=== PATIENT | male | born 1935 | race Caucasian/White ===

== ENCOUNTER 2018-10-26 18:04 | Inpatient (IN) ==
[2018-10-26] MEDS ORDERED: TYLENOL PO PRN ×2 (18:46→18:56)
[2018-10-26] MEDS ORDERED: DESYREL PO PRN (18:56)
[2018-10-26] MEDS ORDERED: ULTRACET 37.5MG/325MG PO PRN (18:56)
--- NOTE | 2018-10-26 20:10 | HISTORY AND PHYSICAL ---
PRIMARY CARE PHYSICIAN: Dr. Jakub Peres. CHIEF COMPLAINT: Massive lower extremity edema with oozing, right greater than left. HISTORY OF PRESENT ILLNESS: An 83-year-old white male with a complicated past medical history presents for evaluation of above-mentioned symptoms. Pertinent history of present illness began several months ago. At that time, patient developed increasing lower extremity edema. The patient has been treated on multiple occasions with diuretics as well as with antibiotics secondary to venous stasis ulceration. Patient has been instructed to elevate his legs when sitting. We have also discussed lymphedema treatment, although the patient is not willing. Over the course of the last week, patient has redeveloped a massive lower extremity edema, right greater than left. The patient has developed increasing oozing to the right lower extremity. He states overall he feels well. He denies chest discomfort, palpitations, shortness of breath, nausea, vomiting, dysuria, hematuria, pyuria, and changes in bowel movements. The patient presented to my office today after his assisted living facility encouraged evaluation secondary to progressive symptoms. Because of severity of his disease and concern for lower extremity compromised, patient will be admitted to the hospital for full evaluation and management. PAST MEDICAL HISTORY: 1. Dementia treated with Aricept and Seroquel therapy. 2. Longstanding stasis dermatitis. 3. Longstanding lower extremity edema secondary to venous stasis and diastolic dysfunction. 4. Benign prostatic hypertrophy. 5. Reflux disease. 6. Hypertension. 7. Hypertriglyceridemia. 8. Gout. 9. Hyperlipidemia. 10. Hypokalemia. 11. Impaired fasting glucose. 12. Low HDL. 13. Anticoagulation secondary to atrial fibrillation. 14. Low back pain. 15. Mitral regurgitation. 16. History of a laryngeal mass status post resection in 1970. 17. Nephrolithiasis. 18. Osteoarthritis. 19. Paroxysmal atrial fibrillation. 20. History of 2 melanomas status post resection. Last was in 2009 and included positive axillary lymph nodes. 21. Insomnia. 22. Longstanding diastolic dysfunction. CURRENT MEDICATIONS: 1. Acetaminophen 650 mg every 6 hours as needed. 2. Aricept 10 mg at bedtime. 3. Citalopram 20 mg daily. 4. Coumadin 2 mg nightly except 3 mg on Sundays and Wednesdays. 5. Fenofibrate 145 mg at bedtime. 6. Finasteride 5 mg daily. 7. Hydrochlorothiazide 25 mg daily. 8. Omeprazole 20 mg twice daily. 9. Potassium chloride 10 mEq 2 tablets in the morning. 10. Pravastatin 20 mg at bedtime. 11. Seroquel 25 mg at bedtime. 12. Tamsulosin 0.4 mg daily. 13. Tenormin 25 mg 1/2 tablet twice daily. 14. Trazodone 50 mg at bedtime. 15. Verapamil ER 120 mg twice daily. 16. Zofran as needed. ALLERGIES: The patient states he is allergic to codeine which causes nausea and vomiting. SOCIAL HISTORY: Patient previously smoked 1-1/2 packs per day for 20 years. He stopped in 1971. He denies alcohol or illicit drug use. 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 He previously enjoyed golf. He does not exercise routinely. FAMILY HISTORY: Patient's father passed at age 84 secondary to complications of lung cancer. Patient's mother passed at age 74 secondary to complications of a stroke. REVIEW OF SYSTEMS: A 12 point review of systems was performed. Pertinent positives and negatives noted in history present illness. PHYSICAL EXAMINATION: VITAL SIGNS: Temperature 97.8 degrees, heart rate 87, respirations 16, blood pressure 119/74. GENERAL: Well nourished, well developed, no acute distress. HEENT: Normocephalic, atraumatic. Pupils equal, round, react to light. Extraocular muscles intact. Sclerae anicteric. [place] conjunctivae. Oral and nasopharynx clear without exudate. NECK: Supple. No lymphadenopathy. No thyromegaly. No bruits auscultated. CARDIOVASCULAR: Regular rate and rhythm. No significant murmurs, rubs, or gallops. PULMONARY: Clear to auscultation bilaterally. ABDOMEN: Soft, nontender, nondistended. Positive bowel sounds. EXTREMITIES: Moves all extremities well. No significant clubbing or cyanosis. 3+ lower extremity edema on the right with ulceration and oozing, 2+ lower extremity edema on the left. NEUROLOGIC: Cranial nerves 2-12 grossly intact. Motor and sensory grossly intact. PSYCHOLOGIC: Reveals pleasant dementia. LABORATORY DATA: Pending at the time of admission. ASSESSMENT AND PLAN: An 83-year-old white male with a complicated past medical history as noted presents for evaluation of massive lower extremity edema with associated oozing, erythema, and localized fever. Patient will be admitted to the hospital for full evaluation and management of each of these conditions. 1. Admit to General Medicine. 2. Massive lower extremity edema-this likely is a combination of diastolic heart failure and venous insufficiency. We will check labs to confirm adequate renal function. If this returns adequate, we will initiate Lasix therapy. We will treat patient's lower extremity ulcers with associated cellulitis as described below. Long-term, patient would benefit from lower extremity compression hose. Thus far, he has been noncompliant. 3. Venous stasis ulcerations-patient does have sloughing of the skin of the right lower extremity. This likely is secondary to venous stasis. We will treat patient's edema as noted. We will consult wound care. We will treat cellulitis as described below. 4. Cellulitis-this is likely secondary to compromised skin to the right lower extremity. We will treat patient with doxycycline therapy. We will treat underlying massive lower extremity edema as described above. 5. Benign prostatic hypertrophy-we will continue patient on Flomax and finasteride therapy. 6. Reflux disease-symptoms are controlled with omeprazole therapy. We will continue this. 7. Hypertension-we will continue patient's home medications for now. We will remain aware that verapamil may be contributing to his lower extremity edema. At this point, he is being treated for underlying paroxysmal atrial fibrillation as well. We will consider adjusting those medications while hospitalized and while on telemetry. 8. Hypertriglyceridemia-we will continue fenofibrate therapy. 9. Hyperlipidemia-we will continue patient on pravastatin therapy. 10. Paroxysmal atrial fibrillation-we will remain aware. We will follow patient on telemetry. 11. Fluid, electrolytes, nutrition. We will monitor electrolytes. Saline lock IV. Cardiac prudent diet. 12. Prophylaxis. Patient will be continued on Coumadin therapy. cc: Jakub Peres MD
[2018-10-26 20:25] LABS: BASO# 0.02 X1000 (0.0-0.2); BASO% 0.4 % (0.0-0.8); EOS# 0.21 X1000 (0.0-0.7); HEMATOCRIT 37.2 % (42.0-52.0); HEMOGLOBIN 12.1 g/dL (14.0-18.0); LYMPH# 0.86 X1000 (1.2-3.4); LYMPH% 16.6 % (20.5-51.1); MCH 28.9 PG (27-31); MCHC 32.5 g/dL (33-37); MONO# 0.74 X1000 (0.11-0.59); MONO% 14.3 % (1.7-9.3); MPV 10.3 FL (7.4-10.4); NEUT# 3.36 X1000 (1.4-6.5); NEUT% 64.7 % (42.2-75.2); PLT 224 X1000 (130-400); RBC 4.18 XMIL (4.7-6.1); RDW 16.5 % (11.5-14.5); WBC 5.19 X1000 (4.8-10.8)
[2018-10-26 20:30] LABS: INR 1.69; PROTIME 21.2 Seconds (11.0-16.0)
[2018-10-26 20:44] LABS: CALCIUM 8.4 mg/dL (8.8-10.2); CREATININE 1.3 mg/dL (0.7-1.2); POTASSIUM 3.5 mmol/L (3.5-5.1); TOTAL BILIRUBIN 0.38 mg/dL (0.20-1.00); TOTAL PROTEIN 6.1 g/dL (6.3-8.3)
[2018-10-26] MEDS ORDERED: LASIX IV ONE (21:12)
[2018-10-26] MEDS: TRICOR PO SCH (22:46)
[2018-10-26] MEDS: TENORMIN PO SCH (22:46)
[2018-10-26] MEDS: PRILOSEC PO SCH (22:46)
[2018-10-26] MEDS: DOXYCYCLINE PO SCH (22:46)
[2018-10-26] MEDS: SEROQUEL PO SCH (22:47)
[2018-10-26] MEDS: PRAVACHOL PO SCH (22:47)
[2018-10-26] MEDS: ARICEPT PO SCH (22:47)
[2018-10-26] MEDS: ISOPTIN SR PO SCH (22:57)
[2018-10-26] MEDS: COUMADIN PO SCH (22:57)
[2018-10-27 05:08] LABS: URINE SOURCE CLEAN CATCH
[2018-10-27 05:12] LABS: BASO# 0.02 X1000 (0.0-0.2); BASO% 0.3 % (0.0-0.8); EOS# 0.18 X1000 (0.0-0.7); EOS% 2.7 % (0.0-10.0); HEMATOCRIT 38.3 % (42.0-52.0); HEMOGLOBIN 12.6 g/dL (14.0-18.0); LYMPH# 1.05 X1000 (1.2-3.4); LYMPH% 15.8 % (20.5-51.1); MCH 29.1 PG (27-31); MCHC 32.9 g/dL (33-37); MCV 88.5 FL (81-99); MONO# 0.82 X1000 (0.11-0.59); MONO% 12.3 % (1.7-9.3); MPV 9.7 FL (7.4-10.4); NEUT# 4.58 X1000 (1.4-6.5); NEUT% 68.9 % (42.2-75.2); PLT 218 X1000 (130-400); RBC 4.33 XMIL (4.7-6.1); RDW 16.5 % (11.5-14.5); WBC 6.65 X1000 (4.8-10.8)
[2018-10-27 05:13] LABS: BILIRUBIN URINE NEGATIVE (NEGATIVE); BLOOD URINE NEGATIVE (NEGATIVE); COLOR STRAW; GLUCOSE URINE NEGATIVE (NEGATIVE); KETONE URINE NEGATIVE (NEGATIVE); LEUKOCYTES URINE NEGATIVE (NEGATIVE); NITRITE URINE NEGATIVE (NEGATIVE); PH URINE 7.5; PROTEIN URINE NEGATIVE (NEGATIVE); TURBIDITY URINE CLEAR (CLEAR); UROBILINOGEN URINE NORMAL (NORMAL)
[2018-10-27 05:14] LABS: UR EPITHELIAL CELLS <10 /HPF (<10); URINE BACTERIA NEGATIVE /HPF; URINE RBC <10 /HPF (<10); URINE WBC <10 /HPF (<10)
[2018-10-27 05:37] LABS: AGAP 9; ALBUMIN 3.2 g/dL (3.5-5.0); ALKALINE PHOSPHATASE 52 U/L (32-122); BUN 20 mg/dL (8-22); CALCIUM 8.7 mg/dL (8.8-10.2); CHLORIDE 102 mmol/L (98-107); COSMO 282; CREATININE 1.1 mg/dL (0.7-1.2); ESTIMATED GFR > 60; GLUCOSE 90 mg/dL (70-104); GOT 16 U/L (10-34); GPT 9 U/L (10-44); MAGNESIUM 1.8 mg/dL (1.5-2.7); POTASSIUM 3.2 mmol/L (3.5-5.1); SODIUM 140 mmol/L (136-145); TCO2 29 mmol/L (25-35); TOTAL PROTEIN 6.3 g/dL (6.3-8.3)
[2018-10-27] MEDS ORDERED: MAGNESIUM SULFATE 1 GM/D5W 1 GM/100 ML IVPB IV ONE (05:49)
[2018-10-27] MEDS ORDERED: KLOR-CON PO ONE ×2 (08:04→17:25)
[2018-10-27] MEDS ORDERED: LASIX IV ONE ×2 (08:05→17:25)
--- NOTE | 2018-10-27 08:58 | Diag Imaging Result Doc PS360 ---
EXAM: CHEST-PORTABLE HISTORY: volume overload TECHNIQUE: Chest single view COMPARISON: 07/01/2016 FINDINGS: The lungs are well expanded. No cardiomegaly. There is pulmonary edema. No pleural effusions identified. No consolidation. IMPRESSION: Increased interstitial markings consistent with pulmonary edema. Electronically signed by Osito Gomez 10/27/2018 8:56 AM
[2018-10-27] MEDS: KLOR-CON PO SCH (10:14)
[2018-10-27] MEDS: CELEXA PO SCH (10:14)
[2018-10-27] MEDS: PRILOSEC PO SCH (10:14)
[2018-10-27] MEDS: DOXYCYCLINE PO SCH ×2 (10:14→20:32)
[2018-10-27] MEDS: TENORMIN PO SCH ×2 (10:15→20:32)
[2018-10-27] MEDS: FLOMAX PO SCH (10:15)
[2018-10-27] MEDS: ISOPTIN SR PO SCH ×2 (10:15→20:32)
[2018-10-27] MEDS: PROSCAR PO SCH (10:16)
--- NOTE | 2018-10-27 11:38 | PROGRESS NOTE ---
DATE: 10/27/2018 SUBJECTIVE: The patient was admitted yesterday with massive lower extremity edema and venous ulceration of the right lower extremity. Laboratory data suggested an elevated ProBNP with normal renal function. Chest x-ray suggested pulmonary edema. Lasix therapy was initiated. The patient tolerated this quite well. This morning, the patient states, overall, he continues to feel reasonably well. He notes a decrease in his lower extremity edema. He denies significant pain. The patient was again given a dose of Lasix. He has begun adequate urine output. There has been no evidence of fevers, chills, nausea, vomiting, chest pains, or palpitations. OBJECTIVE: Vital Signs: T-max 98.2, heart rate 89 to 109, respirations 16 to 27, blood pressure 127-133/61-70. General: No acute distress. Cardiovascular: Irregularly irregular. No significant murmurs, rubs, or gallops. Pulmonary: Clear to auscultation bilaterally. Abdomen: Soft, nontender, nondistended. Positive bowel sounds. Extremities: Moves all extremities well. No significant clubbing or cyanosis. Patient continues to have 2 to 3+ lower extremity edema on the right and 1 to 2+ lower extremity edema on the left with erythema. Ulceration is noted, but appears clean on the right lower extremity. Dermatologic: Evaluation is as described above. Laboratory Data: White blood cell count is 6.65, hemoglobin 12.6, hematocrit 38.3, platelet count is 218,000. Sodium 140, potassium 3.2, chloride 102, bicarb 29, BUN 20, creatinine 1.1, glucose 90, calcium 8.7, magnesium 1.8. Total bilirubin 0.60, total protein 6.3, albumin 3.2, alkaline phosphatase 52, AST 16, ALT 9. ASSESSMENT AND PLAN: 1. Massive lower extremity edema-this likely is secondary to a combination of diastolic dysfunction and venous insufficiency. The patient has achieved some improvement with Lasix intervention. He has been dosed again this morning. We will check lower extremity venous Dopplers and an echocardiogram today. We will follow these up and address as necessary. 2. Venous stasis ulcerations-with a decrease in his lower extremity edema, the pressure ulcers likely will show improvement. At the present time, I do not see any significant purulent discharge. We will treat patient's cellulitis as below. 3. Cellulitis-this likely is a consequence of compromised skin to the right lower extremity. We will continue doxycycline therapy. 4. Benign prostatic hypertrophy-we will continue Flomax and finasteride therapy. 5. Reflux disease-the patient's symptoms are controlled with omeprazole therapy. 6. Hypertension-blood pressure is controlled on his current regimen. We will remain aware that verapamil may be contributing to his lower extremity edema. At this point, the benefits of blood pressure and atrial fibrillation control outweigh the risks. 7. Atrial fibrillation-patient is rate controlled. We will continue his current regimen. He is anticoagulated with Coumadin. 8. Hypertriglyceridemia-we will continue fenofibrate therapy. 9. Hyperlipidemia- we will continue pravastatin therapy. 10. Disposition-at this point, the patient continues to require senior care care in a hospital setting. We will plan discharge home once appropriate. cc: Jakub Peres MD
--- NOTE | 2018-10-27 17:21 | ECHO REPORT ---
ORDER DATE: 10/27/2018 INTERPRETING PHYSICIAN: Jorge Prince MD. INDICATION: An 83-year-old male with atrial fibrillation, CHF. M-MODE MEASUREMENTS: Left ventricle end diastole: 4.7 cm. Left ventricle end systole: 3.0 cm. Posterior wall: 1.3 cm. Interventricular septum: 1.3 cm. Left atrium: 4.3 cm. Aortic root: 3.9 cm. SUMMARY OF 2-DIMENSIONAL IMAGIN. The study is technically difficult. 2. The left ventricular function appears to be normal, estimated at 66%. 3. The left atrium is significantly enlarged. 4. The right-sided chambers appear to be mildly enlarged. 5. The inferior vena cava is moderately enlarged. Pulmonary pressure is estimated at 51-56 mmHg. 6. There is a mild degree of tricuspid regurgitation. 7. The pulmonic valve appears to be unremarkable. 8. The aortic valve appears to be grossly normal. Color flow mapping unremarkable. 9. The mitral valve shows a mild degree of regurgitation. 10.The patient is in atrial fibrillation. Diastolic function could not be evaluated properly. 11.There is no pericardial effusion, masses, nor thrombus. Clinical correlation recommended. cc: MD Jakub Montgomery MD
[2018-10-27] MEDS: TRICOR PO SCH (20:33)
[2018-10-27] MEDS: ARICEPT PO SCH (20:33)
[2018-10-27] MEDS: PRAVACHOL PO SCH (20:33)
[2018-10-27] MEDS: SEROQUEL PO SCH (20:33)
[2018-10-27] MEDS ORDERED: COUMADIN PO SCH (21:00)
[2018-10-28] MEDS: PRILOSEC PO SCH ×3 (01:13→21:52)
[2018-10-28 07:07] LABS: INR 1.8; PROTIME 22.3 Seconds (11.0-16.0)
[2018-10-28 07:24] LABS: AGAP 11; ALBUMIN 2.9 g/dL (3.5-5.0); ALKALINE PHOSPHATASE 45 U/L (32-122); BUN 23 mg/dL (8-22); CALCIUM 8.3 mg/dL (8.8-10.2); CHLORIDE 102 mmol/L (98-107); COSMO 281; ESTIMATED GFR > 60; GLUCOSE 101 mg/dL (70-104); GOT 24 U/L (10-34); GPT 10 U/L (10-44); POTASSIUM 3.2 mmol/L (3.5-5.1); SODIUM 139 mmol/L (136-145); TCO2 26 mmol/L (25-35); TOTAL BILIRUBIN 0.75 mg/dL (0.20-1.00); TOTAL PROTEIN 5.9 g/dL (6.3-8.3)
[2018-10-28] MEDS ORDERED: KLOR-CON PO ONE ×2 (08:37→15:19)
[2018-10-28] MEDS ORDERED: LASIX IV ONE ×2 (08:38→15:18)
[2018-10-28] MEDS: TENORMIN PO SCH ×2 (11:25→21:52)
[2018-10-28] MEDS: PROSCAR PO SCH (11:25)
[2018-10-28] MEDS: FLOMAX PO SCH (11:25)
[2018-10-28] MEDS: DOXYCYCLINE PO SCH ×2 (11:26→21:52)
[2018-10-28] MEDS: CELEXA PO SCH (11:26)
[2018-10-28] MEDS: KLOR-CON PO SCH (11:26)
[2018-10-28] MEDS: ISOPTIN SR PO SCH ×2 (11:26→21:52)
--- NOTE | 2018-10-28 20:32 | PROGRESS NOTE ---
DATE: 10/28/2018 SUBJECTIVE: Overall, the patient's condition continues to slowly improve. This morning, the patient was assessed. He was resting in bed. He noted decreased lower extremity edema. Otherwise, he denied complaints. The patient was diuresed this morning and again late afternoon. This evening, patient is again lying in bed. The patient states he has had a good day. His oral intake is adequate. His energy level is reasonable. He denies fevers, chills, nausea, vomiting, shortness of breath, or chest discomfort. OBJECTIVE: Vital Signs: T-max is 98.6 degrees, heart rate 81 to 111, respirations 16 to 30, blood pressure 112 to 135 over 47 to 60.. General: Well nourished, well developed, in no acute distress. Cardiovascular: Irregularly irregular. No significant murmurs, rubs, or gallops. Pulmonary: Clear to auscultation bilaterally. Abdomen: Soft, nontender, nondistended. Positive bowel sounds. Extremities: Moves all extremities well. No significant clubbing or cyanosis. There is 1+ lower extremity edema bilaterally, greatly improved from previous. Dermatologic: Evaluation reveals a venous stasis ulcer with drying and the beginning of an eschar. No evidence of erythema. LABORATORY DATA: Sodium 139, potassium 3.2, chloride 102, bicarbonate 26, BUN 23, creatinine 1.0, glucose 101, calcium 8.3, total bilirubin 0.75, total protein 5.9, albumin 2.9, alkaline phosphatase 45, AST 24, ALT 10. ASSESSMENT AND PLAN: 1. Massive lower extremity edema. This likely is a combination of diastolic dysfunction and venous insufficiency. I am very encouraged with his improvement. We will continue diuresis. We will recheck laboratory data in the morning to confirm adequate renal function. We will determine if further diuresis is necessary at that time. 2. Venous stasis with associated ulceration. The patient's lower extremity edema has improved considerably. We will continue treatment with antibiotic for underlying cellulitis. We will encourage the patient to clean this area with soap and water routinely. 3. Cellulitis. This likely is a consequence of compromised skin associated with venous stasis ulcerations. He is being treated with doxycycline successfully. 4. Benign prostatic hypertrophy. We will continue Flomax and finasteride therapy. 5. Reflux disease. The patient's symptoms are controlled with omeprazole therapy. 6. Hypertension. The patient's blood pressure is reasonably controlled on his current regimen. We will continue this for now. 7. Atrial fibrillation. The patient is rate controlled and anticoagulated. Once again, we will continue home medications. 8. Hypertriglyceridemia/hyperlipidemia. We will continue both pravastatin and fenofibrate therapy. He tolerates this well. 9. Disposition. At this point, the patient continues to require usp care in a hospital setting. We will plan discharge home once appropriate. cc: Jakub Peres MD
[2018-10-28] MEDS: ARICEPT PO SCH (21:51)
[2018-10-28] MEDS: PRAVACHOL PO SCH (21:52)
[2018-10-28] MEDS: TRICOR PO SCH (21:52)
[2018-10-28] MEDS: SEROQUEL PO SCH (21:52)
[2018-10-28] MEDS: COUMADIN PO SCH (22:05)
[2018-10-29 07:26] LABS: AGAP 9; BUN 24 mg/dL (8-22); CALCIUM 8.3 mg/dL (8.8-10.2); CHLORIDE 102 mmol/L (98-107); COSMO 281; CREATININE 0.9 mg/dL (0.7-1.2); ESTIMATED GFR > 60; GLUCOSE 88 mg/dL (70-104); POTASSIUM 3.4 mmol/L (3.5-5.1); SODIUM 139 mmol/L (136-145); TCO2 28 mmol/L (25-35)
[2018-10-29] MEDS ORDERED: KLOR-CON PO ONE (08:27)
[2018-10-29] MEDS ORDERED: LASIX IV ONE (08:27)
[2018-10-29] MEDS: KLOR-CON PO SCH (10:43)
[2018-10-29] MEDS: DOXYCYCLINE PO SCH (10:43)
[2018-10-29] MEDS: ISOPTIN SR PO SCH (10:43)
[2018-10-29] MEDS: TENORMIN PO SCH (10:44)
[2018-10-29] MEDS: CELEXA PO SCH (10:44)
[2018-10-29] MEDS: FLOMAX PO SCH (10:44)
[2018-10-29] MEDS: PROSCAR PO SCH (10:44)
[2018-10-29] MEDS: PRILOSEC PO SCH (10:44)
--- NOTE | 2018-10-29 13:39 | Extremity Venous Study ---
PROCEDURE NAME: Venous U/S Bilateral Legs - 10/27/2018 PROCEDURE: Bilateral lower extremity venous duplex study. DATE OF STUDY: 10/27/2018. REFERRING PHYSICIAN: Dr. Jakub Peres. READING PHYSICIAN: Dr. Foreign Mota. OUTBOUND TELEMARKETER: Doe. INDICATION: Chronic bilateral leg swelling, right worse than left. There is a comparison study on 11/27/2014. FINDINGS: The deep and superficial veins of both lower extremities were imaged throughout their course. They are compressible, patent without thrombus. Reflux is noted at multiple levels, including the right common femoral and greater saphenous veins, and the left common femoral, superficial femoral, popliteal, and greater saphenous veins. Subcutaneous edema is noted in the right calf. INTERPRETATION: No DVT or SVT of either lower extremity. There is bilateral deep and superficial vein reflux as described above, and some soft tissue subcutaneous edema in the right calf. This is unchanged from the prior study on 11/27/2014. cc: MD Jakub Jasmine MD
[2018-10-29 20:06] VITALS: BP 127/63
--- NOTE | 2018-10-29 21:14 | DISCHARGE SUMMARY ---
ADMISSION DATE: 10/26/2018 DISCHARGE DATE: 10/29/2018 ADMISSION DIAGNOSES: 1. Massive lower extremity edema, improved with diuresis. 2. Venous stasis with associated ulceration, improving. 3. Cellulitis, improving. 4. Benign prostatic hypertrophy, present on arrival. 5. Reflux disease, present on arrival. 6. Hypertension, present on arrival. 7. Atrial fibrillation, present on arrival. 8. Hypertriglyceridemia, present on arrival. 9. Hyperlipidemia, present on arrival. CONSULTATIONS: None. PROCEDURES: 1. Chest x-ray was performed on 10/27/2018 which revealed increased interstitial markings consistent with pulmonary edema. 2. An echocardiogram was performed on 10/27/2018 which revealed left ventricular function appears to be normal estimated 66%. Left atrium is significantly enlarged. Right-sided chambers appear to be mildly enlarged. Inferior vena cava is moderately enlarged. Pulmonary pressure is estimated 51 to 56 mmHg. Mild degree of tricuspid regurgitation. Pulmonic valve appears unremarkable. Aortic valve appears to be grossly normal. Mitral valve shows mild degree of regurgitation. There is no pericardial effusion, mass, nor thrombus identified. 3. Extremity venous Dopplers revealed no DVT or SVT of either lower extremity. There is bilateral deep and superficial vein reflux with some soft tissue subcutaneous edema on the right calf. This is unchanged from prior study of 11/27/2014 . HISTORY AND PHYSICAL EXAMINATION: See admit note. PHYSICAL EXAMINATION PRIOR TO DISCHARGE: Temperature 98.4 degrees, heart rate 86, respirations 20, blood pressure 121/63. General: Elderly, no acute distress. Cardiovascular: Irregularly irregular. No significant murmurs, rubs, or gallops. Pulmonary: Clear to auscultation bilaterally. Abdomen: Soft, nontender, nondistended. Positive bowel sounds. Extremities: Moves all extremities well. Trace to 1+ lower extremity edema bilaterally, significantly improved from admission. No clubbing or cyanosis. Dermatologic: Evaluation reveals improving right lower extremity venous stasis ulcer. LABORATORY DATA: Prior to discharge sodium 139, potassium 3.4, chloride 102, bicarb 28, BUN 24, creatinine 0.9, glucose 88, calcium 8.3. HOSPITAL COURSE: Patient was admitted as per history and physical examination. Hospital course per condition is as follows. 1. Massive lower extremity edema-upon admission, patient was noted to have massive lower extremity edema. Echocardiogram and venous Dopplers returned as described above. This likely is a consequence of right-sided heart disease as well as venous insufficiency. With aggressive diuresis, patient achieved significant improvement. Patient will be discharged with instructions to elevate lower extremities when sitting. Once his lower extremity venous ulcer has improved, we will initiate compression hose. We will discharge patient on hydrochlorothiazide daily except Sundays and Wednesdays Lasix 80 mg. We will follow patient's clinical course closely. 2. Venous stasis with associated ulceration-as above, patient's lower extremity edema was treated as above. The patient has achieved significant improvement in his edema. We will continue diuretics as described above. We will encourage support hose once his lower extremity ulceration has improved. 3. Cellulitis-this likely was a consequence of compromised skin associated with venous stasis ulcerations. The patient was treated with doxycycline while hospitalized with improvement. We will complete 5 additional days as an outpatient. 4. Benign prostatic hypertrophy-the patient was maintained on home medications while hospitalized. Symptoms remain controlled. 5. Reflux disease-patient was continued on omeprazole therapy successfully. 6. Hypertension-patient's blood pressure remained adequately controlled on his current regimen. He will be discharged home with the same regimen as upon admission. 7. Atrial fibrillation-patient remained rate controlled and anticoagulated. He was asymptomatic while hospitalized. 8. Hypertriglyceridemia/hyperlipidemia-patient was continued on pravastatin and fenofibrate while hospitalized. He will continue this as an outpatient. DISCHARGE CONDITION: Stable. DISPOSITION: Discharge to home. MEDICATIONS: 1. Coumadin 3 mg on Thursday and Thursday night and 2 mg on Thursday, Thursday, , Thursday, and Thursday night. 2. Doxycycline 100 mg twice daily for 5 days. 3. Lasix 80 mg daily on Thursday and Thursday morning. 4. Hydrochlorothiazide 25 mg daily on Thursday, Thursday, , Thursday, and Thursday. 5. Pravastatin 20 mg at bedtime. 6. Tamsulosin 0.4 mg daily. 7. Proscar 5 mg daily. 8. Citalopram 20 mg daily. 9. Trazodone 50 mg at bedtime as needed. 10. Seroquel 25 mg at bedtime. 11. Tricor 145 mg at bedtime. 12. Omeprazole 20 mg twice daily. 13. Donepezil 10 mg at bedtime. 14. Atenolol 12.5 mg twice daily. 15. Verapamil 120 mg twice daily. 16. Ultracet every 6 hours as needed. 17. Tylenol 650 mg every 4 hours as needed. 18. Potassium chloride 20 mEq daily on Thursday, Thursday, , Thursday, and Thursday and 40 mEq on Thursday and Thursday. FOLLOWUP: The patient is to follow up with me in approximately 1 to 2 weeks. cc: Jakub Peres MD
== END 2018-10-29 20:07 | disposition home health service (06) | DRG 299 ==
LOC: DIRADM 18:04 → 4N 18:38
PROVIDERS: ADMIT Internal Medicine; ATTEND Internal Medicine
CPT/HCPCS: 71010; 71045; 80048; 80053; 81001; 83735; 83880; 84443; 85025; 85610; 93005; 93306; 93970; 94761; 97116; 97162; 97530; A9270; J1940; J3475; S0138

== ENCOUNTER 2019-06-25 00:32 | Inpatient (IN) ==
[2019-06-25] MEDS ORDERED: NS 1,000 ML IV ONE (00:50)
[2019-06-25 01:48] LABS: BASO# 0.02 X1000 (0.0-0.2); BASO% 0.2 % (0.0-0.8); EOS# 0.07 X1000 (0.0-0.7); EOS% 0.8 % (0.0-10.0); HEMATOCRIT 36.8 % (42.0-52.0); HEMOGLOBIN 11.8 g/dL (14.0-18.0); LYMPH# 0.89 X1000 (1.2-3.4); LYMPH% 10.3 % (20.5-51.1); MCH 30.6 PG (27-31); MCHC 32.1 g/dL (33-37); MCV 95.3 FL (81-99); MONO# 1.63 X1000 (0.11-0.59); MONO% 18.8 % (1.7-9.3); MPV 10.4 FL (7.4-10.4); NEUT# 6.05 X1000 (1.4-6.5); NEUT% 69.9 % (42.2-75.2); PLT 207 X1000 (130-400); RBC 3.86 XMIL (4.7-6.1); RDW 15.7 % (11.5-14.5); WBC 8.66 X1000 (4.8-10.8)
[2019-06-25 02:04] LABS: URINE SOURCE CLEAN CATCH
[2019-06-25 02:07] LABS: INFLUENZA A NEGATIVE (NEGATIVE); INFLUENZA B NEGATIVE (NEGATIVE)
[2019-06-25 02:08] LABS: BILIRUBIN URINE NEGATIVE (NEGATIVE); BLOOD URINE LARGE (NEGATIVE); COLOR ORANGE; GLUCOSE URINE NEGATIVE (NEGATIVE); KETONE URINE TRACE mg/dL (NEGATIVE); LEUKOCYTES URINE MODERATE (NEGATIVE); NITRITE URINE NEGATIVE (NEGATIVE); PH URINE 5.5; PROTEIN URINE 100 mg/dL (NEGATIVE); SP GRAVITY URINE 1.029; TURBIDITY URINE TURBID (CLEAR); UR EPITHELIAL CELLS <10 /HPF (<10); URINE BACTERIA NEGATIVE /HPF; URINE RBC TNTC /HPF (<10); URINE WBC TNTC /HPF (<10); UROBILINOGEN URINE 2 mg/dL (NORMAL)
[2019-06-25 02:12] LABS: AGAP 13; ALB/GLOB RATIO 0.7; ALBUMIN 2.7 g/dL (3.5-5.0); ALKALINE PHOSPHATASE 66 U/L (32-122); BUN 21 mg/dL (8-22); CHLORIDE 102 mmol/L (98-107); COSMO 285; CREATININE 1.1 mg/dL (0.7-1.2); ESTIMATED GFR > 60; GLUCOSE 105 mg/dL (70-104); GOT 16 U/L (10-34); GPT 6 U/L (10-44); LIPASE 12 U/L (13-60); POTASSIUM 3.6 mmol/L (3.5-5.1); SODIUM 141 mmol/L (136-145); TCO2 26 mmol/L (25-35); TOTAL PROTEIN 6.4 g/dL (6.3-8.3)
[2019-06-25 03:10] LABS: URINE CASTS NONE SEEN; URINE CRYSTALS NONE SEEN; URINE SMALL ROUND CELLS NONE SEEN; URINE YEAST PRESENT
[2019-06-25] MEDS ORDERED: ZOSYN 3.375 GM in NS 50 ML IV ONE (03:13)
[2019-06-25] MEDS ORDERED: VANCOMYCIN 1 GM/NS 1 GM/250 ML IVPB IV ONE (03:13)
--- NOTE | 2019-06-25 03:46 | PROVIDER DOCUMENTATION ---
This chart was entered by Danelle Ahn Scribe, acting as scribe for Barb Keyes MD. HPI-General Adult - General Chief Complaint: Shortness of Breath Stated Complaint: AMS Time Seen by Provider: 06/25/19 00:45 Source: patient, EMS Allergies/Adverse Reactions: Patient Allergies Allergy/AdvReac Type Severity Reaction Status Date / Time Sulfa (Sulfonamide Allergy Unknown Verified 07/04/15 06:37 Antibiotics) codeine [Codeine] AdvReac Intermediate NAUSEA/VOMI Verified 06/27/15 10:01 TING Home Medications: Home Medication List Medication Instructions Recorded Confirmed Last Taken Type Finasteride [Proscar] 5 mg PO DAILY 01/10/13 06/25/19 07/02/15 History Pravastatin Sodium [Pravachol] 20 mg PO HS 01/10/13 06/25/19 07/02/15 History Tamsulosin [Flomax] 0.4 mg PO DAILY 01/10/13 06/25/19 07/02/15 History Fenofibrate [Tricor] 145 mg PO HS #0 tablet 07/15/13 06/25/19 07/02/15 Rx Omeprazole 20 mg PO BID 11/27/13 06/25/19 07/02/15 History Donepezil [Aricept] 10 mg PO QHS #30 tablet 12/01/14 06/25/19 07/02/15 Rx Verapamil HCl [Verapamil ER] 120 mg PO DIRECTED 05/31/15 06/25/19 07/02/15 History Potassium Chloride [Klor-Con M10] 20 meq PO DIRECTED #0 10/29/18 06/25/19 07/02/15 Rx Atenolol [Tenormin] 12.5 mg PO BID 06/25/19 06/25/19 Unknown History Cholecalciferol (Vitamin D3) 1,000 unit PO DAILY 06/25/19 06/25/19 Unknown History [Vitamin D3] Duloxetine HCl [Drizalma Sprinkle] 40 mg PO DAILY 06/25/19 06/25/19 Unknown History Furosemide [Lasix] 80 mg PO DAILY 06/25/19 06/25/19 Unknown History Memantine HCl [Namenda] 5 mg PO HS 06/25/19 06/25/19 Unknown History Ondansetron HCl [Zofran] 4 mg PO DAILY PRN PRN 06/25/19 06/25/19 Unknown History Quetiapine [Seroquel] 25 mg PO DIRECTED 06/25/19 06/25/19 Unknown History Warfarin [Coumadin] 2 mg PO RANJAN@2100 06/25/19 06/25/19 Unknown History Warfarin [Coumadin] 3 mg PO DIRECTED 06/25/19 06/25/19 Unknown History - History of Present Illness -Gen Adult Nature of Presenting Problems: pt is a 84 yr old male presenting via EMS from LTC facility for productive cough. per EMS room air sats 92%, 96% on 2l NC. no fever per LTC. pt denies any complaints. Location of Pain/Injury: reports: none Pain Radiation: reports: no radiation Quality of Pain: reports: none Severity: reports: moderate Onset/Duration: reports: 24 hours ago Timing: reports: still present, getting worse Context/Activities at Onset: reports: rest Modifying Factors: improves with: other (oxygen improved Sp02 sat) Associated Symptoms: reports: cough. denies: chest pain, EENT symptoms, fever/chills, sinus congestion/drainage, shortness of breath Similar Symptoms Previously?: No Recently seen or treated by another doctor?: No Review of Systems - Adult - REVIEW OF SYSTEMS - ADULT Constitutional: denies: chills, fever Eyes: reports: no symptoms reported Ears, Nose, Mouth & Throat: denies: ear pain, sinus problem, throat pain Cardiovascular: denies: chest pain, palpitations, syncope Respiratory: reports: cough, excessive sputum production. denies: shortness of breath, wheezing Gastrointestinal: reports: no symptoms reported Genitourinary: reports: no symptoms reported Musculoskeletal: reports: no symptoms reported Integumentary: reports: no symptoms reported Neurological: reports: no symptoms reported Psychiatric: reports: no symptoms reported Endocrine: reports: no symptoms reported Hematologic/Lymphatic: reports: no symptoms reported Allergic/Immunologic: reports: no symptoms reported All Other Systems: Reviewed and Negative Past History - Adult - PAST MEDICAL HISTORY-ADULT Review of Records: reports: Old Records Reviewed, Nursing Assessment Review, Medications Reviewed, Social history reviewed & non-contributory. Major Childhood Illnesses: reports: denies history Cardiovascular: reports: denies history Respiratory: reports: denies history Gastrointestinal: reports: denies history Obstetrical/Gynecological: reports: denies history Genitourinary: reports: denies history Musculoskeletal: reports: denies history Neurological: reports: denies history Endocrine/Immune: reports: denies history Other Conditions: reports: denies history - IMMUNIZATION STATUS Childhood Immunizations: See Nurse Assessment Flu Vaccine: See Nurse Assessment - FAMILY HISTORY Family History: reviewed, not pertinent - SOCIAL HISTORY Smoking: quit greater than 1 year Living Situation: care facility Physical Exam-General - PHYSICAL EXAM-ADULT Initial Vital Signs Reviewed: Yes - CONSTITUTIONAL General Appearance: alert, no apparent distress, obese - EYES Eyes: PERRL/EOMI - HEAD, EARS, NOSE, MOUTH & THROAT HENMT: normocephalic/atraumatic, moist mucous membranes - NECK Neck: non-tender, full range of motion, supple, normal inspection - RESPIRATORY Respiratory: chest non-tender, no pleuratic chest pain, rhonchi - CARDIOVASCULAR Cardiovascular: normal peripheral pulses, regular rate, rhythm - GASTROINTESTINAL (ABDOMEN) Abdominal Exam: normal bowel sounds, non tender, soft - LYMPHATIC Lymphatic: no adenopathy - MUSCULOSKELETAL Back Exam: normal inspection, no CVA tenderness, no vertebral tenderness Extremity: normal range of motion, non-tender, normal gait, normal inspection - SKIN Integumentary: normal color, normal turgor, warm/dry - NEUROLOGIC Neurologic: grossly normal, no motor/sensory deficits - PSYCHIATRIC Psych/Mental Status: normal mood/affect, normal thought content, normal thought process, oriented x 3 Progress - PLAN OF CARE/RESULTS Progress/Plan/Lab Results: Vital Signs - 8 hr 06/25/19 00:44 Temperature 98.7 F Pulse Rate 85 Respiratory Rate 20 Blood Pressure 132/63 O2 Sat by Pulse Oximetry 97 cough with hypoxia will further evaluate for causes including but not limited to pna, bronchitis, chf, acs, influenza Result Diagrams: 06/25/19 00:58 06/25/19 00:58 - REASSESSMENT Reassessment #1 Status: improving (feeling well, hypoxia improved with supplemental oxygen but when removed pt again desaturates to 70's. No discrete infiltrate but presentaiton concerning for early PNA also with uti but no signs of sepsis. Treated with vanco and zosyn and will admit. Discussed case with Dr. Yee, Hospitalist, who will see and admit pt.) - XRAY 1 XRAY Study: Chest Impression: Normal Departure - Departure Date of Disposition Decision: 06/25/19 Time of Disposition Decision: 03:45 DIAGNOSIS: Hypoxia UTI (urinary tract infection) Qualifiers: Urinary tract infection type: site unspecified Hematuria presence: with hematuria Qualified Code(s): N39.0 - Urinary tract infection, site not specified; R31.9 - Hematuria, unspecified Pneumonia Qualifiers: Pneumonia type: due to unspecified organism Laterality: unspecified laterality Lung location: unspecified part of lung Qualified Code(s): J18.9 - Pneumonia, unspecified organism Disposition: ADMITTED INPATIENT 09 Certified Medical Emergency: Emergent Condition: Fair - Critical Care Note This patient required my direct & personal management of CC.: No Attestation - Physician/ LION Attestation Patient care was provided by Advanced Practice Provider:: No The physician spent face to face time with patient:: Yes Advanced Practice Provider documentation review:: Supervising physician onsite and consulted in the evaluation and care of this patient. The physician did have a face to face encounter with the patient. This chart was documented by the indicated scribe, (Danelle Ahn Scribe) and accurately reflects the services I performed and decisions made by me, Barb Keyes MD, as attested by the provider's signature.
[2019-06-25 04:51] LABS: CALCIUM 8.8 mg/dL (8.8-10.2)
[2019-06-25] MEDS ORDERED: ZOFRAN PO PRN (05:18)
[2019-06-25] MEDS ORDERED: VANCOMYCIN IV PER PHARMACY MISC SCH (05:41)
[2019-06-25] MEDS ORDERED: ZOFRAN IV PRN (05:41)
[2019-06-25 06:00] LABS: INR 2.43; PROTIME 27.1 Seconds (11.0-16.0)
--- NOTE | 2019-06-25 06:25 | EKG Report ---
Test Performed on : 06/25/2019 06:02:29 AM Test Reason : shortness of breath Blood Pressure : / mmHG Vent. Rate : 103 BPM Atrial Rate : 119 BPM P-R Int : 000 ms QRS Dur : 112 ms QT Int : 336 ms P-R-T Axes : 000 -31 095 degrees QTc Int : 440 ms Atrial fibrillation. with rapid ventricular response. Left axis deviation Pulmonary disease pattern Nonspecific T wave abnormality Abnormal ECG When compared with ECG of 01-JUL-2016 17:37, Vent. rate has increased BY 37 BPM Confirmed by [place] ROJAS, Sameer ([id number]) on 06/27/2019 8:25:06 AM
[2019-06-25] MEDS: SEROQUEL PO SCH ×3 (07:05→16:29)
--- NOTE | 2019-06-25 07:24 | Diag Imaging Result Doc PS360 ---
EXAM: CHEST-1 VIEW HISTORY: cough TECHNIQUE: Single view COMPARISON: 10/27/2018 FINDINGS: The lungs are well expanded. The heart is enlarged and there is pulmonary edema. Trace pleural fluid. There is underlying basilar atelectasis. Development of left hilar prominence. IMPRESSION: 1.Cardiomegaly with pulmonary edema 2.Left hilar prominence which could be adenopathy or mass. A portion of this may be due to rotation as well. CT suggested. Electronically signed by Osito Gomez 06/25/2019 7:22 AM
--- NOTE | 2019-06-25 07:31 | HISTORY AND PHYSICAL ---
PRIMARY CARE PHYSICIAN: Dr. Jakub Peres. CHIEF COMPLAINT: Shortness of breath. HISTORY OF PRESENT ILLNESS: This is an 84-year-old male with a history of dementia. He comes into the emergency room from the residential related to productive cough. His oxygen saturation was in the low 90s. The patient for the most part denies complaint. His chest x-ray shows mildly increased pulmonary vascular congestion. No discrete infiltrates could be made out. He could have an early pneumonia. Patient does have coarse lung sounds and a productive cough and he is mildly tachycardic. He will be admitted for further evaluation and treatment. PAST MEDICAL HISTORY: Dementia, longstanding stasis dermatitis, diastolic dysfunction with lower extremity edema, BPH, GERD, hypertension, hyperlipidemia, gout, atrial fibrillation with anticoagulation with Coumadin, chronic back pain, history of laryngeal mass status post resection, nephrolithiasis, osteoarthritis, 2 melanomas status post resection with positive axillary lymph nodes. SURGICAL HISTORY: Melanoma resections, laryngeal mass resection. SOCIAL HISTORY: Previous smoker, stopped in 1971. No alcohol or illicit drugs. 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 Lives at, I [facility]. FAMILY HISTORY: Father at age 84 secondary to lung cancer. Mother at age 74 secondary to stroke. ALLERGIES: Codeine and sulfa antibiotics. HOME MEDICATIONS: 1. Atenolol 12.5 mg p.o. b.i.d. 2. Vitamin D3 1000 units p.o. daily. 3. Aricept 10 mg p.o. daily. 4. Duloxetine 40 mg p.o. daily. 5. Fenofibrate 145 mg p.o. at bedtime. 6. Finasteride 5 mg p.o. daily. 7. Lasix 80 mg daily. 8. Namenda 5 mg p.o. at bedtime. 9. Omeprazole 20 mg p.o. b.i.d. 10.Zofran 4 mg p.o. daily. 11.Potassium chloride 20 mEq p.o. daily. 12.Pravastatin 20 mg p.o. at bedtime. 13.Seroquel 25 mg p.o. at bedtime. 14.Flomax 0.4 mg p.o. daily. 15.Verapamil 120 mg p.o. daily. 16.Coumadin 2 mg Thursday, , Thursday, 3 mg Thursday, Thursday, Thursday and Thursday. REVIEW OF SYSTEMS: A 14 point review of systems reviewed with patient. He has complained of cough that is sometimes productive. Denies other complaints. Other pertinent positives listed above in the HPI. PHYSICAL EXAMINATION: VITAL SIGNS: Temperature 98.7 degrees, pulse 85, respirations 20, blood pressure 132/63, oxygen saturation 97% on 2 liters nasal cannula. GENERAL: Pleasantly confused 84-year-old male lying in the ER stretcher in no acute distress. HEENT: Head is atraumatic, normocephalic. Pupils equal, round and reactive to light. Extraocular eye movement is intact. Sclerae anicteric. Conjunctivae pink. Oral mucosa is moist. NECK: Supple. No JVD. No thyromegaly. Trachea is midline. No cervical lymphadenopathy. CARDIAC: S1 and S2 appreciated. No murmurs, gallops, rubs. LUNGS: Coarse crepitations noted throughout bilateral lung paris. No wheezing. Symmetrical rise and fall of respirations. ABDOMEN: Protuberant. Soft, nondistended, nontender. Bowel sounds present in all 4 quadrants. Normoactive. No pulsatile mass. No organomegaly. EXTREMITIES: No cyanosis, clubbing. 3+ lower extremity edema with chronic color change secondary to stasis dermatitis. NEUROLOGICAL: Oriented to person, place and time; however, he does have confusion. Cranial nerves 2-12 grossly intact. DIAGNOSTIC DATA: Chest x-ray, mildly increased pulmonary vascular congestion, no discrete infiltrate. LABORATORY DATA: WBC 8.66, hemoglobin 11.8, hematocrit 36.8, platelet count 207,000. Sodium 141, potassium 3.6, chloride 102, carbon dioxide 26, BUN 21, creatinine 1.1, glucose 105. Urine positive for hematuria. Leuko esterase positive with too numerous to count WBCs. Influenza screen is negative. ASSESSMENT AND PLAN: 1. Bronchitis with possible early pneumonia. 2. Chronic diastolic heart failure. 3. Dementia. 4. Paroxysmal atrial fibrillation with chronic Coumadin anticoagulation. 5. BPH. 6. GERD. 7. Hyperlipidemia. 8. Hypertension. PLAN: Patient came from longterm facility. We will treat for healthcare acquired pneumonia. This has been caught in the early stage at present. We will treat with vancomycin and Zosyn. Continue patient's Lasix, antihypertensives and his medications for hyperlipidemia. Patient appears to have some pyuria. This will be covered with Zosyn. He is nonsymptomatic. Continue Coumadin once INR is checked. We will trend INR daily. Continue patient's Aricept and Seroquel secondary to his dementia. Further recommendations per patient's clinical course. Dictated by YAMILE Perez for Bereket Yee MD I have performed a face to face diagnostic evaluation. Labs/ Xrays- reviewed. Exam- Chest- rhonchi, CV- regular. A/P- Acute bronchitis vs early pneumonia- Admit, check blood cultures, IV ABX. Dr. Yee cc: YAMILE Perez MD Scott A. Matthews, MD MTDD
[2019-06-25] MEDS: PROSCAR PO SCH (08:21)
[2019-06-25] MEDS: KLOR-CON PO SCH (08:21)
[2019-06-25] MEDS: FLOMAX PO SCH (08:22)
[2019-06-25] MEDS: LASIX PO SCH (08:22)
[2019-06-25] MEDS: PRILOSEC PO SCH ×2 (08:22→21:39)
[2019-06-25] MEDS: ISOPTIN SR PO SCH (08:22)
[2019-06-25] MEDS: TENORMIN PO SCH ×2 (08:22→21:38)
[2019-06-25] MEDS: VITAMIN D PO SCH (08:22)
[2019-06-25] MEDS: CYMBALTA PO SCH (08:27)
[2019-06-25] MEDS: ZOSYN 3.375 GM in NS 50 ML IV SCH ×3 (10:49→22:45)
[2019-06-25] MEDS: DUONEB (A & A) INH SCH ×3 (11:11→21:25)
--- NOTE | 2019-06-25 14:46 | Diag Imaging Result Doc PS360 ---
EXAM: WRIST COMPLETE LEFT HISTORY: increased pain TECHNIQUE: Left wrist three views COMPARISON: None. FINDINGS: The bones are osteopenic. Long-standing arthritis to the wrist. Deformity to the distal radius and ulna. Mild compaction to the radial fracture. IMPRESSION: Fractures to the distal radius and ulna. Electronically signed by Osito Gomez 06/25/2019 2:43 PM
--- NOTE | 2019-06-25 14:51 | Diag Imaging Result Doc PS360 ---
EXAM: HAND COMPLETE LEFT HISTORY: increased pain TECHNIQUE: Left hand three views COMPARISON: None. FINDINGS: The bones are osteopenic. Long-standing arthritis with joint space narrowing. There are fractures to the distal radius and ulna with mild compaction. IMPRESSION: Fractures to the distal radius and ulna. Electronically signed by Osito Gomez 06/25/2019 2:49 PM
--- NOTE | 2019-06-25 14:57 | Diag Imaging Result Doc PS360 ---
EXAM: CT THORAX W/O CONTRAST HISTORY: hilar mass/ poss. pneumonia TECHNIQUE: CT chest without contrast COMPARISON: 12/13/2015 FINDINGS: There is a small to moderate-sized right pleural effusion measuring 4.5 cm posteriorly and inferiorly with a tiny left pleural effusion. Heart is mildly enlarged. No aortic aneurysm. There is vascular distention. There is mildly prominent mediastinal and hilar lymph nodes bilaterally. There is bibasilar atelectasis and there may be underlying infiltrates as well. No distinct mass. IMPRESSION: 1.Cardiomegaly with pulmonary edema and pleural effusions 2.Basilar atelectasis and possibly underlying infiltrates 3.Mildly prominent mediastinal and hilar lymph nodes This exam was performed using automated exposure control, adjustment of mA or kV according to patient siths.:)ze, and/or use of iterative reconstruction technique. Electronically signed by Osito Gomez 06/25/2019 2:55 PM
[2019-06-25] MEDS ORDERED: LASIX IV ONE (16:00)
--- NOTE | 2019-06-25 16:18 | Diag Imaging Result Doc PS360 ---
EXAM: ELBOW COMPLETE LEFT HISTORY: increased pain TECHNIQUE: Three views COMPARISON: None. FINDINGS: The patient refused to be in the elbow 90 degrees from the lateral view. No fracture. No dislocation. Olecranon bone spur. IMPRESSION: No acute bony injury. Electronically signed by Osito Gomez 06/25/2019 4:16 PM
[2019-06-25] MEDS: VANCOMYCIN 2 GM in NS 500 ML IV SCH (16:30)
--- NOTE | 2019-06-25 17:20 | PROGRESS NOTE ---
DATE: 06/25/2019 HISTORY OF PRESENT ILLNESS: He is a patient of Dr. Jakub Peres. He was admitted early this morning to Dr. Peres. He was short of breath. An 84-year-old, male, with history of dementia, who comes in the emergency room from a alf related to productive cough. His oxygen saturations were 90%. The patient for the most part denied any pain. Chest x-ray showed increased pulmonary vascular congestion. No discrete infiltrates could be made out and felt he might have early pneumonia. PAST MEDICAL HISTORY: Dementia, longstanding stasis dermatosis, diastolic dysfunction, lower extremity edema, benign prostatic hypertrophy, gastroesophageal reflux disease, hypertension, hyperlipidemia, gout, atrial fibrillation with anticoagulation on Coumadin, chronic lower back pain, laryngeal mass status post resection, nephrolithiasis, osteoarthritis, 2 melanoma status post resection, positive axillary nodes. SURGICAL HISTORY: Melanoma resection with laryngeal mass resection. ASSESSMENT/PLAN: He was admitted with: 1. Bronchitis. 2. Possible early pneumonia. 3. Chronic diastolic heart failure. 4. Underlying dementia. 5. Paroxysmal atrial fibrillation, on chronic Coumadin. 6. Benign prostatic hypertrophy. 7. Gastroesophageal reflux disease. 8. Hyperlipidemia. 9. Hypertension. Apparently, he fell today and hurt his left arm. X-rays were done. He had a chest CT done early this morning. He had some cardiomegaly, pulmonary edema, pleural effusions, basilar atelectasis, possibly underlying infiltrates, mildly prominent mediastinal hilar lymph nodes. The x-ray of his wrist showed fractures to the distal radius and ulna in the elbow, no dislocation. There is an olecranon bone spur, but no fracture. His x-ray of his hand, fracture of the distal radius and ulna. The patient is still having confusion delirium. I did go up on his Seroquel. He is on Aricept 10 mg at bedtime, Tenormin 12.5 mg b.i.d., vitamin D3, 1000 units daily, Cymbalta 40 mg a day, Tricor 145 mg at bedtime, Proscar 5 mg a day, Lasix 80 mg a day, Namenda 5 mg p.o. at bedtime, Prilosec 20 mg b.i.d., potassium chloride extended release 20 mEq Mondays, Tuesdays, , and Fridays; Pravachol 20 mg a day, Seroquel, he was getting 25 t.i.d. I increased it to 50 t.i.d.; Flomax 0.4 mg a day, verapamil SR 120 mg every other day. He is on Coumadin 2 mg Tuesdays, , and Saturdays, and 3 mg Sundays, Mondays, Wednesdays, and Fridays; Zosyn 3.375 g IV q.6, Lasix was given 1 time today 80 mg. I started him on vancomycin as one of his preliminary blood cultures came back gram-positive cocci. Urine culture is still pending. I asked Orthopedic to see about his distal radius and ulna fracture. LABORATORY AND DIAGNOSTIC DATA: Review of his lab from this morning: White count 8660, hematocrit 36, platelet count 207,000. Chemistries unremarkable, sodium 141, potassium 3.6, chloride 102, bicarbonate 26, BUN 21, creatinine 1.1. ProBNP 1718. Review of the chest x-ray, he has some cardiomegaly, some pulmonary edema, left hilar prominence could be adenopathy or mass. Portion of this may be due to rotation. A CT scan was suggested this. cc: MD Jakub Rios MD
--- NOTE | 2019-06-25 18:46 | Diag Imaging Result Doc PS360 ---
EXAM: SHOULDER-LEFT HISTORY: increased pain TECHNIQUE: Shoulder three views including an axillary Y-view COMPARISON: None. FINDINGS: No fracture. No dislocation. Prominent joint space narrowing superiorly. Prominent bone spurs to the common clavicular joint. IMPRESSION: Long-standing arthritis accompanied by rotator cuff tear Electronically signed by Osito Gomez 06/25/2019 6:43 PM
--- NOTE | 2019-06-25 19:30 | PROGRESS NOTE ---
DATE: 06/25/2019 SUBJECTIVE: The patient's chart was reviewed. 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 Full evaluation was pursued. Laboratory data was pertinent for a normal white blood cell count, therapeutic INR at 2.43, elevated ProBNP of 1718, and abnormal urinalysis with wzg-kwst-el-count white blood cells and too- khjg-jf-opxqn red blood cells. No significant bacteria was identified. Chest x-ray revealed cardiomegaly with pulmonary edema and a left hilar prominence which could be adenopathy or mass. The patient was admitted to the hospital with an upper respiratory tract infection with probable underlying pneumonia. He was started on Zosyn and vancomycin per senior care facility acquired pneumonia. This morning, patient is somewhat confused, slightly above his baseline. He has pulled his IVs. He continues to have massive lower extremity edema. Overall, patient states he feels reasonably well. Cough is persistent. OBJECTIVE: Temperature max 98.7 degrees, heart rate 85 to 112, respirations 15 to 24, blood pressure 119 to 132/57 to 63.General: Chronically ill appearing, no acute distress. Cardiovascular: Regular rate and rhythm. No significant murmurs, rubs, or gallops. Pulmonary: Rhonchi and wheezing bilaterally. Adequate air movement. Abdomen: Soft, nontender, nondistended. Positive bowel sounds. Extremities: Moves all extremities well. Lower extremity edema 2 to 3+ bilaterally. Dermatologic: A nodule to his right submandibular region. LABORATORY DATA: White blood cell count 8.66, hemoglobin 11.8, hematocrit 36.8, platelet count is 207,000. PT 27.1, INR is 2.43. Sodium 141, potassium 3.6, chloride 102, bicarbonate 26, BUN 21, creatinine 1.1, glucose 105, calcium 8.8. Total bilirubin 0.80, total protein 6.4, albumin 2.7, alkaline phosphatase 66, AST 16, ALT 6. ProBNP 1718. Lipase 12. Urinalysis revealed xqf-qwov-sd- count white blood cells and oxg-krrj-di-count red blood cells. No bacteria present. ASSESSMENT AND PLAN: 1. Upper respiratory tract infection with probable pneumonia. I agree with initiation of Zosyn and vancomycin therapy. Blood cultures have been ordered. We will check a sputum culture. We will encourage incentive spirometry and aspiration precautions. We will continue bronchodilators. 2. Questionable hilar mass versus adenopathy. We will refer patient for CT scan evaluation. Patient does have a history of melanoma. He also has a nodular density to the right submandibular region. Certainly, this could represent metastatic disease. In addition, we will be able to further delineate the degree of pneumonia. We will follow this. 3. Chronic diastolic heart failure with volume overload. Patient's chest x-ray did suggest increasing volume. We will treat patient with IV Lasix today. As described above, he has massive lower extremity edema. We will diurese as able. 4. Dementia. Patient has longstanding disease. As above, his confusion is slightly above baseline. This likely is a consequence of his acute illness as well as not having slept overnight. We will continue supportive care. Should his condition persist, we will have a low threshold for neurologic evaluation. 5. Paroxysmal atrial fibrillation. Patient's EKG upon admission demonstrated atrial fibrillation. We will continue anticoagulation. Heart rate is slightly up. We will continue his current regimen for now. We may need to adjust medications depending on his progress. 6. Reflux disease. We will continue patient on omeprazole therapy. 7. Hyperlipidemia. We will continue patient on pravastatin therapy. 8. Fluid, electrolytes, nutrition. We will monitor electrolytes. Saline lock IV. Cardiac prudent diet. 9. Prophylaxis. Patient will be continued on Coumadin therapy. cc: Jakub Peres MD
[2019-06-25] MEDS: ARICEPT PO SCH (21:38)
[2019-06-25] MEDS: TRICOR PO SCH (21:38)
[2019-06-25] MEDS: PRAVACHOL PO SCH (21:39)
[2019-06-25] MEDS: COUMADIN PO SCH (21:39)
[2019-06-25] MEDS: NAMENDA PO SCH (21:39)
[2019-06-25] MEDS: HALDOL IV PRN (23:28)
[2019-06-25] MEDS: TYLENOL PO PRN (23:33)
[2019-06-26] MEDS: ZOSYN 3.375 GM in NS 50 ML IV SCH ×3 (01:30→15:54)
[2019-06-26] MEDS: DUONEB (A & A) INH SCH ×4 (03:25→21:34)
[2019-06-26] MEDS: HALDOL IV PRN (03:56)
[2019-06-26 07:16] LABS: BASO# 0.01 X1000 (0.0-0.2); BASO% 0.1 % (0.0-0.8); EOS# 0.01 X1000 (0.0-0.7); EOS% 0.1 % (0.0-10.0); HEMATOCRIT 33.2 % (42.0-52.0); HEMOGLOBIN 10.5 g/dL (14.0-18.0); LYMPH# 0.56 X1000 (1.2-3.4); LYMPH% 8.1 % (20.5-51.1); MCH 29.9 PG (27-31); MCHC 31.6 g/dL (33-37); MCV 94.6 FL (81-99); MONO# 1.38 X1000 (0.11-0.59); NEUT# 4.94 X1000 (1.4-6.5); NEUT% 71.7 % (42.2-75.2); PLT 204 X1000 (130-400); RBC 3.51 XMIL (4.7-6.1); RDW 15.4 % (11.5-14.5)
--- NOTE | 2019-06-26 07:16 | ORTHOPAEDICS CONSULTATION ---
DATE: 06/25/2019 CHIEF COMPLAINT: Left wrist pain. CLINICAL HISTORY: The patient is a pleasant, 84-year-old male who was admitted to the hospital early this a.m. with bronchitis or possible early pneumonia as well as chronic diastolic heart failure. The patient has undergone workup and his chest CT did reveal bibasilar atelectasis as well as infiltrates and cardiomegaly with pulmonary edema and pleural effusion. Patient had some confusion earlier this morning. He tried to get to the restroom without staff and fell on the floor. The patient has found on the floor by the staff and was noted to have some left upper arm pain and some swelling. X-rays were obtained which revealed a left distal radial ulnar fracture. Orthopedic consultation was requested. HOME MEDICATIONS: Atenolol 12.5 mg p.o. b.i.d., vitamin D3 1000 units p.o. daily, Aricept 10 mg p.o. daily, duloxetine 40 mg p.o. daily, fenofibrate 145 mg p.o. at bedtime, finasteride 5 mg p.o. daily, Lasix 80 mg p.o. daily, Namenda 5 mg p.o. at bedtime, omeprazole 20 mg p.o. b.i.d., Zofran 4 mg p.o. daily, potassium chloride 20 mEq p.o. daily, pravastatin 20 mg p.o. at bedtime, Seroquel 25 mg p.o. at bedtime, Flomax 0.4 mg p.o. daily, verapamil 120 mg p.o. daily, Coumadin 2 mg Thursday, , and Thursday and 3 mg Thursday, Thursday, Thursday, Thursday. PAST MEDICAL HISTORY: Significant for dementia, longstanding stasis dermatitis, diastolic dysfunction with lower extremity edema, BPH-incurred, hypertension, hyperlipidemia, gout, atrial fibrillation with a anticoagulation with Coumadin, chronic back pain, history of laryngeal mass- status post resection, nephrolithiasis, osteoarthritis, history of melanoma-status post resection. SURGICAL HISTORY: Melanoma resection, resection of laryngeal mass. PHYSICAL EXAMINATION: The patient does have some underlying confusion; however, he appears to be cooperative with the exam. His left upper extremity does have some mild to moderate swelling. Diffuse tenderness to palpation of the distal radius. His compartments are soft. He is able to flex and extend all of his fingers. He has good capillary refill distally. He is grossly neurovascularly intact. He is nontender along the elbow or shoulder. He has good capillary refill distally. Remaining extremities have no significant tenderness to palpation and no acute abnormalities. DIAGNOSTIC DATA: X-rays of the left wrist reveal a left distal radial and ulnar fracture with acceptable alignment. X-ray of the left elbow was negative for fracture or dislocation. IMPRESSION: Left distal radial and ulnar fracture. PLAN: At this point, we will place patient in a sugar-tong splint and attempt nonoperative treatment. The patient has acceptable alignment at this point. Would recommend repeat x-ray in 7 to 10 days. Would recommend converting to a cast once the swelling has improved. cc: MD Jakub Phillip MD
[2019-06-26 07:27] LABS: INR 2.33; PROTIME 26.2 Seconds (11.0-16.0)
[2019-06-26 07:51] LABS: AGAP 12; BUN 16 mg/dL (8-22); CALCIUM 8.4 mg/dL (8.8-10.2); CHLORIDE 103 mmol/L (98-107); COSMO 278; ESTIMATED GFR > 60; GLUCOSE 92 mg/dL (70-104); MAGNESIUM 1.6 mg/dL (1.5-2.7); POTASSIUM 3.2 mmol/L (3.5-5.1); SODIUM 139 mmol/L (136-145); TCO2 24 mmol/L (25-35)
[2019-06-26] MEDS: PRILOSEC PO SCH (08:55)
[2019-06-26] MEDS: KLOR-CON PO SCH (08:55)
[2019-06-26] MEDS: CYMBALTA PO SCH (08:55)
[2019-06-26] MEDS: LASIX PO SCH (08:55)
[2019-06-26] MEDS: SEROQUEL PO SCH ×2 (08:55→13:43)
[2019-06-26] MEDS: TENORMIN PO SCH (08:56)
[2019-06-26] MEDS: PROSCAR PO SCH (08:56)
[2019-06-26] MEDS: VITAMIN D PO SCH (08:56)
[2019-06-26] MEDS: FLOMAX PO SCH (08:56)
[2019-06-26] MEDS ORDERED: CALMOSEPTINE OINTMENT TOP PRN (10:22)
--- NOTE | 2019-06-26 11:09 | ORTHOPAEDICS PROGRESS NOTE ---
DATE: 06/26/2019 SUBJECTIVE: The patient on is 1 day since his fall sustaining a left distal radial and ulna fracture. He has had experienced some confusion and has been tried to unwrap some of the Marco wrap on the distal aspect. The patient's continues with confusion. He also was complaining of some left shoulder pain and x-ray was obtained yesterday and was negative for fracture. PHYSICAL EXAMINATION: He is confused this morning. His sugar-tong splint is overall intact. Some of the Marco wrap is unwrapped distally. He has good capillary refill distally. X-RAYS: X-rays of the left shoulder revealed in. No evidence of occult fracture or dislocation. Patient did have some decreased subacromial space and superior migration of the humeral head suspicious for a chronic rotator cuff tear and some underlying arthritis of the small inferior osteophyte off the humeral head and AC joint. IMPRESSION: 1. Left distal radial and ulna fracture. 2. Left shoulder pain with underlying chronic rotator cuff tear and AC joint and glenohumeral arthritis. PLAN: At this point, the patient will be maintained in sugar-tong splint and given the patient's dementia and confusion secondary to his dementia will consider placing him in a cast tomorrow if his swelling has improved in order to prevent patient removing the splint. cc: MD Jakub Phillip MD MTDD
--- NOTE | 2019-06-26 13:20 | PROGRESS NOTE ---
DATE: 06/26/2019 SUBJECTIVE: Unfortunately, the patient has had a very eventful 24 hours. The patient was seen yesterday morning. At that point, patient had been admitted only for several hours with what appeared to be a pneumonia. The patient was placed on Zosyn and vancomycin therapy. He was noted to have alteration of mental status, although this was felt to be likely secondary to his infection/lack of sleep. CT scan of the chest was performed. CT scan returned with cardiomegaly and pulmonary edema and pleural effusion. Basilar atelectasis and possibly underlying infiltrates. Mildly prominent mediastinal and hilar lymph nodes were noted. Unfortunately, thereafter, the patient became confused and tisha from bed independently. He did not ask for nursing assistance. The patient was found after sustaining a fall. With this fall, the patient injured his left upper extremity. Wrist x-ray was performed revealing fractures of the distal radius and ulna. Dr. Cohen was consulted. Nonoperative management with a sugar-tong splint was recommended. Throughout the evening, the patient continued to have significant mental status changes. Multiple medications were utilized to maintain control. This morning, the patient's mental status has improved considerably. He remains slightly confused, but remembered my name. He was oriented to the fact that he was in the hospital and voiced understanding. He was resting in bed. He currently denies fevers, chills, nausea, or vomiting. He continues to have a cough and congestion. OBJECTIVE: Vital signs: T-max 99.3 degrees, heart rate 74 to 116, respirations 14 to 21, blood pressure 80 to 142 over 50 to 71. General: Elderly, no acute distress. Cardiovascular: Irregularly irregular. No significant murmurs, rubs, or gallops. Pulmonary: Rhonchi bilaterally. Adequate air movement. Abdomen: Soft, nontender, nondistended. Positive bowel sounds. Extremities: The lower extremities with 2 to 3+ edema bilaterally. No clubbing or cyanosis. Left upper extremity is in a splint. Dermatologic: Multiple ecchymoses, as he has pulled multiple IVs. LABORATORY DATA: White blood cell count 6.90, hemoglobin 10.5, hematocrit 35.2, platelet count 204,000. PT 26.2. INR 2.33. Sodium 139, potassium 3.2, chloride 103, bicarb 24, BUN 16, creatinine 1.0, glucose 92, calcium 8.4, magnesium 1.6. ASSESSMENT AND PLAN: 1. Assisted living facility acquired pneumonia. Blood cultures were positive for gram-positive cocci. Sputum culture has not been performed today. For now, we will continue Zosyn and vancomycin therapy. We will encourage incentive spirometry and aspiration precautions. Bronchodilators will be continued. 2. Bacteremia/sepsis, in the setting of significant mental status changes, the diagnosis of sepsis is most appropriate. The patient is being treated with broad-spectrum antibiotics. He has demonstrated no significant cardiovascular compromised with exception of atrial fibrillation with a rapid ventricular response. We will continue broad-spectrum antibiotics as noted. 3. Alteration of mental status. The patient's mental status has not returned to his baseline dementia. This morning, however, it is approaching. We will continue his home medical regimen. He has Haldol if necessary. 4. Chronic diastolic heart failure with volume overload. While a sepsis patient would benefit from aggressive hydration, the patient's volume status remains significantly elevated. In the setting of pulmonary compromise and pleural effusions, and with acceptable hemodynamics, we will continue diuresis. 5. Paroxysmal atrial fibrillation. The patient does appear to be in atrial fibrillation. We will follow patient on telemetry. 6. Reflux disease. We will continue omeprazole therapy. 7. Hyperlipidemia. We will continue patient on pravastatin therapy. 8. Acute left distal radius and ulna fracture and possible rotator cuff tear. The patient is being treated by Dr. Cohen. Sugar-tong splint has been placed. In regards to the shoulder, the question is raised whether this is a new or old diagnosis. We will treat this conservatively. 9. Disposition. At this point, the patient continues to require assisted care in a hospital setting. We will plan discharge home once appropriate. cc: Jakub Peres MD
[2019-06-26] MEDS ORDERED: KLOR-CON PO ONE (16:00)
[2019-06-26] MEDS ORDERED: LASIX IV ONE (16:00)
[2019-06-26] MEDS: VANCOMYCIN 2 GM in NS 500 ML IV SCH (17:02)
[2019-06-26] MEDS: ARICEPT PO SCH (22:32)
[2019-06-26] MEDS: COUMADIN PO SCH (22:32)
[2019-06-26] MEDS: NAMENDA PO SCH (22:32)
[2019-06-27] MEDS: ZOSYN 3.375 GM in NS 50 ML IV SCH ×6 (00:03→21:03)
[2019-06-27] MEDS: PRAVACHOL PO SCH ×2 (02:05→21:04)
[2019-06-27] MEDS: TRICOR PO SCH ×2 (02:06→21:04)
[2019-06-27] MEDS: SEROQUEL PO SCH ×4 (02:06→16:21)
[2019-06-27] MEDS: PRILOSEC PO SCH ×3 (02:06→21:04)
[2019-06-27] MEDS: TENORMIN PO SCH ×3 (02:06→21:04)
[2019-06-27] MEDS: DUONEB (A & A) INH SCH ×4 (03:30→21:30)
--- NOTE | 2019-06-27 07:33 | EKG Report ---
Test Performed on : 06/25/2019 06:14:50 AM Test Reason : NO EKG ORDER FOR MUSE Blood Pressure : / mmHG Vent. Rate : 104 BPM Atrial Rate : 101 BPM P-R Int : 000 ms QRS Dur : 116 ms QT Int : 342 ms P-R-T Axes : 000 -33 091 degrees QTc Int : 449 ms Atrial fibrillation. with rapid ventricular response. Left axis deviation Pulmonary disease pattern Abnormal QRS-T angle, consider primary T wave abnormality Abnormal ECG When compared with ECG of 25-JUN-2019 06:02, (Unconfirmed) No significant change was found Confirmed by [place] ROJAS, Sameer ([id number]) on 06/27/2019 8:25:22 AM
[2019-06-27 07:35] LABS: BASO# 0.02 X1000 (0.0-0.2); BASO% 0.3 % (0.0-0.8); EOS# 0.05 X1000 (0.0-0.7); EOS% 0.6 % (0.0-10.0); HEMATOCRIT 34.6 % (42.0-52.0); HEMOGLOBIN 11.1 g/dL (14.0-18.0); IMM GRAN# 0.03 X1000 (0.0-0.04); IMM GRAN% 0.4 % (0.0-0.5); LYMPH# 0.72 X1000 (1.2-3.4); LYMPH% 9.3 % (20.5-51.1); MCH 30.6 PG (27-31); MCHC 32.1 g/dL (33-37); MCV 95.3 FL (81-99); MONO# 1.28 X1000 (0.11-0.59); MONO% 16.5 % (1.7-9.3); MPV 9.9 FL (7.4-10.4); NEUT# 5.65 X1000 (1.4-6.5); NEUT% 72.9 % (42.2-75.2); PLT 214 X1000 (130-400); RBC 3.63 XMIL (4.7-6.1); RDW 15.4 % (11.5-14.5); WBC 7.75 X1000 (4.8-10.8)
[2019-06-27 07:57] LABS: AGAP 2; BUN 16 mg/dL (8-22); CALCIUM 8.5 mg/dL (8.8-10.2); CHLORIDE 101 mmol/L (98-107); COSMO 280; ESTIMATED GFR > 60; GLUCOSE 94 mg/dL (70-104); POTASSIUM 3.6 mmol/L (3.5-5.1); SODIUM 140 mmol/L (136-145); TCO2 37 mmol/L (25-35)
[2019-06-27 08:14] LABS: INR 2.87; PROTIME 30.9 Seconds (11.0-16.0)
[2019-06-27] MEDS: VITAMIN D PO SCH (10:21)
[2019-06-27] MEDS: ISOPTIN SR PO SCH ×2 (10:21→22:06)
[2019-06-27] MEDS: KLOR-CON PO SCH (10:21)
[2019-06-27] MEDS: CYMBALTA PO SCH (10:22)
[2019-06-27] MEDS: LASIX PO SCH (10:22)
[2019-06-27] MEDS: FLOMAX PO SCH (10:22)
[2019-06-27] MEDS: PROSCAR PO SCH (10:23)
--- NOTE | 2019-06-27 16:47 | ORTHOPAEDICS PROGRESS NOTE ---
DATE: 06/27/2019 SUBJECTIVE: The patient is day 2 since his fall sustaining a left distal radius and ulnar fracture. He has been experiencing some confusion and had previously removed his sugar-tong splint. We were going to place a cast on the patient today due to his confusion, but he still has significant swelling. He is somewhat confused today, but does answer questions appropriately. PHYSICAL EXAM: The sugar-tong splint to his left upper extremity is wrapped in an Marco wrap and Kerlix. It is still intact at this time. His left hand is significantly swollen, as well as his left distal wrist. He has not had any skin breakdown under his splint. Cap refill is less than 2 seconds and sensation is intact distally. X-RAYS: There is no new imaging to report today. IMPRESSION: Left distal radius and ulnar fracture. PLAN: At this point, I discussed with Dr. Cohen, and we are going to leave a splint in place due to patient's amount of swelling. Concern was if we placed a cast today, due to patient's swelling this would be too constricting on him. I took down the preexisting sugar-tong splint and padded his arm well, and replaced a sugar-tong splint with an Marco wrap and a Coban to try to hold it more in place. I also had them place a sling on him to see if this would keep him from trying to remove the splint. We plan on in a day or 2 once the swelling has gone down, placing a cast at that time. His granddaughter was at bedside at this time, and all questions were answered. Dictated by YAMILE Palmer for Cuong Cohen MD cc: MD Jakub Phillip MD
[2019-06-27] MEDS: VANCOMYCIN 2 GM in NS 500 ML IV SCH (17:44)
[2019-06-27] MEDS: ARICEPT PO SCH (21:03)
[2019-06-27] MEDS: COUMADIN PO SCH (21:05)
--- NOTE | 2019-06-27 21:44 | PROGRESS NOTE ---
DATE: 06/27/2019 SUBJECTIVE: Upon my arrival this morning, patient was noted to have considerable confusion. With direction, he did become more alert to his situation. He was, however, unable to tell me my name. The patient was treated supportively throughout the day. This evening upon my arrival, patient was alert and oriented to person, place and situation. He was able to remember my name. Over the course of the day, patient ate reasonably well. There has been no evidence of fevers, chills, nausea, vomiting, shortness of breath or chest discomfort. OBJECTIVE: Temperature 99.4 degrees, heart rate 61 to 141, respirations 16 to 18, blood pressure 117 to 143 over 56 to 87.General: Elderly no acute distress. Cardiovascular: Regular rate and rhythm. No significant murmurs, rubs, or gallops. Pulmonary: Occasional rhonchi bilaterally, adequate air movement. Abdomen: Soft, nontender, nondistended. Positive bowel sounds. Extremities: Moves all extremities well. No significant clubbing or cyanosis. One to 2+ lower extremity edema bilaterally. Dermatologic: Evaluation reveals venous stasis changes to bilateral lower extremities. LABORATORY DATA: White blood cell count 7.75, hemoglobin 11.1, hematocrit 34.6, platelet count 214,000. PT 30.9, INR is 2.87, sodium 140, potassium 3.6, chloride 101, bicarb 37, BUN 16, creatinine 1.0, glucose 94, calcium 8.5. Blood culture revealed Strep sanguis. ASSESSMENT AND PLAN: 1. Assisted living facility-acquired pneumonia-blood culture returned positive for Strep sanguis. At this point, likely source is pulmonary. We will continue patient on Zosyn therapy. We will discontinue vancomycin. We will encourage incentive spirometry and aspiration precautions. We will consult Dr. Hickey for further evaluation and management. 2. Bacteremia/sepsis-as above, patient's blood culture returned positive for Strep sanguis. We will treat patient with Zosyn therapy for now as I cannot fully rule out aspiration as well. As above, we will consult Dr. Hickey for further evaluation and management. 3. Alteration of mental status-patient's mental status continues to wax and wane. Patient has required increasing antipsychotics to maintain adequate control. We will attempt to decrease back to his home medical regimen. We will plan to check a CT scan of the head to rule out additional pathology. 4. Chronic diastolic heart failure with volume overload-the patient's volume appears to be approaching euvolemia. We will continue his current medical regimen. 5. Paroxysmal atrial fibrillation-we will follow patient on telemetry. 6. Reflux disease-we will continue patient on omeprazole therapy. 7. Hyperlipidemia-we will continue pravastatin therapy. 8. Acute left distal radius and ulna fracture and possible rotator cuff tear-this was a consequence of a fall. I appreciate Dr. Cohen's consultation. 9. Disposition-at this point, patient continues to require jail care in a hospital setting. We will plan discharge home or to rehabilitation once appropriate. cc: Jakub Peres MD
[2019-06-28] MEDS: HALDOL IV PRN (02:45)
[2019-06-28] MEDS ORDERED: ISOPTIN PO ONE (02:51)
[2019-06-28] MEDS: DUONEB (A & A) INH SCH ×4 (03:30→23:06)
[2019-06-28] MEDS: ZOSYN 3.375 GM in NS 50 ML IV SCH (04:16)
[2019-06-28 07:44] LABS: INR 3.53; PROTIME 36.4 Seconds (11.0-16.0)
--- NOTE | 2019-06-28 08:12 | Diag Imaging Result Doc PS360 ---
EXAM: CT HEAD W/O CONTRAST HISTORY: encephalopathy TECHNIQUE: CT head without contrast COMPARISON: 07/01/2016 FINDINGS: Motion degrades image quality. No parenchymal hemorrhage. No epidural or subdural hematoma. No subarachnoid hemorrhage. There are chronic microvascular ischemic changes. No mass identified on this noncontrasted exam. No hydrocephalus. Near complete opacification of the right maxillary sinus. There is prominent mucus in the ethmoid, sphenoid, and left maxillary sinuses. IMPRESSION: 1.No hemorrhage 2.Chronic microvascular ischemic changes 3.Sinusitis This exam was performed using automated exposure control, adjustment of mA or kV according to patient size, and/or use of iterative reconstruction technique. Electronically signed by Osito Gomez 06/28/2019 8:10 AM
[2019-06-28] MEDS ORDERED: CELEXA PO SCH (09:00)
[2019-06-28] MEDS: TENORMIN PO SCH ×2 (09:07→21:19)
[2019-06-28] MEDS: KLOR-CON PO SCH (09:09)
[2019-06-28] MEDS: FLOMAX PO SCH (09:09)
[2019-06-28] MEDS: PROSCAR PO SCH (09:09)
[2019-06-28] MEDS: PRILOSEC PO SCH ×2 (09:09→21:20)
[2019-06-28] MEDS: ISOPTIN SR PO SCH ×2 (09:10→21:20)
[2019-06-28] MEDS: LASIX PO SCH (09:10)
[2019-06-28] MEDS: CYMBALTA PO SCH (09:10)
--- NOTE | 2019-06-28 09:51 | Diag Imaging Result Doc PS360 ---
EXAM: CHEST-2 VIEWS 06/28/2019 HISTORY: hypoxia TECHNIQUE: PA and lateral chest COMMENT: There is worsening alveolar opacification of the left lower lobe and to a lesser extent the right lower lobe compared to 06/25/2019. There continues to be cardiomegaly. IMPRESSION: Worsening pulmonary edema and/or pneumonia. Electronically signed by Ramana Wetzel 06/28/2019 9:49 AM
[2019-06-28] MEDS: ROCEPHIN 2 GM in NS 50 ML IV SCH ×2 (10:29→21:19)
--- NOTE | 2019-06-28 14:03 | INFECTIOUS DISEASE CONSULT REP ---
DATE: 06/28/2019 CONCLUSION: The patient has a Streptococcus sanguinous bacteremia. The origin of this may be from bibasilar pneumonia. Also, I think it is possible the patient has endocarditis. RECOMMENDATIONS: I have discontinued Zosyn and put the patient on Rocephin 2 g IV every 12 hours. I have ordered a procalcitonin level to see if that can help to see if the patient has pneumonia or not, and finally, I have ordered an echocardiogram to look for the possibility of endocarditis. DISCUSSION: The patient is unable provide a history. The information I have is from a review of the computer information. The patient apparently lives in a [facility] and he started coughing and he became dyspneic and he was sent to the hospital where he subsequently has been admitted. The patient fell also in the [facility] and he had a left radial fracture from the fall. PAST MEDICAL HISTORY: Positive for dementia, stasis dermatitis, diastolic dysfunction with lower extremity edema, benign prostatic hypertrophy, gastroesophageal reflux disease, hypertension, hyperlipidemia, gout, atrial fibrillation, chronic back pain, history of a laryngeal mass which was resected, nephrolithiasis, osteoarthritis, 2 melanomas which have been resected. PAST SURGICAL HISTORY: Positive for resection of a large laryngeal mass and removal of 2 melanomas. SOCIAL HISTORY: The patient stopped smoking in 1971. He does not drink alcoholic beverages or abuse drugs. 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 He lives in a [facility]. ALLERGIES: His chart lists allergies to sulfa and codeine. HOME MEDICATIONS: Include the following: Atenolol, Aricept, duloxetine,Tricor, Proscar, Lasix, Namenda, omeprazole, Zofran, Seroquel, Flomax, verapamil and Coumadin. LABORATORY STUDIES: the patient's CBC shows a white count of 7750, hemoglobin 11.1, and platelet count 214,000. Patient's protime is 30.9 with an INR of 2.87. Creatinine is 1.0. GFR is greater than 60. Liver function studies are normal. Urinalysis showed white cells but no bacteria. Swab for influenza was negative. IMAGING: The patient's CT scan of the chest shows cardiomegaly, pulmonary edema, bibasilar atelectasis and there may be underlying infiltrates also, and prominent mediastinal and hilar lymph nodes. PHYSICAL EXAMINATION: Vital Signs: Temperature is 99.2 degrees, pulse 117, respirations 18, blood pressure 140/76. The patient weighs 257 pounds. General: This is an obese, elderly male. He is in no acute distress. Head/eyes/ears/nose/throat: No drainage noted from the nose or ears. I did not see any white patches on his tongue. Neck: No meningismus. Lungs: Clear to auscultation. Cardiovascular: Heart rate is irregular. Abdomen: Soft and nontender. Extremities: Both legs are edematous and they both have scaling of the skin. Neurologic: The patient is lethargic. He did not answer my questions. He did not move his extremities when I asked him to do it. Bones, joints, muscles: The patient has left arm in a large splint. Integument: No rash. Thank you for the consultation. cc: MD Jakub Loyd MD
--- NOTE | 2019-06-28 17:45 | ECHO REPORT ---
ORDER DATE: 06/28/2019 INDICATION: Shortness of breath, atrial fibrillation. M-MODE MEASUREMENTS: Left ventricle end diastole: 4.4. Left ventricle end systole: 3.1. Posterior wall: 1.3. Interventricular septum: 1.3. Left atrium: 3.8. Aortic diameter: 3.7. SUMMARY OF 2-DIMENSIONAL IMAGIN. The study is difficult. 2. Global left ventricular systolic function appears to be normal with an ejection fraction of 65% to 70%. 3. The left atrium appears to be moderately enlarged. 4. The mitral valve shows a mild degree of prolapse with a mild to moderate degree of regurgitation. 5. The patient is in atrial fibrillation. Diastolic function cannot be evaluated. 6. The aortic valve opens normally. Color flow mapping indicates a mild degree of regurgitation. 7. The tricuspid valve also opens normally. Color flow mapping indicates a mild degree of regurgitation. Pulmonary pressure appears to be within normal limits, estimated at 26 mmHg. 8. The pulmonic valve appears to be grossly normal. Color flow mapping unremarkable. 9. The right ventricle is not dilated. 10.The right atrium is mildly enlarged. 11.There is no pericardial effusion, no mass, and no thrombus. 12.The inferior vena cava appears to be at the upper limits of normal. Clinical correlation recommended. cc: MD Declan Montgomery MD Scott A. Matthews, MD
[2019-06-28] MEDS: ARICEPT PO SCH (21:18)
[2019-06-28] MEDS: COUMADIN PO SCH (21:18)
[2019-06-28] MEDS: TRICOR PO SCH (21:18)
[2019-06-28] MEDS: PRAVACHOL PO SCH (21:19)
[2019-06-28] MEDS: SEROQUEL PO SCH (22:20)
--- NOTE | 2019-06-29 01:24 | PROGRESS NOTE ---
DATE: 06/28/2019 SUBJECTIVE: Upon my arrival this morning, the patient was resting in bed. He was easily arousable. The patient states he felt reasonably well. With reviewing notes, the patient did experience agitation overnight, requiring a dose of IV Haldol. Throughout the day today the patient remained somnolent. He was unable to participate with physical therapy. This evening the patient remains somnolent but arousable. Upon questioning, the patient states he feels well and denies shortness of breath, chest pains, fevers or chills. OBJECTIVE: T-max 99.2 degrees, heart rate 92 to 136, respirations 16 to 20. Blood pressure 118 to 142 over 55 to 104.General: Chronically ill appearing, no acute distress. Cardiovascular: Irregularly irregular. Slightly tachycardic. No significant murmurs, rubs or gallops. Pulmonary: Occasional rhonchi bilaterally. Adequate air movement. Abdomen is soft, nontender, nondistended. Positive bowel sounds. Extremities: Moves all extremities well. No significant clubbing or cyanosis of the lower extremities. Edema 1+ bilaterally. Right upper extremity with a large ecchymosis and swelling. Left upper extremity with a forearm and wrist splint. Dermatologic evaluation reveals multiple ecchymoses. LABORATORY DATA: INR 3.53. ASSESSMENT AND PLAN: 1. Assisted living-acquired pneumonia with associated bacteremia/sepsis: I appreciate Dr. Hickey' consultation. Blood cultures returned positive for Streptococcus sanguis. Echocardiogram does not reveal any evidence of vegetative disease. Antibiotics were transitioned to Rocephin therapy. We will continue to encourage pulmonary toilet and aspiration precautions. The patient likely will require intravenous antibiotics at discharge. 2. Alteration of mental status: The patient's mental status has improved, although not back to baseline. I suspect this is a consequence of his acute illness. We will continue supportive care. 3. Chronic diastolic heart failure with volume overload: Chest x-ray today suggests more fluid to be present. Examination of the lower extremities suggests improvement. We will follow this. 4. Paroxysmal atrial fibrillation: Overnight the patient experienced an episode of rapid ventricular response. Medications were adjusted. For now, we will follow the patient on telemetry. We will continue his home regimen. 5. Reflux disease: We will continue the patient on omeprazole therapy. 6. Hyperlipidemia: We will continue the patient on pravastatin. 7. Acute left distal radius and ulna fracture and possible rotator cuff tear: This was a consequence of a fall. I appreciate Dr. Cohen's consultation. A splint is present. 8. Disposition: At this point the patient continues to require [facility] care in the hospital setting. We will plan discharge home once appropriate. cc: Jakub Peres MD
[2019-06-29] MEDS: DUONEB (A & A) INH SCH ×4 (03:31→21:44)
[2019-06-29 07:31] LABS: BASO# 0.02 X1000 (0.0-0.2); BASO% 0.3 % (0.0-0.8); EOS# 0.33 X1000 (0.0-0.7); EOS% 4.3 % (0.0-10.0); HEMATOCRIT 34.7 % (42.0-52.0); HEMOGLOBIN 11.2 g/dL (14.0-18.0); IMM GRAN# 0.02 X1000 (0.0-0.04); IMM GRAN% 0.3 % (0.0-0.5); LYMPH# 0.74 X1000 (1.2-3.4); LYMPH% 9.6 % (20.5-51.1); MCH 30.7 PG (27-31); MCHC 32.3 g/dL (33-37); MCV 95.1 FL (81-99); MONO# 0.85 X1000 (0.11-0.59); MPV 9.8 FL (7.4-10.4); NEUT# 5.74 X1000 (1.4-6.5); NEUT% 74.5 % (42.2-75.2); PLT 251 X1000 (130-400); RBC 3.65 XMIL (4.7-6.1); RDW 15.4 % (11.5-14.5)
[2019-06-29 07:47] LABS: INR 4.59
[2019-06-29 07:52] LABS: AGAP 10; ALB/GLOB RATIO 0.6; ALBUMIN 2.2 g/dL (3.5-5.0); ALKALINE PHOSPHATASE 43 U/L (32-122); BUN 16 mg/dL (8-22); CALCIUM 8.2 mg/dL (8.8-10.2); CHLORIDE 100 mmol/L (98-107); COSMO 282; CREATININE 0.7 mg/dL (0.7-1.2); ESTIMATED GFR > 60; GLUCOSE 97 mg/dL (70-104); GOT 26 U/L (10-34); GPT 14 U/L (10-44); POTASSIUM 3.3 mmol/L (3.5-5.1); SODIUM 141 mmol/L (136-145); TCO2 31 mmol/L (25-35); TOTAL BILIRUBIN 0.63 mg/dL (0.20-1.00); TOTAL PROTEIN 5.6 g/dL (6.3-8.3)
[2019-06-29] MEDS: ISOPTIN SR PO SCH ×2 (10:12→22:55)
[2019-06-29] MEDS: FLOMAX PO SCH (10:12)
[2019-06-29] MEDS: PROSCAR PO SCH (10:12)
[2019-06-29] MEDS: ROCEPHIN 2 GM in NS 50 ML IV SCH ×2 (10:12→22:56)
[2019-06-29] MEDS: LASIX PO SCH (10:13)
[2019-06-29] MEDS: CYMBALTA PO SCH (10:13)
[2019-06-29] MEDS: PRILOSEC PO SCH ×2 (10:13→22:55)
[2019-06-29] MEDS: TENORMIN PO SCH ×2 (10:13→22:56)
[2019-06-29] MEDS: KLOR-CON PO SCH (10:13)
--- NOTE | 2019-06-29 13:55 | INFECTIOUS DISEASE PROGRESS NO ---
DATE: 06/29/2019 PRESENT ILLNESS: Mr. Mac is being treated for a Streptococcus sanguinis bacteremia. There is also the possibility of pneumonia. MEDICATIONS: He is receiving Rocephin 2 g IV every 12 hours. PHYSICAL EXAMINATION: Vital signs: Temperature is 98.4, pulse rate 126, respiratory rate 16, blood pressure 122/60, O2 saturation is 100% on 3 L nasal cannula. General: This is an elderly, obese, somewhat confused gentleman. He is lying in the bed currently in no acute distress. HEENT: Atraumatic, normocephalic. Oral mucous membranes are pink and moist. Conjunctivae are pink. Neck: Supple. Trachea is midline. Cardiovascular: Irregularly irregular, with atrial fibrillation on the monitor. Respiratory: Lung sounds are clear in the upper lobes with some mild expiratory wheezes in the mid and bases. No work of breathing is noted. Abdomen: Soft, obese, and nontender. Bowel sounds are active. Neurologic: He is awake, alert, and confused. He will answer some questions appropriately and follow commands. There is an Marco wrap splint to the left upper extremity as well as a sling. LABORATORY AND X-RAY: Today, his white count is 7.7, hemoglobin 11.2, platelet count 251,000. Creatinine is 0.7, estimated GFR is greater than 60, total bilirubin is 0.63, AST 26, ALT 14, alkaline phosphatase 43. A sputum culture shows no bacteria on the Gram stain and is preliminary. Urine culture showed mixed unique. Blood culture showed a Streptococcus sanguinis. Echocardiogram done yesterday shows no pericardial effusion, mass, or thrombus. ASSESSMENT AND PLAN: Mr. Mac is being treated for a Streptococcus bacteremia using Rocephin, which we will continue at this time. We will recheck blood cultures in the morning in order to attempt to get a sterile set. There is a procalcitonin, which is pending, to help verify the presence of pneumonia. The echocardiogram shows no sign of endocarditis. These plans have been discussed with and recommended by Dr. Hickey. COMORBIDITIES: Include that he is elderly with dementia, congestive heart failure, gastroesophageal reflux disease, atrial fibrillation, and gout. Dictated by YAMILE Art for Declan Hickey MD cc: MD Jakub Loyd MD MTDD
--- NOTE | 2019-06-29 15:58 | PROGRESS NOTE ---
DATE: 06/29/2019 SUBJECTIVE: Upon arrival this morning, patient was more alert. He was resting in bed. Throughout the day today, he has demonstrated some improvement. He worked with physical therapy on the side of the bed. This evening, he is still in bed, but even more alert. He is alert to person, place, and situation. He then, however, told a tangential story which likely was untrue. Patient denies current fevers, chills, nausea, vomiting, shortness of breath, or chest discomfort. He complains of left upper extremity pain. OBJECTIVE: Vital signs: T-max 98.8 degrees, heart rate 96 to 126, respirations 16 to 17, blood pressure 106 to 122 over 43 to 79. General: Elderly, no acute distress. Cardiovascular: Irregularly irregular. No significant murmurs, rubs, or gallops. Pulmonary: Minimal crackles at bilateral bases. Adequate air movement. Abdomen: Soft, nontender, nondistended. Positive bowel sounds. Extremities: Moves all extremities well with the exception of his left upper extremity. No significant clubbing or cyanosis. Trace lower extremity edema bilaterally. Dermatologic: Evaluation reveals hyperkeratosis to bilateral lower extremities and multiple ecchymoses. LABORATORY DATA: White blood cell count 7.70, hemoglobin 11.2, hematocrit 34.7, platelet count 251,000. PT 45.0, INR is 4.59. Sodium 141, potassium 3.3, chloride 100, bicarb 31, BUN 16, creatinine 0.7, glucose 97, calcium 8.2, total bilirubin 0.63, total protein 5.6, albumin 2.2, alkaline phosphatase 43, AST 26, ALT 14. ASSESSMENT AND PLAN: 1. Assisted living-acquired pneumonia with associated bacteremia/sepsis - Blood cultures returned positive for Streptococcus sanguis. Procalcitonin level returned elevated. Echocardiogram suggested no evidence of vegetations. The patient currently is being treated with Rocephin therapy per Dr. Hickey. I appreciate his consultation. We will continue pulmonary toilet and aspiration precautions. 2. Alteration of mental status - Patient has baseline dementia. His mental status is approaching his baseline. We will continue supportive care. 3. Chronic diastolic heart failure with volume overload - On examination, he has decreasing lower extremity edema. We will recheck a chest x-ray in the a.m. We will hold off on more aggressive diuresis at present time. 4. Paroxysmal atrial fibrillation - The patient's rate at times has been significantly elevated. Medications have been adjusted. We will continue to follow patient on telemetry and adjust as necessary. 5. Reflux disease - We will continue patient on omeprazole therapy. 6. Hyperlipidemia - We will continue patient on pravastatin therapy. 7. Acute left distal radius and ulna fracture and possible rotator cuff tear - This was a consequence of a fall during his confused state. I appreciate Dr. Cohen's consultation. Splint is present. 8. Supratherapeutic INR - We will hold further doses of Coumadin. We will continue to follow serial PT/INR. 9. Disposition. At this point, patient continues to require [facility]ci care in a hospital setting. We will plan discharge to halfway once appropriate. cc: Jakub Peres MD
[2019-06-29] MEDS: PRAVACHOL PO SCH (22:54)
[2019-06-29] MEDS: SEROQUEL PO SCH (22:55)
[2019-06-29] MEDS: ARICEPT PO SCH (22:56)
[2019-06-29] MEDS: TRICOR PO SCH (22:56)
[2019-06-30] MEDS: DUONEB (A & A) INH SCH ×2 (03:49→22:30)
--- NOTE | 2019-06-30 06:49 | Diag Imaging Result Doc PS360 ---
EXAM: CHEST-PORTABLE HISTORY: dyspnea TECHNIQUE: Single view COMPARISON: 06/28/2019 FINDINGS: The lungs are well expanded. No cardiomegaly. There are bilateral infiltrates in the mid and lower lungs. These are less prominent than on the prior study. Small pleural effusions. IMPRESSION: Interval improvement Electronically signed by Osito Gomez 06/30/2019 6:47 AM
[2019-06-30 08:02] LABS: INR 5.32; PROTIME 50.7 Seconds (11.0-16.0)
[2019-06-30 08:12] LABS: AGAP 10; BUN 17 mg/dL (8-22); CALCIUM 8.4 mg/dL (8.8-10.2); CHLORIDE 100 mmol/L (98-107); COSMO 283; CREATININE 0.9 mg/dL (0.7-1.2); ESTIMATED GFR > 60; GLUCOSE 96 mg/dL (70-104); SODIUM 141 mmol/L (136-145); TCO2 31 mmol/L (25-35)
[2019-06-30] MEDS: FLOMAX PO SCH (09:32)
[2019-06-30] MEDS: CYMBALTA PO SCH (09:32)
[2019-06-30] MEDS: ISOPTIN SR PO SCH ×2 (09:32→21:06)
[2019-06-30] MEDS: KLOR-CON PO SCH (09:33)
[2019-06-30] MEDS: PROSCAR PO SCH (09:33)
[2019-06-30] MEDS: LASIX PO SCH (09:33)
[2019-06-30] MEDS: PRILOSEC PO SCH ×2 (09:33→21:04)
[2019-06-30] MEDS: ROCEPHIN 2 GM in NS 50 ML IV SCH ×2 (09:34→21:05)
[2019-06-30] MEDS: TENORMIN PO SCH ×2 (09:34→21:04)
[2019-06-30] MEDS ORDERED: KLOR-CON PO ONE (14:57)
--- NOTE | 2019-06-30 18:39 | Extremity Venous Study ---
PROCEDURE NAME: Venous U/S Right Arm - 06/29/2019 REQUESTING PHYSICIAN: Dr. Jakub Peres. BOARD STACKER: Azar. INDICATIONS: Edema and IV in right arm. EQUIPMENT: [employer] Vivid E9 ultrasound system a 9 L-D transducer. FINDINGS: Images of the right upper extremity venous systems were obtained with comparison shot to the left subclavian vein. Doppler was used to evaluate veins for spontaneity, phasicity, respiratory excursion, and digital augmentation. RESULTS: Normal venous compression. Normal venous flow. No obvious superficial or deep venous thrombosis noted. INTERPRETATION: Essentially normal right upper extremity venous study. cc: MD Jakub Sanchez MD
[2019-06-30] MEDS: TRICOR PO SCH (21:04)
[2019-06-30] MEDS: ARICEPT PO SCH (21:04)
[2019-06-30] MEDS: SEROQUEL PO SCH (21:04)
[2019-06-30] MEDS: PRAVACHOL PO SCH (21:04)
--- NOTE | 2019-06-30 22:22 | PROGRESS NOTE ---
DATE: 06/30/2019 SUBJECTIVE: Upon my arrival this morning, the patient was sitting upright in bed. He was alert to person. He was able to tell me my name. He denied significant problems overnight with exception of some pain to his left upper extremity. Throughout the day, the patient has demonstrated the further improvement. Patient sat in the chair for several hours. This evening, upon my arrival, the patient was back in bed. He was complaining that his roommate was of being quite loud. He denied fevers, chills, nausea, vomiting, shortness of breath, or chest discomfort. OBJECTIVE: Vital signs: T-max 98.5 degrees, heart rate, 78 to 103, respirations 16 to 23, blood pressure 99 to 153 over 46 to 98. General: Elderly. No acute distress. Cardiovascular: Irregularly irregular. No significant murmurs, rubs, or gallops. Pulmonary: Crackles at bilateral bases. Abdomen: Soft, nontender, nondistended. Positive bowel sounds. Extremities: Moves all extremities well. No significant clubbing, cyanosis, or edema. Dermatologic: Evaluation reveals no evidence of rash. LABORATORY DATA: PTT is 50.7, INR is 5.32. Sodium 141, potassium 3.0, chloride 100, bicarb 31, BUN 17, creatinine 0.9, glucose 96, calcium 8.4. Chest x-ray revealed interval improvement. ASSESSMENT AND PLAN: 1. Assisted living acquired pneumonia with associated bacteremia/sepsis - Blood cultures are positive for Streptococcus sanguis. Prolactin level returned elevated. We will continue patient on Rocephin per Dr. Hickey. Overall, clinically, the patient is improving. We will continue total pulmonary toilet and aspiration precautions. 2. Alteration of mental status - The patient has baseline dementia, but his delirium has been significant with his acute illness. The patient's mentation is approaching baseline. We will continue supportive care. 3. Chronic diastolic heart failure with volume overload - The patient's lower extremity edema has decreased considerably while hospitalized. Chest x-ray has demonstrated improvement as well. We will continue to follow. 4. Paroxysmal atrial fibrillation - The patient remained in atrial fibrillation, at times with a rapid ventricular rate. We will continue his current medical regimen. We will continue to monitor patient on telemetry. 5. Reflux disease - The patient is treated with omeprazole therapy. Symptoms are controlled. 6. Hyperlipidemia - We will continue patient on pravastatin therapy. 7. Acute left distal radius and ulna fracture and possible rotator cuff tear - This was a consequence of a fall while hospitalized. I appreciate Dr. Cohen's consultation. We will continue splinting per his recommendation. 8. Supratherapeutic INR - We will continue to hold Coumadin therapy. 9. Disposition - At this point, patient continues to require half-way care in a hospital setting. We will plan discharge home once appropriate. cc: Jakub Peres MD
[2019-07-01] MEDS: DUONEB (A & A) INH SCH ×4 (03:20→23:40)
[2019-07-01] MEDS: ROCEPHIN 2 GM in NS 50 ML IV SCH ×2 (09:18→20:13)
[2019-07-01] MEDS: LASIX PO SCH (09:19)
[2019-07-01] MEDS: CYMBALTA PO SCH (09:19)
[2019-07-01] MEDS: FLOMAX PO SCH (09:19)
[2019-07-01] MEDS: ISOPTIN SR PO SCH ×2 (09:19→20:14)
[2019-07-01] MEDS: PROSCAR PO SCH (09:19)
[2019-07-01] MEDS: PRILOSEC PO SCH ×2 (09:19→20:14)
[2019-07-01] MEDS: TENORMIN PO SCH ×2 (09:19→20:14)
[2019-07-01] MEDS: KLOR-CON PO SCH (09:20)
--- NOTE | 2019-07-01 19:01 | INFECTIOUS DISEASE PROGRESS NO ---
DATE: 07/01/2019 PRESENT ILLNESS: Mr. Mac has a Strep sanguinis bacteremia and is also being treated for pneumonia. MEDICATIONS: He is receiving Rocephin 2 g IV every 12 hours. PHYSICAL EXAMINATION: Vital Signs: Temperature is 98.1, pulse rate 81, respiratory rate 22, blood pressure 124/55, O2 saturation 100% on room air. General: This is a chronically-ill- appearing, elderly gentleman. He is lying in bed, currently in no acute distress. HEENT: Atraumatic, normocephalic. Oral mucous membranes are pink and moist. Conjunctivae are pink. Neck: Supple. Trachea is midline. Respiratory: Lung sounds have bilateral expiratory wheezes. No rales or rhonchi noted. There is no work of breathing. Cardiovascular: Irregularly irregular with atrial fibrillation on the monitor. Abdomen: Soft, obese, nontender. Bowel sounds are active. Neurologic: He is drowsy and lethargic but arousable, and monosyllabic verbalizations. Integumentary: Skin is warm and dry. There is an Marco wrap splint in place to the left upper extremity with a sling. LABORATORY AND X-RAY: None available today; however, yesterday his creatinine was 0.9 with an estimated GFR of greater than 60. His blood cultures previously grew Strep sanguinis. There is a set of blood cultures that are pending that were drawn yesterday. No imaging reports today; however yesterday his chest x-ray showed interval improvement with bilateral infiltrates in the mid and lower lungs that are less prominent. ASSESSMENT AND PLAN: Mr. Mac is being treated for pneumonia and a strep bacteremia. He is receiving Rocephin, which we will continue at this time. We are waiting a sterile set of blood cultures which will indicate the first day of treatment. He will need 2 weeks of treatment for the bacteremia. These plans have been discussed with and recommended by Dr. Hickey. COMORBIDITIES: For Mr. Mac, include that he is an elderly, assisted living patient with congestive heart failure, gastroesophageal reflux disease, atrial fibrillation, and recent left radial and ulna fracture with a possible rotator cuff tear. Dictated by YAMILE Art for Declan Hickey MD cc: MD Jakub Loyd MD MTDD
[2019-07-01] MEDS: PRAVACHOL PO SCH (20:13)
[2019-07-01] MEDS: ARICEPT PO SCH (20:13)
[2019-07-01] MEDS: SEROQUEL PO SCH (20:14)
[2019-07-01] MEDS: TRICOR PO SCH (20:14)
--- NOTE | 2019-07-01 20:29 | PROGRESS NOTE ---
DATE: 07/01/2019 SUBJECTIVE: Upon my arrival this morning, patient is sitting upright in bed. Overall, patient states he continues to improve. His pain in his left upper extremity is controlled. He continues to have confusion, although approaching his baseline. He denies fevers, chills, nausea, vomiting, shortness of breath, or chest discomfort. This afternoon, patient is sitting upright in a chair. He notes continued improvement today. OBJECTIVE: T-max 98.1, heart rate 75 to 112, respirations 18 to 22, blood pressure 99 to 125 over 46 to 58.General: Elderly. No acute distress. Cardiovascular: Irregularly irregular. No significant murmurs, rubs, or gallops. Pulmonary: Occasional crackles at the bases. Adequate air movement. Abdomen: Soft, nontender, nondistended. Positive bowel sounds. Extremities: Moves all extremities well with exception of his left upper extremity. No significant clubbing or cyanosis. Patient does have venous stasis changes to bilateral lower extremities and trace lower extremity edema. Musculoskeletal: Reveals a left upper extremity splint. Dermatologic: Evaluation reveals venous stasis changes as noted. LABORATORY DATA: None. ASSESSMENT AND PLAN: 1. Assisted living-acquired pneumonia with associated bacteremia/sepsis-blood cultures grew Streptococcus sanguis. Prolactin level was noted to be elevated. The patient is currently being treated with Rocephin therapy per Dr. Hickey. Surveillance cultures are pending. Overall, patient is improving clinically. I anticipate on Thursday, a PICC line will be placed for home IV antibiotics. For now, we will continue pulmonary toilet and encourage aspiration precautions. 2. Alteration of mental status-this was diagnosed above his baseline dementia. With treatment of his acute illness as described above, patient has achieved improvement, approaching his baseline. For now, we will continue his home medications and supportive care. 3. Acute left distal radius and ulna fracture and possible rotator cuff tear-unfortunately, this was a result of a fall during his delirious state while hospitalized. The patient has been treated with a splint per Dr. Cohen. We will defer management. Pain is controlled. 4. Chronic diastolic heart failure with volume overload-patient does appear to be approaching euvolemia. We will continue his current diuretic regimen. 5. Paroxysmal atrial fibrillation-the patient does appear to be in atrial fibrillation today. At times, during hospitalization his rate has been elevated. For now, we will continue patient on telemetry. We will continue his home regimen. 6. Anticoagulation-patient's INR was supratherapeutic yesterday. His Coumadin has been held. We will recheck PT/INR in the a.m. We will need his INR to be less than 2 by Thursday in order to place the PICC line. 7. Reflux disease-the patient's symptoms are controlled with omeprazole therapy. As above, we will continue aspiration precautions. 8. Hyperlipidemia-the patient is treated with pravastatin therapy. 9. Disposition. At this point, patient continues to require half-way care in a hospital setting. We will plan discharge home once appropriate. cc: Jakub Peres MD
[2019-07-02] MEDS: DUONEB (A & A) INH SCH ×3 (03:30→16:15)
[2019-07-02] MEDS: LASIX PO SCH (08:00)
[2019-07-02 08:31] LABS: INR 3.93; PROTIME 39.8 Seconds (11.0-16.0)
[2019-07-02] MEDS: ROCEPHIN 2 GM in NS 50 ML IV SCH ×2 (08:35→21:01)
[2019-07-02] MEDS: PROSCAR PO SCH (08:36)
[2019-07-02] MEDS: PRILOSEC PO SCH ×2 (08:36→21:01)
[2019-07-02] MEDS: ISOPTIN SR PO SCH ×2 (08:36→21:01)
[2019-07-02] MEDS: KLOR-CON PO SCH (08:36)
[2019-07-02] MEDS: TENORMIN PO SCH ×2 (08:36→21:01)
[2019-07-02 08:37] LABS: AGAP 14; BUN 18 mg/dL (8-22); CALCIUM 8.6 mg/dL (8.8-10.2); CHLORIDE 101 mmol/L (98-107); COSMO 284; CREATININE 0.8 mg/dL (0.7-1.2); ESTIMATED GFR > 60; GLUCOSE 85 mg/dL (70-104); POTASSIUM 3.3 mmol/L (3.5-5.1); SODIUM 142 mmol/L (136-145); TCO2 27 mmol/L (25-35)
[2019-07-02] MEDS: FLOMAX PO SCH (08:37)
[2019-07-02] MEDS: CYMBALTA PO SCH (08:37)
[2019-07-02] MEDS ORDERED: VITAMIN K IM ONE (10:35)
[2019-07-02] MEDS: PRAVACHOL PO SCH (21:01)
[2019-07-02] MEDS: ARICEPT PO SCH (21:01)
[2019-07-02] MEDS: TRICOR PO SCH (21:01)
[2019-07-02] MEDS: SEROQUEL PO SCH (21:01)
--- NOTE | 2019-07-02 21:55 | PROGRESS NOTE ---
DATE: 07/02/2019 Mr. Mac has a history of chronic atrial fibrillation. He remains in atrial fibrillation. Heart rate is fluctuating. His heart rate was as high as 120 today. He denies any chest pain, palpitations, or anginal equivalents. He was admitted to [facility] with acute metabolic encephalopathy secondary to a facility acquired pneumonia. Blood cultures as well as a sputum culture grew out strep sanguis. He is on Rocephin. He was easily arousable. He was oriented to name and place. Temperature 97.6 degrees, pulse 124 and irregular, respiratory rate 16, BP 107/63.CV: Irregularly irregular. Lungs: Faint crackles in the bases. Abdomen: Soft, nontender with active bowel sounds. Extremities: Without edema. ASSESSMENT AND PLAN: 1. Chronic atrial fibrillation. He remains in atrial fibrillation. His heart rate is fluctuating. We will continue verapamil 120 mg b.i.d. but I increased the Tenormin to 25 mg p.o. b.i.d. We will continue to hold the Coumadin as his INR is supratherapeutic. I will give him vitamin K 25 mg subcu x1 dose and recheck a pro time in the morning. 2. Metabolic encephalopathy secondary to a facility-induced pneumonia. Clinically, he is making steady progress. We will continue DuoNeb nebulizer treatments and intravenous Rocephin. If his pro time is subtherapeutic on Thursday we will proceed with PICC line placement as he will need additional intravenous antibiotics as an outpatient. cc: MD Jakub Berman MD
[2019-07-02] MEDS: HALDOL IV PRN (22:16)
[2019-07-03] MEDS: DUONEB (A & A) INH SCH ×6 (00:19→23:17)
[2019-07-03 08:09] LABS: INR 2.4; PROTIME 26.8 Seconds (11.0-16.0)
[2019-07-03] MEDS ORDERED: LANOXIN IV ONE (09:16)
[2019-07-03] MEDS: ROCEPHIN 2 GM in NS 50 ML IV SCH ×2 (09:34→20:29)
[2019-07-03] MEDS: KLOR-CON PO SCH (09:34)
[2019-07-03] MEDS: PRILOSEC PO SCH ×2 (09:35→20:31)
[2019-07-03] MEDS: FLOMAX PO SCH (09:35)
[2019-07-03] MEDS: ISOPTIN SR PO SCH ×2 (09:35→20:31)
[2019-07-03] MEDS: TENORMIN PO SCH ×2 (09:35→20:31)
[2019-07-03] MEDS: PROSCAR PO SCH (09:35)
[2019-07-03] MEDS: CYMBALTA PO SCH (09:35)
--- NOTE | 2019-07-03 10:11 | PROGRESS NOTE ---
DATE: 07/03/2019 Mr. Mac has a history of chronic atrial fibrillation. His heart rate had been fluctuating and we increased the atenolol to 25 mg b.i.d. For the most part, his heart rate is less than 100. He had an episode of tachycardia with a heart rate of 115 this morning. Since increasing the Coreg with aggressive diuresis, his blood pressure has been a little bit low. Today, his blood pressure was 97/58. He is awake and easily arousable. He is oriented to name and place. He was admitted with pneumonia and a strep bacteremia. Blood cultures from 06/30/2019 demonstrated no growth after 48 hours. Blood cultures on 06/25/2019 demonstrated Streptococcus sanguis. PHYSICAL EXAMINATION: Temperature 98.2 degrees, pulse 115 and irregular, respiratory rate 20, BP 97/58. CV: Irregularly irregular. Lungs: Occasional crackles in the bases. Abdomen: Soft, nontender, with active bowel sounds. Extremities: Without edema. ASSESSMENT AND PLAN: 1. Facility-acquired pneumonia with associated bacteremia and sepsis. Clinically, he continues to improve. From a neurologic standpoint, he is awake and easily arousable. He is oriented to name and place. He is approaching his baseline neurologically given his history of underlying dementia. Repeat cultures from 06/30/2019 demonstrated no growth. He is scheduled for peripherally inserted central catheter line placement in the morning for home intravenous antibiotics. 2. Paroxysmal atrial fibrillation. He remains in atrial fibrillation. His heart rate is elevated at times. His blood pressure has dropped on increasing dosages of Coreg. I am going to bolus him with digoxin. His prothrombin time was supratherapeutic. We have been holding his Coumadin. We gave him vitamin K yesterday. His INR was 2.4 today. I will recheck a prothrombin time in the morning. 3. Chronic diastolic congestive heart failure. He is breathing comfortably and maintaining good oxygen saturations. I am going to recheck a chest x-ray today. I am going to hold the Lasix as he appears to be mildly volume depleted. cc: MD Jakub Berman MD
--- NOTE | 2019-07-03 11:26 | Diag Imaging Result Doc PS360 ---
EXAM: CHEST-PORTABLE 07/03/2019 HISTORY: pneumonia TECHNIQUE: AP portable semiupright at 1111 COMMENT: There is apparent pleural fluid on the left. There is hazy opacity in both lower lobes and the inferior portion of the upper lobes. There appears to have been some slight improvement since the previous study of 06/30/2019, although some of this is probably due to differences in technique. IMPRESSION: Bilateral pneumonia with left pleural effusion. Electronically signed by Ramana Wetzel 07/03/2019 11:24 AM
--- NOTE | 2019-07-03 15:26 | INFECTIOUS DISEASE PROGRESS NO ---
DATE: 07/03/2019 PRESENT ILLNESS: The patient has a strep sanguinous bacteremia which most likely originated from a streptococcal pneumonia. MEDICATIONS: The patient is on Rocephin 2 g IV every 12 hours. This is day 3 of treatment with Rocephin, with day 1 being the first day that the patient's repeat blood cultures were sterile. PHYSICAL EXAMINATION: Vital Signs: Temperature is 98.2 degrees, pulse 115, respirations 20, blood pressure 97/58. General: This is a chronically ill-appearing, elderly male. He was sleeping but he did wake up with verbal action. Head, eyes, ears, nose, and throat: He can hear my spoken words and see near objects. He does not have any white coating on his tongue. Neck: No pain with movement. Lungs: Clear to auscultation. Cardiovascular: Heart rate is irregular. It appears he is in atrial fibrillation. Abdomen: Soft and nontender. Neurologic: The patient, as mentioned above, was sleeping but he became arousable. He did move his extremities to request. He answered any questions I asked him with just a few words. Extremities: Patient has a large Marco wrap and splint on the left arm. LAB AND X-RAY: The patient has an x-ray ordered for today but it has not been done. The patient's PT today was 26.8 and the INR was 2.4. Blood cultures drawn on the 30 of June are negative. Procalcitonin level is 0.23 which translates into saying that it is unlikely that the patient has pneumonia. ASSESSMENT AND PLAN: I still think the patient has pneumonia and this was the origin of his streptococcal bacteremia. My plan is to continue Rocephin for 11 more days given that this is day 3 of treatment with Rocephin, with day 1 being the first day that the repeat blood cultures are negative. For tomorrow I have ordered a CBC, a BMP, and a portable chest x-ray. Hopefully the patient's protime will allow a PICC to be placed and then the patient can be transferred to another facility to complete his 11 days of treatment for the strep bacteremia and an associated pneumonia. COMORBIDITIES: The patient is elderly. He has congestive heart failure, gastroesophageal reflux disease, atrial fibrillation, and a recent fracture of his left arm. cc: MD Jakub Loyd MD
[2019-07-03] MEDS: PRAVACHOL PO SCH (20:31)
[2019-07-03] MEDS: TYLENOL PO PRN (20:31)
[2019-07-03] MEDS: TRICOR PO SCH (20:31)
[2019-07-03] MEDS: SEROQUEL PO SCH (20:31)
[2019-07-03] MEDS: ARICEPT PO SCH (20:31)
[2019-07-04] MEDS: DUONEB (A & A) INH SCH ×5 (03:13→23:34)
[2019-07-04 07:34] LABS: BASO# 0.01 X1000 (0.0-0.2); BASO% 0.2 % (0.0-0.8); EOS# 0.29 X1000 (0.0-0.7); EOS% 4.9 % (0.0-10.0); HEMATOCRIT 37.3 % (42.0-52.0); HEMOGLOBIN 11.6 g/dL (14.0-18.0); IMM GRAN# 0.03 X1000 (0.0-0.04); IMM GRAN% 0.5 % (0.0-0.5); LYMPH# 1.04 X1000 (1.2-3.4); LYMPH% 17.4 % (20.5-51.1); MCH 30.4 PG (27-31); MCHC 31.1 g/dL (33-37); MCV 97.6 FL (81-99); MONO# 0.68 X1000 (0.11-0.59); MONO% 11.4 % (1.7-9.3); MPV 9.6 FL (7.4-10.4); NEUT# 3.91 X1000 (1.4-6.5); NEUT% 65.6 % (42.2-75.2); PLT 332 X1000 (130-400); RBC 3.82 XMIL (4.7-6.1); RDW 15.9 % (11.5-14.5); WBC 5.96 X1000 (4.8-10.8)
--- NOTE | 2019-07-04 07:40 | Diag Imaging Result Doc PS360 ---
EXAM: CHEST-1 VIEW INDICATION: pneumonia TECHNIQUE: 2 views COMPARISON: 07/03/2019 FINDINGS: The left pleural effusion is approximately stable. Bibasilar infiltrates are grossly unchanged. No new consolidation is identified. Cardiac silhouette is stable. IMPRESSION: Essentially stable chest. Electronically signed by Julian Orlando 07/04/2019 7:38 AM
[2019-07-04 08:02] LABS: AGAP 7; BUN 19 mg/dL (8-22); CALCIUM 8.9 mg/dL (8.8-10.2); CHLORIDE 103 mmol/L (98-107); COSMO 285; CREATININE 0.9 mg/dL (0.7-1.2); ESTIMATED GFR > 60; GLUCOSE 94 mg/dL (70-104); POTASSIUM 3.8 mmol/L (3.5-5.1); SODIUM 142 mmol/L (136-145); TCO2 32 mmol/L (25-35)
--- NOTE | 2019-07-04 08:30 | ORTHOPAEDICS PROGRESS NOTE ---
DATE: 07/04/2019 SUBJECTIVE: Mr. Mac has had no complaints through the night. He is resting comfortably in bed at this time. He is scheduled to go to rehab today, so we are going to replace the splint on his arm with a cast. This fracture is stable. OBJECTIVE: Mr. Mac is lying in bed. He is in no acute distress. He has no complaints of pain at this time. His splint is intact, and he has full sensation to his fingers, and his cap refill is less than 2 seconds. Once I took the splint down, his skin underneath is very well appearing with no evidence of skin breakdown. He does have some residual bruising to his left upper arm from his fall. There is no bruising to his lower arm. He does not have any swelling to his left distal wrist, and very mild swelling to his hand. He does have tenderness to palpation over his left distal radius. He has a strong palpable radial pulse. ASSESSMENT: Left distal radius and ulna fractures. PLAN: This morning, I replaced Mr. Mac's splint with a cast that was up the proximal third of his lower arm, just inferior to the elbow. I did leave his elbow free to try and help prevent a pressure sore. After cast application, he has full range of motion of his fingers, and sensation is intact. His cap refill is less than 2 seconds. I did inform Mr. Tavera that for any excessive swelling or decrease in sensation of his fingers, to be sure and alert the staff at the rehab facility. We will see him in the office in 2 to 3 weeks for a repeat x-ray. We are obtaining an x-ray today prior to his discharge home. A sling was left with the patient for him to use as needed. He did not have any family at bedside this morning, but all his questions were answered. Dictated by YAMILE Palmer for Cuong Cohen MD cc: MD Jakub Phillip MD MTDD
[2019-07-04 09:00] LABS: INR 1.55; PROTIME 18.8 Seconds (11.0-16.0)
[2019-07-04] MEDS: ROCEPHIN 2 GM in NS 50 ML IV SCH ×2 (09:32→21:34)
[2019-07-04] MEDS: ISOPTIN SR PO SCH ×2 (09:33→21:34)
[2019-07-04] MEDS: CYMBALTA PO SCH (09:33)
[2019-07-04] MEDS: KLOR-CON PO SCH (09:34)
[2019-07-04] MEDS: TENORMIN PO SCH ×2 (09:34→21:34)
[2019-07-04] MEDS: PROSCAR PO SCH (09:34)
[2019-07-04] MEDS: PRILOSEC PO SCH ×2 (09:34→21:34)
[2019-07-04] MEDS: FLOMAX PO SCH (09:34)
--- NOTE | 2019-07-04 12:52 | Diag Imaging Result Doc PS360 ---
EXAM: WRIST COMPLETE LEFT INDICATION: wrist Fx TECHNIQUE: 3 views COMPARISON: None. FINDINGS: There are no healing fractures involving the distal radius and ulna with mild impaction. The fracture fragments are in stable position. No new fracture is identified. Casting material projecting over the wrist. There is soft tissue edema around the wrist. IMPRESSION: Stable healing fractures involving the distal radius and ulna. Electronically signed by Julian Orlando 07/04/2019 12:50 PM
[2019-07-04 18:13] LABS: INR 1.5; PROTIME 18.4 Seconds (11.0-16.0)
--- NOTE | 2019-07-04 19:21 | PROGRESS NOTE ---
DATE: 07/04/2019 SUBJECTIVE: Upon my arrival this morning, patient was sitting in bed. He had already completed his breakfast. Overall, patient states he was doing reasonably well. The patient's chart was reviewed. Weekend events were noted. In summary, patient continued his slow recovery. This evening upon my phone call to the nursing staff, patient had a good day. PICC line is scheduled for tomorrow morning. There has been no evidence of fevers, chills, nausea, vomiting, shortness of breath, or chest discomfort. OBJECTIVE: T-max 98.5 degrees, heart rate 65 to 105, respirations 14 to 18, blood pressure 101 to 136 over 60 to 71.General: Elderly, no acute distress. Cardiovascular: Irregularly irregular. No significant murmurs, rubs or gallops. Pulmonary: Clear to auscultation anteriorly. Abdomen: Soft, nontender, nondistended. Positive bowel sounds. Extremities: No significant clubbing or cyanosis, trace to 1+ lower extremity edema bilaterally. Left upper extremity with a cast. Dermatologic: Evaluation reveals venous stasis changes of bilateral lower extremities. No rash. LABORATORY DATA: White blood cell count 5.96, hemoglobin 11.6, hematocrit 37.3, platelet count 332,000, PT 18.4, INR is 1.50. Sodium 142, potassium 3.8, chloride 103, bicarb 32, BUN 19, creatinine 0.9, glucose 94, calcium 8.9. ASSESSMENT AND PLAN: 1. Assisted living-acquired pneumonia with associated bacteremia/sepsis-blood cultures grew Streptococcus sanguis. Appreciate Dr. Hickey' consultation. Surveillance cultures are negative. We will plan to replace the PICC line in the morning for a total of 14 days of antibiotic intervention. 2. Alteration of mental status-patient has improved to his baseline dementia. We will continue his home medical regimen. 3. Acute left distal radius and ulna fracture and possible rotator cuff tear-patient's x-ray today suggests healing of the fracture. We will defer management to orthopedics. 4. Chronic diastolic heart failure with volume overload-the patient's volume appears to be stable. We will continue his current medical regimen. 5. Paroxysmal atrial fibrillation-the patient continues to appear to be in a more chronic atrial fibrillation. He is rate controlled. We will continue anticoagulation as below. 6. Anticoagulation-patient's INR is slightly subtherapeutic. We will plan to placed PICC line tomorrow then resume Coumadin therapy. We will follow this. 7. Reflux disease-we will continue patient on omeprazole therapy. Symptoms are controlled. 8. Hyperlipidemia-will continue patient on pravastatin therapy. 9. Disposition-at this point, patient continues to require alf care in a hospital setting. We will plan discharge home once appropriate. cc: Jakub Peres MD
--- NOTE | 2019-07-04 19:36 | INFECTIOUS DISEASE PROGRESS NO ---
DATE: 07/04/2019 PRESENT ILLNESS: The patient has a streptococcal pneumonia with an associated bacteremia. MEDICATIONS: The patient is on Rocephin 2 g IV every 12 hours. This is day #4 of Rocephin. PHYSICAL EXAMINATION: Temperature is 98.1 degrees, pulse 82, respirations 16, blood pressure is 136/68.General: This is an ill-appearing elderly male. He is in no acute distress. Head/eyes/ears/nose/throat: He can hear my spoken words and see near objects. He does not have any drainage from his nose or ears. I did not see any white coating of his tongue. Neck: On the left side there is ulcerated lesion. Lungs: Clear to auscultation. Cardiovascular: Heart rate is irregular. Abdomen: Soft and nontender. Extremities: Both legs are erythematous. They have a kind of purplish color and the skin is scaling. Patient has his left arm in a splint with a dressing covering it. Neurologic: The patient is awake. He can move his extremities. There is no tremor. LAB AND X-RAY: The patient's chest x-ray today shows left pleural effusion and bibasilar infiltrates are grossly unchanged. No new consolidation is identified. Laboratory studies, CBC shows a white count of 5960, hemoglobin 11.6, and platelet count 332,000. Creatinine is 0.9. GFR is greater than 60. ASSESSMENT AND PLAN: Patient has streptococcal pneumonia with an associated bacteremia. My plan is to continue Rocephin for 10 more days. COMORBIDITIES: Patient is elderly. He has congestive heart failure, gastroesophageal reflux disease, atrial fibrillation, and a recent fracture in his left arm. cc: MD Jakub Loyd MD
[2019-07-04] MEDS: ARICEPT PO SCH (21:34)
[2019-07-04] MEDS: PRAVACHOL PO SCH (21:34)
[2019-07-04] MEDS: TRICOR PO SCH (21:34)
[2019-07-04] MEDS: SEROQUEL PO SCH (21:34)
[2019-07-05] MEDS: DUONEB (A & A) INH SCH ×2 (03:06→10:21)
[2019-07-05] MEDS: PRILOSEC PO SCH (08:05)
[2019-07-05] MEDS: KLOR-CON PO SCH (08:05)
[2019-07-05] MEDS: FLOMAX PO SCH (08:05)
[2019-07-05] MEDS ORDERED: NS 250 ML ONE (08:05)
[2019-07-05] MEDS: PROSCAR PO SCH (08:05)
[2019-07-05] MEDS: ISOPTIN SR PO SCH (08:05)
[2019-07-05] MEDS: TENORMIN PO SCH (08:06)
[2019-07-05] MEDS: CYMBALTA PO SCH (08:06)
--- NOTE | 2019-07-05 09:38 | Diag Imaging Result Doc PS360 ---
EXAM: CHEST-PORTABLE 07/05/2019 HISTORY: picc placement TECHNIQUE: AP portable upright at 0928 COMMENT: There is a right PICC line with its tip in the superior vena cava. There is pleural thickening and/or fluid on the left. There is atelectasis versus pneumonia in both lung bases particularly in the left lower lobe behind the heart. Compared to 07/04/2019 the parahilar opacity in the right upper lobe has improved. IMPRESSION: Improved pulmonary edema. Left pleural effusion. Bibasilar atelectasis versus pneumonia. Electronically signed by Ramana Wetzel 07/05/2019 9:35 AM
[2019-07-05] MEDS: ROCEPHIN 2 GM in NS 50 ML IV SCH (10:14)
--- NOTE | 2019-07-05 11:39 | DISCHARGE SUMMARY ---
ADMISSION DATE: 06/25/2019 DISCHARGE DATE: 07/05/2019 ADMISSION DIAGNOSIS: Shortness of breath. DISCHARGE DIAGNOSES: 1. Assisted living-acquired pneumonia with associated bacteremia/sepsis secondary to Streptococcus sanguis. 2. Alteration of mental status secondary to above, improved to baseline. 3. Acute left distal radius and ulna fracture, and possible rotator cuff tear secondary to in- hospital fall. 4. Chronic diastolic heart failure with volume overload, present on arrival. 5. Paroxysmal atrial fibrillation, present on arrival. 6. Anticoagulation, present on arrival. 7. Reflux disease, present on arrival. 8. Hyperlipidemia, present on arrival. CONSULTATIONS: 1. Dr. Cohen with Orthopedic Surgery was consulted for further evaluation and management of left distal radius and ulna fractures. 2. Dr. Hickey with Infectious Diseases was consulted for further evaluation and management of Streptococcus sanguis bacteremia/pneumonia. PROCEDURES: 1. CT scan of the chest was performed on 06/25/2019, which revealed cardiomegaly with pulmonary edema and pleural effusions. Bibasilar atelectasis and possibly underlying infiltrates. Mildly prominent mediastinal and hilar lymph nodes. 2. X-ray of the wrist on 06/25/2019 revealed fractures of the distal radius and ulna. 3. X-ray of the shoulder on 06/25/2019 revealed longstanding arthritis accompanied by rotator cuff tear. 4. CT scan of the head was performed on 06/28/2019, which revealed no hemorrhage. Chronic microvascular ischemic changes. Sinusitis. 5. Echocardiogram was performed on 06/28/2019, which revealed global left ventricular systolic function appears to be normal with an ejection fraction of 65% to 70%. Left atrium appears moderately enlarged. Mitral valve shows mild degree of prolapse with a [id number] degree of regurgitation. The patient is in atrial fibrillation. Aortic valve reveals mild degree of regurgitation. Tricuspid valve reveals mild degree of regurgitation. Pulmonary pressure estimated at 26 mmHg. Pulmonic valve is grossly normal. Right ventricle is not dilated. Right atrium is mildly enlarged. There is no pericardial effusion, no mass, no thrombus. Inferior vena cava appears to be within the upper limits of normal. 6. Wrist x-ray was performed on 06/25/2019, which revealed stable healing fractures involving the distal radius and ulna. 7. PICC line was placed on 07/05/2019. HISTORY AND PHYSICAL EXAMINATION: See admit note. PHYSICAL EXAMINATION PRIOR TO DISCHARGE: Vital Signs: Temperature 97.7 degrees, heart rate 99, respirations 20, blood pressure is 132/58. General: Chronically ill-appearing. No acute distress. Cardiovascular: Irregularly irregular. No significant murmurs, rubs, or gallops. Pulmonary: Clear to auscultation bilaterally. Abdomen: Soft, nontender, nondistended. Positive bowel sounds. Extremities: Moves all extremities well. The patient does have a left upper extremity cast placed. No significant clubbing or cyanosis to the lower extremities. Trace lower extremity edema bilaterally. Dermatologic: Multiple ecchymoses and venous stasis changes of bilateral lower extremities. LABORATORY DATA PRIOR TO DISCHARGE: None. HOSPITAL COURSE: The patient was admitted as per history and physical examination. Hospital course per condition is as follows: 1. Assisted living/intermediate-associated pneumonia with bacteremia/sepsis. Upon admission, the patient was noted to have cough, congestion, and mental status changes. Full evaluation was pursued. CT scan of the lung suggested underlying pneumonia. CT scan of the head suggested a possible sinusitis. Blood cultures were drawn and returned positive for Streptococcus sanguis. The patient initially was placed on broad-spectrum antibiotics, but ultimately was transitioned to Rocephin therapy per Dr. Hickey' consultation. Throughout hospitalization, the patient's overall condition improved. On the day of discharge, a PICC line was placed. The patient will require 10 additional days of Rocephin per Dr. Hickey' recommendations. Thereafter, the patient will follow up with Dr. Hickey, and PICC line will be removed. We will defer further management to his discretion. 2. Alteration of mental status. Upon admission, the patient was noted to be considerably altered, above his baseline dementia. Unfortunately, this resulted in a fall from his bed as he tisha without assistance. Throughout hospitalization, with treatment of his underlying sepsis, he did achieve resolution of his mental status changes. At the time of discharge, he had returned to his baseline dementia. We will continue his home regimen of medications. 3. Acute left distal radius and ulna fracture, and possible rotator cuff tear. As above, this occurred during an episode of agitation and mental status change. Unfortunately, he tisha from the bed without assistance, suffering the fracture. The patient was treated by Dr. Cohen. A splint was initially placed. He now has a cast. Surveillance x-rays were performed on the day prior to discharge, revealing healing fracture. We will plan followup with Dr. Cohen as arranged. 4. Chronic diastolic heart failure with volume overload. The patient has longstanding disease. He currently is being treated with Lasix and potassium therapy. At the time of discharge, the patient was euvolemic. I will encourage close followup with his volume status while in intermediate/assisted living. Adjustments with his Lasix may be warranted. Historically, with over-diuresis, he has developed renal dysfunction. 5. Paroxysmal atrial fibrillation. This is an old diagnosis. While hospitalized, he remained in atrial fibrillation the entire hospitalization. It appears that he now has chronic disease. He is rate controlled. He is anticoagulated. 6. Anticoagulation. The patient's Coumadin was held prior to placing the PICC line. Yesterday, INR was 1.5. We will resume Coumadin therapy at his previous dose tonight. He will require close followup at assisted living/intermediate. 7. Reflux disease. The patient was continued on omeprazole therapy while hospitalized. 8. Hyperlipidemia. The patient was continued on pravastatin therapy. 9. Dementia. The patient was maintained on his home medications. DISCHARGE CONDITION: Stable. DISPOSITION: Discharge to intermediate. MEDICATIONS: 1. Acetaminophen 650 mg every 6 hours as needed. 2. DuoNeb every 6 hours while awake. 3. Atenolol 25 mg twice daily. 4. Donepezil 10 mg at bedtime. 5. Duloxetine 40 mg daily. 6. Fenofibrate 145 mg at bedtime. 7. Finasteride 5 mg daily. 8. Omeprazole 20 mg twice daily. 9. Zofran 4 mg daily as needed for nausea. 10. Potassium chloride 40 mEq on Thursday and Thursday, and 20 mEq daily on Thursday, Thursday, , Thursday, and Thursday. 11. Pravastatin 20 mg at bedtime. 12. Seroquel 50 mg at bedtime. 13. Flomax 0.4 mg daily. 14. Verapamil SR 120 mg twice daily. 15. Vitamin D3, 1000 units daily. 16. Lasix 80 mg daily, hold for evidence of dehydration. 17. Namenda 5 mg at bedtime. 18. Coumadin 2 mg on Thursday, , and Thursday evening, and 3 mg on Thursday, Thursday, Thursday, and Thursday. 19. Rocephin 2 grams every 12 hours for 10 days. FOLLOWUP: 1. The patient is to follow up with me in approximately 1 to 2 weeks. 2. The patient is to follow up with Dr. Hickey as arranged. 3. The patient is to follow up with Dr. Cohen as arranged. cc: Jakub Peres MD
[2019-07-05 11:43] VITALS: BP 134/86
== END 2019-07-05 14:28 | DRG 871 ==
LOC: ED 00:32 → 3N 00:33 → SUATTDRO 00:33 → SUPCPDRO 00:33 → 3N 06-30 19:57
PROVIDERS: ADMIT Internal Medicine; ATTEND Internal Medicine

== ENCOUNTER 2019-09-02 18:58 | Inpatient (IN) ==
[2019-09-02] MEDS ORDERED: CARDIZEM IV ONE (20:07)
--- NOTE | 2019-09-02 20:11 | PROVIDER DOCUMENTATION ---
HPI-Cardiac General - General Chief Complaint: B/P Problems Stated Complaint: hypotension, afib, decreased urinary output Time Seen by Provider: 09/02/19 19:16 Source: patient Allergies/Adverse Reactions: Patient Allergies Allergy/AdvReac Type Severity Reaction Status Date / Time Sulfa (Sulfonamide Allergy Unknown Verified 09/02/19 20:12 Antibiotics) codeine [Codeine] AdvReac Intermediate NAUSEA/VOMI Verified 09/02/19 20:12 TING Home Medications: Home Medication List Medication Instructions Recorded Confirmed Last Taken Type Finasteride [Proscar] 5 mg PO QAM 01/10/13 09/02/19 08/24/19 09:00 History Pravastatin Sodium [Pravachol] 20 mg PO QHS 01/10/13 09/02/19 08/24/19 21:00 History Donepezil [Aricept] 10 mg PO QHS #30 tablet 12/01/14 09/02/19 08/24/19 21:00 Rx Cholecalciferol (Vitamin D3) 3,000 unit PO QAM 06/25/19 09/02/19 08/24/19 09:00 History [Vitamin D3] Furosemide [Lasix] 80 mg PO QAM 06/25/19 09/02/19 08/24/19 09:00 History Ondansetron HCl [Zofran] 4 mg PO Q6H PRN 06/25/19 09/02/19 Unknown History Quetiapine [Seroquel] 50 mg PO QHS tab 07/05/19 09/02/19 08/24/19 21:00 Rx Verapamil S.r. [Isoptin Sr] 120 mg PO BID tab 07/05/19 09/02/19 08/24/19 21:00 Rx Acetaminophen [Tylenol] 325 mg PO Q6H PRN PRN 08/24/19 09/02/19 Unknown History Albuterol Sulfate 3 ml INH Q6H 08/24/19 09/02/19 08/24/19 21:00 History Atenolol [Tenormin] 12.5 mg PO BID 08/24/19 09/02/19 08/25/19 08:00 History Ergocalciferol (Vitamin D2) 50,000 unit PO MO 08/24/19 09/02/19 08/22/19 History [Vitamin D2] Fenofibrate [Tricor] 145 mg PO QHS 08/24/19 09/02/19 08/24/19 21:00 History Guaifenesin E.r. [Mucinex] 600 mg PO BID 08/24/19 09/02/19 08/24/19 21:00 History Hydrocodone/Acetaminophen [[place] 1 tab PO Q6H PRN 08/24/19 09/02/19 08/25/19 08:00 History 5-325 Tablet] Ipratropium [place] Inhaler 3 ml INH Q6H 08/24/19 09/02/19 08/24/19 21:00 History [Atrovent Hfa] Mirtazapine 7.5 mg PO QHS 08/24/19 09/02/19 08/24/19 21:00 History Potassium Chloride E.r. [Klor-Con] 20 meq PO MOTUTHFRSA 08/24/19 08/25/19 08/23/19 History Potassium Chloride E.r. [Klor-Con] 40 meq PO SUWE 08/24/19 08/24/19 08/24/19 09:00 History Tamsulosin [Flomax] 0.4 mg PO DAILY #30 cap 08/25/19 09/02/19 Unknown Rx Esomeprazole [Nexium] 40 mg PO DAILY 09/02/19 09/02/19 Unknown History Warfarin Sodium 2 mg PO QHS 09/02/19 09/02/19 Unknown History - History of Present Illness-Cardiac Nature of Presenting Problem: 84 yr old M, hx of atrial fibrillation, presenting from his assisted living facility, with the complaint of "I don't know why I'm here". At his presentation tonight, the pt denies chest pain, palpitations, but does have a.fib with RVR on the monitor. The pt's son did appear at bedside later on, and explained that the reason the pt was here was because he had had poor intake for the past two days, and at the senior living, reportedly had a low BP earlier this evening. The son states that the pt "just hadn't been doing well." Onset/Duration: 2 days ago Timing: still present History of arrythmia: reports: A-Fib Associated Symptoms: reports: denies symptoms Similar Symptoms Previously?: No Recently Seen Here or By Another Healthcare Provider: No Review of Systems - Adult - REVIEW OF SYSTEMS - ADULT Constitutional: reports: no symptoms reported Eyes: reports: no symptoms reported Ears, Nose, Mouth & Throat: reports: no symptoms reported Cardiovascular: reports: no symptoms reported Respiratory: reports: no symptoms reported Gastrointestinal: reports: no symptoms reported Genitourinary: reports: no symptoms reported Musculoskeletal: reports: no symptoms reported Integumentary: reports: no symptoms reported Neurological: reports: no symptoms reported Psychiatric: reports: no symptoms reported Past History - Adult - PAST MEDICAL HISTORY-ADULT Review of Records: reports: Old Records Reviewed, Nursing Assessment Review Major Childhood Illnesses: reports: denies history Cardiovascular: reports: denies history Respiratory: reports: denies history Gastrointestinal: reports: denies history Obstetrical/Gynecological: reports: denies history Genitourinary: reports: denies history Musculoskeletal: reports: denies history Neurological: reports: denies history Endocrine/Immune: reports: denies history Other Conditions: reports: denies history - IMMUNIZATION STATUS Childhood Immunizations: See Nurse Assessment Flu Vaccine: See Nurse Assessment - FAMILY HISTORY Family History: reviewed, not pertinent - SOCIAL HISTORY Living Situation: care facility Physical Exam-General - PHYSICAL EXAM-ADULT Initial Vital Signs Reviewed: Yes - CONSTITUTIONAL General Appearance: alert, no apparent distress - EYES Eyes: PERRL/EOMI - HEAD, EARS, NOSE, MOUTH & THROAT HENMT: normocephalic/atraumatic, moist mucous membranes - RESPIRATORY Respiratory: chest non-tender, lungs clear, normal breath sounds - CARDIOVASCULAR Cardiovascular: no murmur, irregularly irregular - GASTROINTESTINAL (ABDOMEN) Abdominal Exam: normal bowel sounds, non tender, soft - SKIN Integumentary: warm/dry - PSYCHIATRIC Psych/Mental Status: normal mood/affect, other (pt is oriented to self; during our evaluation, he happened to think he was in the elevator being transferred to another room.) - HEART Score HEART Score: History: Slightly Suspicious HEART Score: ECG: Normal HEART Score: Age: > or = 65 Years HEART Score: Risk Factors for Atherosclerotic Disease: 1 or 2 Risk Factors HEART Score: Troponin: 1-3x Normal Limit Total HEART Score:: 4 Progress - PLAN OF CARE/RESULTS Progress/Plan/Lab Results: Vital Signs - 8 hr 09/02/19 20:00 Temperature 97.6 F Pulse Rate 113 H Respiratory Rate 17 Blood Pressure 126/66 O2 Sat by Pulse Oximetry 99 Laboratory Results - last 24 hr 09/02/19 09/02/19 09/02/19 19:37 19:37 19:37 WBC 7.09 RBC 5.47 Hgb 16.8 Hct 50.8 MCV 92.9 MCH 30.7 MCHC 33.1 RDW Std Deviation 20.1 H Plt Count 266 MPV 10.7 H Immature Gran % (Auto) 0.0 Neut % (Auto) 71.8 Lymph % (Auto) 18.8 L [place] % (Auto) 8.7 Eos % (Auto) 0.6 Baso % (Auto) 0.1 Immature Gran # (Auto) 0.00 Neut # (Auto) 5.09 Lymph # (Auto) 1.33 Starr # (Auto) 0.62 H Eos # (Auto) 0.04 Baso # (Auto) 0.01 PT 19.3 H INR 1.59 PTT (Actin FS) 36.3 Sodium 144 Potassium 4.1 Chloride 97 L Carbon Dioxide 29 Anion Gap 18 BUN 27 H Creatinine 1.4 H Estimated GFR/1.73 m2 48 BUN/Creatinine Ratio 19 Glucose 83 Calculated Osmolality 291 Calcium 9.2 Total Bilirubin 1.30 H AST 28 ALT 11 Alkaline Phosphatase 52 Creatine Kinase 28 Troponin T High Sens Total Protein 6.5 Albumin 3.0 L Globulin 3.5 Albumin/Globulin Ratio 0.9 09/02/19 09/02/19 19:37 21:56 WBC RBC Hgb Hct MCV MCH MCHC RDW Std Deviation Plt Count MPV Immature Gran % (Auto) Neut % (Auto) Lymph % (Auto) Starr % (Auto) Eos % (Auto) Baso % (Auto) Immature Gran # (Auto) Neut # (Auto) Lymph # (Auto) Starr # (Auto) Eos # (Auto) Baso # (Auto) PT INR PTT (Actin FS) Sodium Potassium Chloride Carbon Dioxide Anion Gap BUN Creatinine Estimated GFR/1.73 m2 BUN/Creatinine Ratio Glucose Calculated Osmolality Calcium Total Bilirubin AST ALT Alkaline Phosphatase Creatine Kinase Troponin T High Sens 67 H 61 H Total Protein Albumin Globulin Albumin/Globulin Ratio Orders Category Date Time Status Nursing- Obtain EKG once Care 09/02/19 21:17 Active CBC WITH ELECTRONIC DIFF [HEME] Stat Lab 09/02/19 19:37 Completed CK PROFILE [SP CHEM] Stat Lab 09/02/19 19:37 Completed COMPREHENSIVE METABOLIC PANEL [CHEM] Stat Lab 09/02/19 19:37 Completed PT [PROTIME WITH INR] [COAG] Stat Lab 09/02/19 19:37 Completed PTT [COAG] Stat Lab 09/02/19 19:37 Completed TROPONIN T HIGH SENSITIVITY Stat Lab 09/02/19 19:37 Completed TROPONIN T HIGH SENSITIVITY Stat Lab 09/02/19 21:56 Completed 0.9% Sodium Chloride Inj [Ns] 1,000 ml Med 09/02/19 20:35 Discontinued IV 999 mls/hr Diltiazem [Cardizem] Med 09/02/19 20:07 Discontinued 25 mg IV NOW ONE EKG [EKG] Stat Ther 09/02/19 21:17 Ordered Pt's rate initially responded to Diltiazem 25 mg IV - came down from 134 to 80s.The rate did start to come up again - that, in addition with his age and poor intake, led me to speak with the hospitalist for admission, and he accepts the case for further management. Result Diagrams: 09/02/19 19:37 09/02/19 19:37 - EKG 1 Time of EKG reading by physician:: 19:16 EKG Read and Signed by:: Brenden Lyn Rate: 118 Rhythm: atrial fibrillation with RVR [place]: left ST Wave: non-specific ST changes 2 Time of EKG reading by physician:: 10:19 EKG Read and Signed by:: Brenden Lyn Rate: 78 Rhythm: atrial fibrillation [place]: left QRS: other (prolonged QT, left anterior fascicular block) ST Wave: non-specific ST changes - CONSULTS/PCP/HOSPITALIST Notification #1 *Consult/PCP/Hospitalist*: Dr. Yee Time Discussed: 23:05 Consult Disposition: Admit Departure - Departure Date of Disposition Decision: 09/02/19 Time of Disposition Decision: 23:05 DIAGNOSIS: Atrial fibrillation with rapid ventricular response Disposition: ADMITTED INPATIENT 09 Certified Medical Emergency: Emergent Condition: Stable Referrals and Follow-Ups: None,PCP [Primary Care Provider] - - Critical Care Note This patient required my direct & personal management of CC.: No Attestation - Physician/ LION Attestation Patient care was provided by Advanced Practice Provider:: No The physician spent face to face time with patient:: Yes Advanced Practice Provider documentation review:: Supervising physician onsite and consulted in the evaluation and care of this patient. The physician did have a face to face encounter with the patient.
[2019-09-02 20:22] LABS: BASO# 0.01 X1000 (0.0-0.2); BASO% 0.1 % (0.0-0.8); EOS# 0.04 X1000 (0.0-0.7); EOS% 0.6 % (0.0-10.0); HEMATOCRIT 50.8 % (42.0-52.0); HEMOGLOBIN 16.8 g/dL (14.0-18.0); LYMPH# 1.33 X1000 (1.2-3.4); LYMPH% 18.8 % (20.5-51.1); MCH 30.7 PG (27-31); MCHC 33.1 g/dL (33-37); MCV 92.9 FL (81-99); MONO# 0.62 X1000 (0.11-0.59); MONO% 8.7 % (1.7-9.3); MPV 10.7 FL (7.4-10.4); NEUT# 5.09 X1000 (1.4-6.5); NEUT% 71.8 % (42.2-75.2); PLT 266 X1000 (130-400); RBC 5.47 XMIL (4.7-6.1); RDW 20.1 % (11.5-14.5); WBC 7.09 X1000 (4.8-10.8)
[2019-09-02 20:32] LABS: INR 1.59; PROTIME 19.3 Seconds (11.0-16.0)
[2019-09-02 20:33] LABS: PTT 36.3 Seconds (22.3-41.8)
[2019-09-02] MEDS ORDERED: NS 1,000 ML IV ONE (20:35)
[2019-09-02 20:45] LABS: ALB/GLOB RATIO 0.9; CALCIUM 9.2 mg/dL (8.8-10.2); CREATININE 1.4 mg/dL (0.7-1.2); POTASSIUM 4.1 mmol/L (3.5-5.1); TOTAL BILIRUBIN 1.3 mg/dL (0.20-1.00); TOTAL PROTEIN 6.5 g/dL (6.3-8.3)
--- NOTE | 2019-09-02 23:39 | EKG Report ---
Test Performed on : 09/02/2019 10:17:28 PM Test Reason : atrial fibrillation, repeat Blood Pressure : / mmHG Vent. Rate : 078 BPM Atrial Rate : 078 BPM P-R Int : 000 ms QRS Dur : 112 ms QT Int : 410 ms P-R-T Axes : 000 -46 171 degrees QTc Int : 467 ms Atrial fibrillation. Left anterior fascicular block ST & T wave abnormality, consider anterolateral ischemia Prolonged QT Abnormal ECG When compared with ECG of 02-SEP-2019 19:16, (Unconfirmed) Vent. rate has decreased BY 40 BPM T wave inversion now evident in Anterior leads T wave inversion less evident in Lateral leads Unconfirmed Result
[2019-09-03] MEDS ORDERED: TYLENOL PO PRN
[2019-09-03] MEDS ORDERED: ATROVENT HFA INH SCH
[2019-09-03] MEDS ORDERED: NS 1,000 ML IV ONE (00:07)
[2019-09-03] MEDS ORDERED: LOPRESSOR IV ONE (00:08)
[2019-09-03] MEDS ORDERED: ZOFRAN IV PRN (00:47)
--- NOTE | 2019-09-03 01:04 | HISTORY AND PHYSICAL ---
PRIMARY CARE PROVIDER: Jakub Peres. CHIEF COMPLAINT: Low blood pressure. HISTORY OF PRESENT ILLNESS: This is an 84-year-old demented male who [facility] the emergency [facility]. He states that he is not sure why he is here. He denies any complaints. At some point the son came in and spoke to the ER, stated that he had poor oral intake for the past couple of days at the [facility] and reportedly had low blood pressure this evening. In the emergency room, his blood pressure was within normal limits but his heart rate was elevated in the 110s to 120s, atrial fibrillation with RVR. He was given Cardizem push, then his blood pressure became marginal. He also appears to be fluid volume depleted. He will be given fluids and placed on PCU for observation. PAST MEDICAL HISTORY: Longstanding stasis dermatitis, dementia, diastolic dysfunction with lower extremity edema, BPH, GERD, hypertension, hyperlipidemia, gout, atrial fibrillation with anticoagulation on Coumadin, chronic back pain, history of laryngeal mass status post resection, nephrolithiasis, osteoarthritis, 2 melanomas status post resection with positive axillary lymph nodes. PREVIOUS SURGICAL HISTORY: Melanoma resection, laryngeal mass resection. SOCIAL HISTORY: Previous smoker, stopped in 1971. No alcohol or illicit drugs. 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 Lives alone I believe at [facility]. FAMILY HISTORY: Father at age 84 secondary to lung cancer. Mother at age 74 secondary to stroke. ALLERGIES: Codeine and sulfa antibiotics. HOME MEDICATIONS: Tylenol 325 p.o. daily, albuterol sulfate nebulizer q.6 hours, atenolol 12.5 mg p.o. b.i.d., vitamin D3 of 3000 units p.o. q.a.m., Aricept 10 mg p.o. at bedtime, vitamin D2 of 50,000 units p.o. on Mondays, esomeprazole 40 mg p.o. daily, fenofibrate 145 mg p.o. daily, finasteride 5 mg p.o. q.a.m., Lasix 80 mg p.o. q.a.m, Mucinex 600 mg p.o. b.i.d., [place] 5 one p.o. q.6 hours, Atrovent inhalation q.6 hours, mirtazapine 7.5 mg p.o. at bedtime, Zofran 4 mg p.o. q.6 hours, pravastatin 20 mg p.o. at bedtime, Seroquel 50 mg p.o. at bedtime, Flomax 0.4 mg p.o. daily, verapamil SR 120 mg p.o. b.i.d., warfarin 2 mg p.o. at bedtime. REVIEW OF SYSTEMS: Patient denies complaint. Pertinent positives listed above in the HPI. All other systems reviewed and negative. However, he is demented. PHYSICAL EXAMINATION: VITAL SIGNS: Temperature 97.6, pulse 110, respirations 17, blood pressure 126/66, oxygen saturation 99% on room air. GENERAL: Pleasantly confused 84-year-old male lying in the ER stretcher. He is alert and oriented times 2. He is in no acute distress. HEENT: Head is atraumatic, normocephalic. Pupils equal, round, reactive to light. Extraocular eye movement is intact. Sclera is anicteric. Conjunctiva is pink. Oral mucosa is dry. NECK: Supple. No JVD. No thyromegaly. Trachea is midline. No cervical lymphadenopathy. CARDIAC: S1, S2 appreciated. No murmurs, gallops, rubs. It is irregularly irregular. LUNGS: Clear to auscultation bilaterally. No rhonchi, wheezes, rales. Symmetric rise and fall with respirations. ABDOMEN: Soft, nondistended, nontender. Bowel sounds present all 4 quadrants, normoactive. No pulsatile mass. No organomegaly. EXTREMITIES: No clubbing, cyanosis. Trace edema. Chronic hyperpigmentation on bilateral lower extremities related to chronic venostasis. One-plus pedal pulses bilaterally. GENITOURINARY: No bladder distention. Patient voids. Otherwise deferred. NEUROLOGICAL: Alert and oriented times 2. He is oriented to person and place, disoriented to time and situation. Cranial nerves 2 through 12 appear to be grossly intact. LABORATORY DATA: CBC within normal limits. INR 1.59. Sodium 144. Potassium 4.1. Chloride 97. Carbon dioxide 29. BUN is 27. Creatinine 1.4. Glucose 83. ASSESSMENT: 1. Atrial fibrillation with rapid ventricular response. 2. Acute kidney injury. 3. Fluid volume depletion. 4. Chronic diastolic heart failure. 5. Dementia. 6. History of hypertension. 7. Dyslipidemia. PLAN: Ad[facility] patient [facility]. He was given Cardizem in the emergency room. We will not drip at this time. We will give 5 mg of IV metoprolol and continue patient's home p.o. medications. I believe the patient is volume depleted and this is contributing to his rapid ventricular rate. He appears to have received a liter bolus in the emergency room. We will give 1 additional liter of normal saline at 75 mL an hour. Recheck chemistry panel tomorrow morning. INR daily. Continue his Coumadin. We will also continue Lasix tomorrow morning. We will defer to his primary care provider, Jakub Peres, if he would benefit from a lower dose for a few days. Further recommendations per patient clinical course. Dictated by YAMILE Perez for Bereket Yee MD I have performed a face to face diagnostic evaluation. Labs/xrays- reviewed. Exam: Chest-rhonchi, CV- regular. A/P- Afib, with rvr, AMARA- Admit, telemetry, gentle hydration. cc: YAMILE Perez MD Scott A. Matthews, MD [facility]ERErnestina
[2019-09-03] MEDS ORDERED: D50W SYRINGE IV ONE (02:20)
[2019-09-03] MEDS ORDERED: ALBUTEROL NEB INH SCH (04:00)
[2019-09-03 06:09] LABS: INR 1.8; PROTIME 21.3 Seconds (11.0-16.0)
[2019-09-03 06:21] LABS: CALCIUM 8.5 mg/dL (8.8-10.2); CREATININE 1.3 mg/dL (0.7-1.2); POTASSIUM 3.3 mmol/L (3.5-5.1)
[2019-09-03] MEDS: NEXIUM PO SCH (06:32)
[2019-09-03] MEDS: VITAMIN D PO SCH (08:21)
[2019-09-03] MEDS: FLOMAX PO SCH (08:22)
[2019-09-03] MEDS: PROSCAR PO SCH (08:22)
[2019-09-03] MEDS: MUCINEX PO SCH ×2 (08:22→20:22)
[2019-09-03] MEDS: ALBUTEROL NEB INH SCH ×3 (08:43→19:29)
[2019-09-03] MEDS ORDERED: TENORMIN PO SCH (09:00)
[2019-09-03] MEDS ORDERED: LASIX PO SCH (09:00)
--- NOTE | 2019-09-03 09:31 | EKG Report ---
Test Performed on : 09/03/2019 06:31:20 AM Test Reason : chest pain Blood Pressure : / mmHG Vent. Rate : 120 BPM Atrial Rate : 156 BPM P-R Int : 000 ms QRS Dur : 108 ms QT Int : 366 ms P-R-T Axes : 000 -30 154 degrees QTc Int : 517 ms Atrial fibrillation. with rapid ventricular response. Left axis deviation Nonspecific ST and T wave abnormality Abnormal ECG When compared with ECG of 02-SEP-2019 22:17, (Unconfirmed) Vent. rate has increased BY 42 BPM Nonspecific T wave abnormality, improved in Inferior leads T wave inversion no longer evident in Anterior leads Confirmed by Sarahi Jett MD ([id number]) on 09/06/2019 7:39:02 AM
[2019-09-03] MEDS ORDERED: MILK OF MAGNESIA PO ONE (10:25)
[2019-09-03] MEDS ORDERED: DULCOLAX PR ONE (10:25)
[2019-09-03] MEDS: TENORMIN PO SCH ×2 (10:39→20:23)
[2019-09-03] MEDS: ISOPTIN SR PO SCH ×2 (10:39→20:24)
[2019-09-03] MEDS: KLOR-CON PO SCH ×2 (11:36→20:23)
[2019-09-03 12:38] LABS: URINE SOURCE CATH
[2019-09-03 12:58] LABS: BILIRUBIN URINE SMALL (NEGATIVE); BLOOD URINE MODERATE (NEGATIVE); COLOR ORANGE; GLUCOSE URINE NEGATIVE (NEGATIVE); KETONE URINE TRACE mg/dL (NEGATIVE); LEUKOCYTES URINE LARGE (NEGATIVE); NITRITE URINE NEGATIVE (NEGATIVE); PROTEIN URINE 100 mg/dL (NEGATIVE); SP GRAVITY URINE 1.029; TURBIDITY URINE TURBID (CLEAR); UR EPITHELIAL CELLS <10 /HPF (<10); URINE BACTERIA NEGATIVE /HPF; URINE RBC TNTC /HPF (<10); URINE WBC TNTC /HPF (<10); UROBILINOGEN URINE 4 mg/dL (NORMAL)
[2019-09-03 12:59] LABS: URINE CASTS NONE SEEN; URINE YEAST NONE SEEN
[2019-09-03] MEDS: ARICEPT PO SCH (20:22)
[2019-09-03] MEDS: PRAVACHOL PO SCH (20:22)
[2019-09-03] MEDS: SEROQUEL PO SCH ×2 (20:22→22:02)
[2019-09-03] MEDS: COUMADIN PO SCH (20:23)
[2019-09-03] MEDS: ZOFRAN PO PRN (20:37)
[2019-09-03] MEDS ORDERED: REMERON PO SCH (21:00)
[2019-09-03] MEDS ORDERED: COUMADIN PO SCH (21:00)
[2019-09-03] MEDS ORDERED: TRICOR PO SCH (21:00)
[2019-09-04] MEDS: ALBUTEROL NEB INH SCH ×5 (03:35→20:30)
[2019-09-04] MEDS ORDERED: NS 500 ML IV ONE (05:09)
[2019-09-04] MEDS: NEXIUM PO SCH (06:33)
[2019-09-04 06:55] LABS: INR 1.96; PROTIME 22.8 Seconds (11.0-16.0)
[2019-09-04] MEDS: NS 1,000 ML IV SCH ×2 (07:12→17:43)
[2019-09-04] MEDS: PROSCAR PO SCH (08:39)
[2019-09-04] MEDS: TENORMIN PO SCH ×2 (08:40→22:23)
[2019-09-04] MEDS: FLOMAX PO SCH (08:40)
[2019-09-04] MEDS: MUCINEX PO SCH ×2 (08:40→22:22)
[2019-09-04] MEDS: VITAMIN D PO SCH (08:40)
[2019-09-04] MEDS: ISOPTIN SR PO SCH ×2 (08:40→22:21)
[2019-09-04] MEDS: KLOR-CON PO SCH ×2 (08:41→22:21)
[2019-09-04] MEDS: MACROBID PO SCH ×2 (10:03→22:22)
[2019-09-04] MEDS: COUMADIN PO SCH (22:21)
[2019-09-04] MEDS: ARICEPT PO SCH (22:21)
[2019-09-04] MEDS: REMERON PO SCH (22:22)
[2019-09-04] MEDS: SEROQUEL PO SCH (22:22)
[2019-09-04] MEDS: PRAVACHOL PO SCH (22:22)
[2019-09-05] MEDS: NS 1,000 ML IV SCH ×2 (01:29→12:18)
[2019-09-05] MEDS: ALBUTEROL NEB INH SCH ×4 (06:15→20:42)
[2019-09-05] MEDS: NEXIUM PO SCH (06:25)
[2019-09-05 07:12] LABS: INR 2.1
[2019-09-05] MEDS: TENORMIN PO SCH ×2 (08:07→21:38)
[2019-09-05] MEDS: ISOPTIN SR PO SCH ×2 (08:07→21:38)
[2019-09-05] MEDS: PROSCAR PO SCH (08:07)
[2019-09-05] MEDS: VITAMIN D PO SCH ×2 (08:09)
[2019-09-05] MEDS: MUCINEX PO SCH ×2 (08:10→21:38)
[2019-09-05] MEDS: MACROBID PO SCH ×2 (08:10→21:38)
[2019-09-05] MEDS: FLOMAX PO SCH (08:11)
[2019-09-05 10:21] LABS: AGAP 13; BUN 23 mg/dL (8-22); CALCIUM 8.1 mg/dL (8.8-10.2); CHLORIDE 104 mmol/L (98-107); COSMO 286; ESTIMATED GFR > 60; GLUCOSE 76 mg/dL (70-104); POTASSIUM 3.8 mmol/L (3.5-5.1); SODIUM 142 mmol/L (136-145); TCO2 25 mmol/L (25-35)
--- NOTE | 2019-09-05 15:14 | Diag Imaging Result Doc PS360 ---
EXAM: CHEST-2 VIEWS HISTORY: pleural effusion TECHNIQUE: Four views COMPARISON: 07/05/2019 FINDINGS: There are small bilateral pleural effusions similar to the prior exam. No cardiomegaly. There is basilar atelectasis and there may be small underlying infiltrates. The basilar markings on the left are actually less prominent than on the prior study. IMPRESSION: Small pleural effusions with basilar atelectasis and possibly underlying infiltrates. Overall improvement compared to the prior exam Electronically signed by Osito Gomez 09/05/2019 3:12 PM
[2019-09-05] MEDS ORDERED: CYMBALTA PO ONE (19:16)
--- NOTE | 2019-09-05 19:42 | PROGRESS NOTE ---
DATE: 09/05/2019 SUBJECTIVE: The patient's chart was reviewed. In summary, the patient was admitted on 09/03/2019 with the complaint of hypotension. Full evaluation was pursued. The patient was found to be in atrial fibrillation with rapid ventricular response. Acute renal insufficiency was noted with a creatinine of 1.4. The patient was placed in the PVC unit. He was given 5 mg of IV metoprolol and continued on his home medications. Urinalysis was performed, which revealed a large leukocytes, but no bacteria present. Over the weekend, patient was treated with IV fluids and Macrobid for his urinary tract infection. Physical therapy was consulted for his underlying weakness. Upon my arrival this morning, patient was lying in bed. Significant confusion was noted above his baseline. Additionally, the patient was noted to be profoundly depressed, asking to . The patient was redirected. All questions were answered. This evening, upon my arrival, the patient was again lying in bed. Once again, he asked to . P.o. intake has been minimal. He denies fevers, chills, nausea, vomiting, shortness of breath, or chest discomfort at present time. I called the patient's son today. Upon further discussion, he was concerned in regards to rapid weight loss. He has lost approximately 30 pounds over the course of the last 2 months. He notes some difficulty with swallowing as an outpatient. He also has noted a significant decrease in will to live. OBJECTIVE: T-max 98.4, heart rate 78 to 101, respirations 12 to 19, blood pressure 86 to 106 over 50 to 64.General: Chronically ill appearing, in no acute distress. Cardiovascular: Irregularly irregular. No significant murmurs, rubs, or gallops. Pulmonary: Clear to auscultation anteriorly. Abdomen: Soft, nontender, nondistended. Positive bowel sounds. Extremities: Moves all extremities well. No significant clubbing, cyanosis, or edema. Dermatologic: Evaluation reveals multiple ecchymoses and venous stasis of bilateral lower extremities. No significant rash is identified. LABORATORY DATA: Sodium 142, potassium 3.8, chloride 104, bicarb 25, BUN 23, creatinine 1.0, glucose 76, calcium 8.1. White blood cell count 7.09, hemoglobin 16.8, hematocrit 50.8, platelet count is 266,000. ASSESSMENT AND PLAN: 1. Atrial fibrillation with a rapid ventricular response - The patient has a longstanding history of atrial fibrillation with rapid ventricular response. He currently is being rate controlled with atenolol therapy. He is anticoagulated with Coumadin therapy. He denies significant symptoms currently. 2. Acute kidney injury - The patient's creatinine upon admission was 1.4. This has returned to his baseline with IV fluids. We will remain aware. 3. Dehydration - The patient has achieved resolution with IV hydration. We will continue to encourage oral intake. 4. Hypotension - This likely was a consequence of his atrial fibrillation with rapid ventricular response. We will continue his current medical regimen. Blood pressure is somewhat marginal. 5. Significant weight loss - Differential diagnosis is broad. We will plan to check a CT scan of the chest, abdomen and pelvis in the a.m. to rule out underlying pathology. We will consult Dr. Vizcaino in the setting of possible dysphagia. We will encourage p.o. intake. 6. Urinary retention - The patient has an indwelling Coronel catheter. We will consult Dr. Sosa in the morning for further recommendations. 7. Chronic diastolic heart failure - As patient is volume deplete, we will continue to hold Lasix therapy. We will follow this. 8. Reflux disease - We will continue patient on omeprazole therapy. 9. Hyperlipidemia - We will continue pravastatin therapy. 10. Dementia - The patient is currently being treated with donepezil and Seroquel therapy. With his decrease in p.o. intake, we will hold Aricept as this can contribute. We will follow this. 11. Depression - This is profound. He currently is being treated with mirtazapine at bedtime. We will continue this. We will resume duloxetine as he has been treated in the past. 12. Disposition - At this point, patient continues to require [facility] care in a hospital setting. We will plan discharge home once appropriate. cc: Jakub Peres MD
[2019-09-05] MEDS: REMERON PO SCH (21:38)
[2019-09-05] MEDS: SEROQUEL PO SCH (21:38)
[2019-09-05] MEDS: PRAVACHOL PO SCH (21:38)
[2019-09-05] MEDS: COUMADIN PO SCH (21:38)
[2019-09-06] MEDS: ALBUTEROL NEB INH SCH ×4 (03:18→21:55)
[2019-09-06] MEDS: NEXIUM PO SCH (06:07)
[2019-09-06 06:55] LABS: BASO# 0.01 X1000 (0.0-0.2); BASO% 0.2 % (0.0-0.8); EOS# 0.19 X1000 (0.0-0.7); EOS% 3.9 % (0.0-10.0); HEMATOCRIT 38.9 % (42.0-52.0); HEMOGLOBIN 12.7 g/dL (14.0-18.0); LYMPH# 0.91 X1000 (1.2-3.4); LYMPH% 18.5 % (20.5-51.1); MCH 30.8 PG (27-31); MCHC 32.6 g/dL (33-37); MCV 94.2 FL (81-99); MONO# 0.56 X1000 (0.11-0.59); MONO% 11.4 % (1.7-9.3); MPV 11.3 FL (7.4-10.4); NEUT# 3.26 X1000 (1.4-6.5); PLT 195 X1000 (130-400); RBC 4.13 XMIL (4.7-6.1); RDW 20.3 % (11.5-14.5); WBC 4.93 X1000 (4.8-10.8)
[2019-09-06 07:42] LABS: AGAP 14; ALB/GLOB RATIO 0.7; ALKALINE PHOSPHATASE 43 U/L (32-122); BUN 20 mg/dL (8-22); CHLORIDE 108 mmol/L (98-107); COSMO 290; CREATININE 0.9 mg/dL (0.7-1.2); ESTIMATED GFR > 60; GLUCOSE 71 mg/dL (70-104); GOT 21 U/L (10-34); GPT 9 U/L (10-44); SODIUM 145 mmol/L (136-145); TCO2 23 mmol/L (25-35); TOTAL BILIRUBIN 0.69 mg/dL (0.20-1.00); TOTAL PROTEIN 4.7 g/dL (6.3-8.3)
[2019-09-06] MEDS: VITAMIN D PO SCH (09:45)
[2019-09-06] MEDS: TENORMIN PO SCH ×2 (09:45→20:09)
[2019-09-06] MEDS: MACROBID PO SCH ×2 (09:45→20:09)
[2019-09-06] MEDS: PROSCAR PO SCH (09:45)
[2019-09-06] MEDS: CYMBALTA PO SCH (09:45)
[2019-09-06] MEDS: FLOMAX PO SCH (09:45)
[2019-09-06] MEDS: ISOPTIN SR PO SCH ×2 (09:45→20:09)
[2019-09-06] MEDS: MUCINEX PO SCH ×2 (09:46→20:09)
--- NOTE | 2019-09-06 12:50 | Diag Imaging Result Doc PS360 ---
EXAM: CT THORAX/ABD/PELVIS W/O CON 09/06/2019 HISTORY: unexplained 30 pound weight loss in 2 months TECHNIQUE: This exam was performed using automated exposure control, adjustment of mA or kV according to patient size, and/or use of iterative reconstruction technique. COMMENT: Thorax: The current study is compared with the previous examination of 06/25/2019. There are bilateral pleural effusions more so on the left than the right. There is gynecomastia again worse on the left than the right. There is compressive atelectasis in both lungs particularly the lower lobes. There are some dense deposits of calcium in the lower lobes. The possibility of amiodarone deposition cannot be excluded and clinical correlation is recommended in this regard. The regional skeleton is stable in appearance. Compared to the previous study the lateral left pleural effusion is larger than it was. ABDOMEN: The current study is compared with the previous contrast enhanced study of 07/19/2019. There are multiple hepatic cysts which were also present at the time the previous study. The adrenal glands are nonenlarged. The gallbladder is somewhat distended with multiple tiny densely calcified stones. This was also the case at the time the previous study. The pancreas is grossly unremarkable. There is some fluid around the inferior portion of the spleen. The aorta is slightly distended distally to a maximum dimension of 2.8 cm. This has not changed significantly since the previous study. The appendix is normal in appearance. There is no evidence of bowel obstruction. The kidneys are without evidence of hydronephrosis or stones, however there is what appears to be a cyst in the lower pole the right kidney measuring 3.2 cm in diameter. This was also present on the previous study but has a CT density of over 35 Hounsfield units which was also the case previously. This may represent a complicated cyst. Further evaluation with ultrasonography may be desirable. There is diverticulosis in the left colon and fluid in the left paracolic gutter which has increased in volume since the previous study. Pelvis: There is a Coronel catheter in the urinary bladder. The bladder is not distended and is markedly irregular in contour with apparent diverticula over the dome. The prostate gland is slightly enlarged measuring 5.4 x 5.9 cm in the axial plane. This is smaller than on the previous study. There are marked degenerative disc and facet changes in the lower lumbar spine. IMPRESSION: 1. Bilateral pleural effusions and atelectasis. Left gynecomastia. 2. Minimal ascites. 3. Diverticula in the bladder. Improved prostate enlargement. The possibility of cystitis cannot be excluded. 4. Stable abdominal aortic aneurysm. Other nonacute findings as described above. Electronically signed by Ramana Wetzel 09/06/2019 12:47 PM
--- NOTE | 2019-09-06 19:44 | PROGRESS NOTE ---
DATE: 09/06/2019 SUBJECTIVE: Upon my arrival this morning, patient states he slept reasonably well. He continue to state he had no appetite and was not interested in eating. Because of his profound weight loss, CT scan of the chest, abdomen, and pelvis was pursued. The patient was found to have bilateral pleural effusions and atelectasis. Left gynecomastia was identified. Minimal ascites was noted. Diverticula in the bladder was noted but with improved prostate enlargement. Stable abdominal aortic aneurysm was identified. This evening, patient was again lying in bed. He was more conversant. Per nursing staff he has had a good day. Energy level remains low and p.o. intake remains minimal. He denies fevers, chills, nausea, vomiting, shortness of breath, or chest discomfort. OBJECTIVE: T-max 98.6 degrees, heart rate 72-97, respirations 16 to 17, blood pressure 109 to 125 over 55 to 76.General: Chronically ill appearing, no acute distress. Cardiovascular: Irregularly irregular. No significant murmurs, rubs, or gallops. Pulmonary: Essentially clear to auscultation bilaterally. Adequate air movement. Abdomen: Soft, nontender, nondistended. Positive bowel sounds. Extremities: Moves all extremities well. No significant clubbing, cyanosis, or edema. Dermatologic: Evaluation reveals no evidence of rash. Venous stasis changes are noted bilateral lower extremities. LABORATORY DATA: White blood cell count 4.93 hemoglobin 12.7, hematocrit 38.9, platelet count 195,000. Sodium 145, potassium 4.0, chloride 108, bicarb 23, BUN 20, creatinine 0.9, glucose 71, calcium 8.0. Total bilirubin 0.69, total protein 4.7, albumin 2.0, alkaline phosphatase 43, AST 21, ALT 9. ASSESSMENT AND PLAN: 1. Atrial fibrillation with rapid ventricular response-patient is rate controlled at present time. He is anticoagulated with Coumadin. He is asymptomatic. 2. Acute kidney injury-creatinine upon admission was noted to be 1.4. Creatinine today is acceptable at 0.9. We will continue to encourage p.o. intake. 3. Dehydration-patient has achieved improvement with IV hydration. EZA-co-xnhawrxerw ratio is marginal at present time. Once again, we will encourage p.o. intake. 4. Hypotension-patient has achieved resolution since hospitalized. We will follow patient at present time, especially in the setting of medications for atrial fibrillation. 5. Significant weight loss-differential diagnosis remains broad. CT scan suggested only bilateral pleural effusions and mild ascites. While this could be malignant, I suspect this is likely noncontributory to his weight loss. I do remain very concerned that profound depression may be contributing. The patient's p.o. intake is marginal. He is able to swallow pills without incident. Yesterday, we resumed duloxetine therapy which apparently had been discontinued in the recent past. We will follow this. 6. Urinary retention-the patient has an indwelling Coronel catheter. Dr. Sosa has been consulted. At this point, patient likely will require long-term Coronel catheter versus suprapubic catheter placement. 7. Chronic diastolic heart failure-the patient is treated with optimum medical management. He no longer is requiring Lasix intervention. We will continue to follow. This may be the etiology of his pleural effusions. 8. Reflux disease-we will continue patient on omeprazole therapy. 9. Hyperlipidemia-we will continue pravastatin therapy. 10. Dementia-the patient was treated with donepezil and Seroquel upon admission. Aricept has been held for the possibility that this may be contributing to GI upset in the setting of weight loss. We will continue Seroquel. 11. Depression-upon admission, patient was being treated with mirtazapine at bedtime. Duloxetine has been added. We will follow this as well. 12. History of metastatic melanoma-diagnosis was several years ago. We will remain aware that the pleural effusion could be malignant. 13. Disposition-at this point, patient continues to require [facility] care in a hospital setting. We will plan discharge home/to residential once appropriate. cc: Jakub Peres MD
[2019-09-06] MEDS: REMERON PO SCH (20:09)
[2019-09-06] MEDS: COUMADIN PO SCH (20:09)
[2019-09-06] MEDS: PRAVACHOL PO SCH (20:09)
[2019-09-06] MEDS: SEROQUEL PO SCH (20:09)
--- NOTE | 2019-09-06 21:56 | CONSULTATION ---
DATE OF CONSULTATION: 09/06/2019 ATTENDING AND REFERRING PHYSICIAN: Dr. Jakub Peres. CHIEF COMPLAINT: Urinary retention. HISTORY OF PRESENT ILLNESS: This 84-year-old male, with dementia and atrial fibrillation, was admitted with history of hypotension and rapid ventricular response. The patient has been followed for many years in the [facility] for obstructive voiding symptoms. He is on Flomax 2 capsules a day and Proscar 5 mg a day. The patient had a history of hematuria and he underwent cystoscopic exam with bilateral retrograde ureteral pyelograms and bladder biopsies on 08/25/2019. The bilateral retrograde pyelograms did not reveal any filling defects or hydronephrosis. The bladder biopsy was benign. The patient states he feels well and is not sure why he is in the hospital. The patient's cystoscopic exam on 08/25/2019 revealed a large prostate with a trabeculated bladder and multiple diverticula throughout. The patient has an indwelling Coronel catheter and there is old blood in the drainage bag. PAST MEDICAL HISTORY: 1. Dementia. 2. Congestive heart failure. 3. Gastroesophageal reflux disease. 4. Hypertension. 5. Elevated cholesterol. 6. Gout. 7. Atrial fibrillation. 8. COPD. 9. History of renolithiasis. 10. History of melanoma. CURRENT MEDICATIONS: Documented in the chart. PAST SURGICAL HISTORY: 1. Melanoma excision. 2. Laryngeal mass excision. 3. Tonsillectomy and adenoidectomy. 4. Lower back surgery. 5. Hernia repair. 6. Left arm fracture with casting. 7. Prostate biopsy many years ago. SOCIAL HISTORY: No recent tobacco or alcohol use. He lives in a longterm. ALLERGIES: He is allergic to sulfa and codeine. REVIEW OF SYSTEMS: The patient states he feels well and denies any problems with diabetes or other medical problems. PHYSICAL EXAMINATION: General: Mildly obese, but apparent recent weight loss. Age apparent white male, who is cooperative. HEENT: Normal for age. He is edentulous. Lungs: Clear, but distant. Cardiovascular: Irregularly irregular rate and rhythm with distant S1, S2. Abdomen: Protuberant, soft, nontender. No hepatosplenomegaly or masses. Normal bowel sounds. : Uncircumcised male with Coronel catheter in place. Both testes are down with bilateral hydroceles. No inguinal hernias. Rectal: On 08/25/2019, revealed a prostate of 80 to 90 g, smooth and normal consistency. Extremities: With significant contusions of the lower extremities. Significant purpura of the lower extremities. No cyanosis or clubbing. Neurologic: Significant dementia, but no other focal deficits. LABORATORY EVALUATION: Has a white count of 4.93, hemoglobin 12.7, hematocrit of 38.9, and platelets are 195,000. Serum electrolytes are normal. BUN 20, creatinine 0.9. IMPRESSION: 1. Enlarged prostate with obstructive voiding. 2. Urinary retention. 3. Hematuria. 4. Multiple bladder diverticula with a benign biopsy. RECOMMEND: 1. Continue Coronel drainage. 2. Irrigate Coronel catheter if any clots are seen. 3. Discuss with patient placing a suprapubic tube. He will not remember what we discussed. Thank you for this consultation. cc: MD Jakub Okeefe MD
[2019-09-07] MEDS: ALBUTEROL NEB INH SCH ×4 (03:30→21:37)
[2019-09-07] MEDS: NEXIUM PO SCH (06:11)
[2019-09-07] MEDS: MACROBID PO SCH ×2 (10:30→21:10)
[2019-09-07] MEDS: ISOPTIN SR PO SCH (10:30)
[2019-09-07] MEDS: MUCINEX PO SCH ×2 (10:30→21:10)
[2019-09-07] MEDS: CYMBALTA PO SCH (10:30)
[2019-09-07] MEDS: TENORMIN PO SCH ×2 (10:30→21:10)
[2019-09-07] MEDS: FLOMAX PO SCH (10:30)
[2019-09-07] MEDS: VITAMIN D PO SCH (10:30)
[2019-09-07] MEDS: PROSCAR PO SCH (10:30)
[2019-09-07] MEDS ORDERED: BLISTEX MEDICATED BERRY LIP BALM TOP PRN (10:34)
--- NOTE | 2019-09-07 18:22 | PROGRESS NOTE ---
DATE: 09/07/2019 SUBJECTIVE: Upon my arrival this morning, patient was sitting in bed. Each day, he is more interactive. His nurse and I assisted him to the chair. He was able to weight bear, but was quite unsteady on his feet. P.o. intake remains marginal. His heart rate remains controlled. He denies fevers, chills, nausea, vomiting, shortness of breath, or chest discomfort. OBJECTIVE: Vital Signs: T-max 97.6, heart rate 74 to 104, respirations 14 to 21, blood pressure 91 to 124 over 43 to 73. General: Chronically ill appearing, no acute distress. Cardiovascular: Irregularly irregular. No significant murmurs, rubs, or gallops. Pulmonary: Clear to auscultation bilaterally. Abdomen: Soft, nontender, nondistended. Positive bowel sounds. Extremities: No significant clubbing, cyanosis, or edema. Dermatologic: Evaluation reveals significant venous stasis changes of bilateral lower extremities. LABORATORY DATA: None. ASSESSMENT AND PLAN: 1. Atrial fibrillation with rapid ventricular response - Patient's rate remains controlled. He is anticoagulated with Coumadin therapy. In the setting of marginal blood pressure, we will decrease verapamil dosing. We will follow this closely. We will encourage p.o. intake. 2. Acute kidney injury - Patient's creatinine upon admission was 1.4. With hydration, this has returned to 0.9. We will follow this as well. With decreased p.o. intake, he is at risk for dehydration. 3. Dehydration - As above, patient improved with IV hydration. With his marginal p.o. intake, he is again at risk. I discussed this in detail with the patient's son. If patient is unable to maintain adequate hydration with p.o. intake, [*]will need to be considered. 4. Hypertension - Blood pressure has been marginal. We will continue atenolol. This will be followed. 5. Significant weight loss - CT scans from yesterday suggested only bilateral pleural effusions and mild ascites. No definitive etiology was identified. I discussed this in detail with patient's family. At this point, the risk of thoracentesis outweighs the benefits. While this could be a malignant effusion, it is more likely secondary to his underlying heart failure. Upon evaluation, it appears that his antidepressants have been discontinued in the recent past. In the setting of significant depressive symptoms, I am concerned that this may be the primary cause of his weight loss. Duloxetine has been resumed. 6. Urinary retention - I appreciate Dr. Sosa' consultation. He will he will continue to need an indwelling Coronel catheter. I discussed this versus a suprapubic catheter with patient's son. At this point, we will continue a Coronel catheter for now. 7. Chronic diastolic heart failure - Historically, he has required routine Lasix. With his decreased p.o. intake, he is no longer treated with diuretics. As above, we will remain aware that this still could be contributing to his pleural effusions. 8. Reflux disease - We will continue omeprazole therapy. Symptoms are controlled. 9. Hyperlipidemia - We will continue patient on pravastatin. 10. Dementia - Patient was treated with donepezil and Seroquel upon admission. I have held the donepezil in the setting of decreased p.o. intake, as this may cause nausea. We will follow this. 11. Depression - As above, his duloxetine has been resumed. We will continue mirtazapine therapy. 12. History of metastatic melanoma - As above, this certainly could be the etiology of his pleural effusion. We will remain aware. 13. Disposition - At this point, patient continues to require longterm care in a hospital setting. We will plan discharge home once appropriate. cc: Jakub Peres MD
[2019-09-07] MEDS: COUMADIN PO SCH (21:10)
[2019-09-07] MEDS: SEROQUEL PO SCH (21:10)
[2019-09-07] MEDS: PRAVACHOL PO SCH (21:10)
[2019-09-07] MEDS: REMERON PO SCH (21:10)
[2019-09-08] MEDS: ALBUTEROL NEB INH SCH ×4 (03:34→20:20)
[2019-09-08] MEDS: NEXIUM PO SCH ×2 (05:49→06:11)
[2019-09-08 06:29] LABS: BASO# 0.01 X1000 (0.0-0.2); BASO% 0.2 % (0.0-0.8); EOS# 0.07 X1000 (0.0-0.7); EOS% 1.1 % (0.0-10.0); HEMATOCRIT 41.2 % (42.0-52.0); HEMOGLOBIN 13.6 g/dL (14.0-18.0); LYMPH# 1.05 X1000 (1.2-3.4); LYMPH% 16.3 % (20.5-51.1); MCH 31.1 PG (27-31); MCV 94.3 FL (81-99); MONO# 0.58 X1000 (0.11-0.59); MPV 11.5 FL (7.4-10.4); NEUT# 4.73 X1000 (1.4-6.5); NEUT% 73.4 % (42.2-75.2); PLT 219 X1000 (130-400); RBC 4.37 XMIL (4.7-6.1); RDW 20.5 % (11.5-14.5); WBC 6.44 X1000 (4.8-10.8)
[2019-09-08 06:40] LABS: ALB/GLOB RATIO 0.6; ALBUMIN 1.9 g/dL (3.5-5.0); CALCIUM 8.2 mg/dL (8.8-10.2); CREATININE 1.2 mg/dL (0.7-1.2); POTASSIUM 4.2 mmol/L (3.5-5.1); TOTAL BILIRUBIN 0.63 mg/dL (0.20-1.00); TOTAL PROTEIN 4.9 g/dL (6.3-8.3)
[2019-09-08] MEDS: ISOPTIN SR PO SCH (08:25)
[2019-09-08] MEDS: VITAMIN D PO SCH (08:25)
[2019-09-08] MEDS: TENORMIN PO SCH ×3 (08:26→21:26)
[2019-09-08] MEDS: CYMBALTA PO SCH (08:26)
[2019-09-08] MEDS: PROSCAR PO SCH (08:26)
[2019-09-08] MEDS: MUCINEX PO SCH ×3 (08:26→21:25)
[2019-09-08] MEDS: MACROBID PO SCH (08:26)
[2019-09-08] MEDS: FLOMAX PO SCH (08:26)
[2019-09-08] MEDS: NORCO-5 PO PRN ×2 (11:01→17:40)
[2019-09-08] MEDS: ZOFRAN PO PRN (11:01)
[2019-09-08] MEDS ORDERED: VANCOMYCIN IV PER PHARMACY MISC SCH (18:15)
[2019-09-08] MEDS ORDERED: NS 1,000 ML IV SCH (18:15)
--- NOTE | 2019-09-08 18:47 | PROGRESS NOTE ---
DATE: 09/08/2019 SUBJECTIVE: Upon my arrival this morning, the patient was lying in bed. He complains of some pain associated with the ulceration of his right submandibular region. Throughout the day, the patient continues to take no p.o. intake. This evening, patient notes increasing pain associated with the ulceration. There is evidence of pain extending to his posterior auricular region. He has had no evidence of fevers, chills, nausea, vomiting, shortness of breath, or chest discomfort. OBJECTIVE: T-max 98.2, heart rate 106 to 120, respirations 15 to 16, blood pressure 91 to 100 over 43 to 59. General: Chronically ill-appearing. No acute distress. Cardiovascular: Irregularly irregular. Slightly tachycardic. No significant murmurs, rubs, or gallops. Pulmonary: Clear to auscultation bilaterally. Abdomen: Soft, nontender, nondistended. Positive bowel sounds. Extremities: Moves all extremities well. No significant clubbing, cyanosis, or edema. Dermatologic: Evaluation reveals an ulceration to the right submandibular/anterior cervical region with fullness extending to the right posterior auricular region. LABORATORY DATA: White blood cell count 6.44, hemoglobin 13.6, hematocrit 41.2, platelet count 219,000. Sodium 141, potassium 4.2, chloride 104, bicarb 19, BUN 25, creatinine 1.2, glucose 62, calcium 8.2, total bilirubin 0.63, total protein 4.9, albumin 1.9, alkaline phosphatase 40, AST 22, ALT 9. ASSESSMENT AND PLAN: 1. Atrial fibrillation with rapid ventricular response - The patient's rate has increased slightly. Yesterday, we decreased verapamil secondary to hypotension. We will continue current dose of verapamil and atenolol therapy. We will start IV fluids. With IV fluids, blood pressure a likely will allow us to increase his medical intervention. 2. Acute kidney injury - Creatinine upon admission was 1.4. It decreased to 0.9 with IV fluids. Unfortunately, with no significant p.o. intake, this creatinine is trending upwards. Creatinine today is 1.2. We will initiate IV fluids. 3. Dehydration - Unfortunately, the patient is taking no significant p.o. intake. We will resume IV fluids. 4. Hypertension - Blood pressure is marginal. As above, verapamil was decreased yesterday. This has resulted in an increase in his heart rate. We will resume IV fluids as noted. We likely will be able to increase cardiac medications once blood pressure has improved. 5. Significant weight loss - CT scans suggested bilateral pleural effusions and mild ascites. We will we will check a CT scan of the neck as he does have an ulceration, likely secondary to a skin cancer. This certainly could be the etiology of his recurrent weight loss. We will encourage p.o. intake. 6. Right submandibular ulceration with palpable mass/abscess - This has increased over the course of the day today. We will initiate Zosyn and vancomycin therapy. We will refer patient for CT scan of the neck. 7. Urinary retention - The patient has an indwelling Coronel catheter. Depending on his progress, we will consider a suprapubic catheter as an outpatient. 8. Chronic diastolic heart failure - The patient has been treated with diuretics in the past. With minimal p.o. intake, he no longer requires intervention. He is clinically dehydrated today. 9. Reflux disease - We will continue omeprazole therapy. 10. Hyperlipidemia - We will continue pravastatin therapy. 11. Dementia - The patient is currently treated with Seroquel along. Omeprazole was held in the setting of decreased p.o. intake and possible associated nausea. We will follow. 12. Depression - The patient's duloxetine was discontinued as an outpatient. This has been resumed. We will continue mirtazapine therapy. 13. History of metastatic melanoma - This is historical. We will remain aware that this skin lesion to his neck could also be an underlying melanoma. Metastatic disease to the pleural space is also a consideration. 14. Disposition. At this point, patient continues to require [facility] care in a hospital setting. We will plan discharge home once appropriate. If patient does not demonstrate improvement in his p.o. intake and overall health, we may need to consider hospice care. cc: Jakub Peres MD
[2019-09-08] MEDS: COUMADIN PO SCH ×2 (19:57→21:25)
[2019-09-08] MEDS: SEROQUEL PO SCH ×2 (19:57→21:26)
[2019-09-08] MEDS: REMERON PO SCH ×2 (19:58→21:26)
[2019-09-08] MEDS: PRAVACHOL PO SCH ×2 (19:58→21:26)
[2019-09-08] MEDS: ZOSYN 3.375 GM in NS 50 ML IV SCH (19:59)
[2019-09-08] MEDS ORDERED: VANCOMYCIN 2,000 MG in NS 500 ML IV ONE (20:00)
--- NOTE | 2019-09-08 20:47 | Diag Imaging Result Doc PS360 ---
CT NECK W/O CONTRAST - 09/08/2019 INDICATION: right anterior cervical/submandibular mass/abscess COMPARISON: None FINDINGS: There is a nodular skin thickening at the anterior right submandibular fossa. There is probably some subcutaneous inflammation here suggesting cellulitis. There is moderate enlargement of the right parotid gland compared to the left. No solid masses in the parotid glands. No visible stones. No adenopathy. The sinuses, mastoids, and middle ears are clear. Bony structures are intact. Pharyngeal mucosal surfaces are clear. The airways patent. IMPRESSION: 1. Mild skin thickening and subcutaneous inflammation of the right submandibular fossa. Suggests cellulitis. 2. Moderate enlargement of the right parotid gland. This may be involved with cellulitis or may represent parotitis. This exam was performed using automated exposure control, adjustment of mA or kV according to patient size, and/or use of iterative reconstruction technique Electronically signed by Rivera Adams 09/08/2019 8:44 PM
[2019-09-08] MEDS: SODIUM CHLORIDE 75 MEQ in CLINIMIX E 4.25%-5% SOLUTION 1,000 ML IV SCH (21:12)
[2019-09-09] MEDS: ZOSYN 3.375 GM in NS 50 ML IV SCH ×4 (02:57→21:40)
[2019-09-09] MEDS: NORCO-5 PO PRN ×3 (04:37→17:13)
[2019-09-09] MEDS: ALBUTEROL NEB INH SCH ×4 (04:55→21:34)
[2019-09-09] MEDS: NEXIUM PO SCH (06:17)
[2019-09-09 06:20] LABS: BASO# 0.01 X1000 (0.0-0.2); BASO% 0.1 % (0.0-0.8); EOS# 0.01 X1000 (0.0-0.7); EOS% 0.1 % (0.0-10.0); HEMATOCRIT 41.8 % (42.0-52.0); HEMOGLOBIN 13.8 g/dL (14.0-18.0); IMM GRAN# 0.02 X1000 (0.0-0.04); IMM GRAN% 0.1 % (0.0-0.5); LYMPH# 0.63 X1000 (1.2-3.4); LYMPH% 4.2 % (20.5-51.1); MCH 31.4 PG (27-31); MONO# 0.94 X1000 (0.11-0.59); MONO% 6.3 % (1.7-9.3); MPV 11.6 FL (7.4-10.4); NEUT# 13.29 X1000 (1.4-6.5); NEUT% 89.2 % (42.2-75.2); PLT 242 X1000 (130-400)
[2019-09-09 06:33] LABS: ALB/GLOB RATIO 0.6; CALCIUM 8.3 mg/dL (8.8-10.2); CREATININE 1.8 mg/dL (0.7-1.2); POTASSIUM 4.7 mmol/L (3.5-5.1); TOTAL BILIRUBIN 0.74 mg/dL (0.20-1.00); TOTAL PROTEIN 5.2 g/dL (6.3-8.3)
[2019-09-09 06:56] LABS: LYMPHS 6 % (21-51); SEGS 92 % (42-75)
[2019-09-09 07:33] LABS: INR 8.04; PROTIME 70.5 Seconds (11.0-16.0)
[2019-09-09] MEDS: CYMBALTA PO SCH (08:53)
[2019-09-09] MEDS: MUCINEX PO SCH ×2 (08:53→20:36)
[2019-09-09] MEDS: TENORMIN PO SCH ×2 (08:54→20:36)
[2019-09-09] MEDS: FLOMAX PO SCH (08:54)
[2019-09-09] MEDS: PROSCAR PO SCH (08:54)
[2019-09-09] MEDS: VITAMIN D PO SCH (08:54)
[2019-09-09] MEDS: ISOPTIN SR PO SCH (09:30)
[2019-09-09] MEDS: SODIUM CHLORIDE 75 MEQ in CLINIMIX E 4.25%-5% SOLUTION 1,000 ML IV SCH (11:19)
--- NOTE | 2019-09-09 19:19 | PROGRESS NOTE ---
DATE: 09/09/2019 SUBJECTIVE: Overnight, CT scans were performed of his neck secondary to submandibular enlargement. CT scan confirmed moderate enlargement of the right parotid gland possibly involving cellulitis versus parotitis. Mild skin thickening and subcutaneous inflammation of the right submandibular fossa was also noted. Patient was placed on IV Zosyn and IV vancomycin. This morning upon my arrival, patient continued to have considerable pain to the right submandibular region. No significant increase in size of the abnormality was identified. Throughout the day, patient sat in the chair intermittently. P.o. intake remains very marginal/minimal. There has been no evidence of fevers, chills, nausea, vomiting, shortness of breath, or chest discomfort. Upon my arrival this evening, he was sitting upright in the chair. Once again, has pain in the right submandibular region, but no significant change from previous. OBJECTIVE: T-max 97.6 degrees, heart rate 80 to 122, respirations 15 to 20, blood pressure 83 to 104 over 48 to 61.General: Elderly, chronically ill-appearing, no acute distress. Cardiovascular: Irregularly irregular. No significant murmurs, rubs, or gallops. Pulmonary: Clear to auscultation bilaterally. Abdomen: Soft, nontender, nondistended. Positive bowel sounds. Extremities: Moves all extremities well. No significant clubbing, cyanosis or edema. Dermatologic: Evaluation reveals significant venous stasis changes to bilateral lower extremities and parotid gland enlargement of the right with associated pain to palpation on the right. LABORATORY DATA: White blood cell count 14.90, hemoglobin 13.8, hematocrit 41.8, platelet count 242,000. INR is 8.04. Sodium 139, potassium 4.7, chloride 100, bicarb 15, BUN 33, creatinine 1.8, glucose 139, calcium 8.3, total bilirubin 0.74, total protein 5.2, albumin 2.0, alkaline phosphatase 43, AST 19, ALT 10. ASSESSMENT AND PLAN: 1. Atrial fibrillation with rapid ventricular response-unfortunately, we are having difficulty treating secondary to his marginal blood pressure. Verapamil dosing has been decreased. Atenolol has been continued. Heart rate remains around 100. With starting intravenous fluids, anticipate blood pressure to recover. If his heart rate remains elevated and blood pressure remains marginal, we will consider adding digoxin therapy. 2. Acute kidney injury-creatinine upon admission was 1.4. With IV hydration, this improved to 0.9. Unfortunately, patient has not been taking adequate p.o. intake while hospitalized. For this reason, creatinine is increased back to 1.8 today. Intravenous fluids were initiated last night. I anticipate with IV hydration, we will achieve improvement. 3. Dehydration-as above, patient is taking minimal intake. Intravenous fluids were initiated yesterday. 4. Hypertension-the patient's verapamil has been decreased while hospitalized secondary to relative hypotension. We will continue to adjust medications as necessary. Blood pressure at present time is marginal. 5. Significant weight loss-CT scan suggested bilateral pleural effusions and mild ascites. CT scan of the neck suggests parotitis. I am concerned the patient's weight loss may indeed be simply secondary to underlying depression. He is being treated with duloxetine therapy. We will also consider a malignant effusion, however the risk of evaluation for this outweighs the benefits at present time. If patient does not respond with increasing p.o. intake, we may need to consider hospice intervention. 6. Right submandibular ulceration/right parotitis-Zosyn and vancomycin therapy have been initiated. We will repeat labs in the morning. 7. Urinary retention-patient has a chronic indwelling Coronel catheter. We will follow this clinically. 8. Chronic diastolic heart failure-patient has been treated with diuretics in the past. At present time, with decreased p.o. intake, he does not require intervention. We will follow. 9. Reflux disease-we will continue omeprazole therapy. 10. Hyperlipidemia-we will continue patient on pravastatin therapy. 11. Dementia-in the setting of decreased p.o. intake, his Aricept was discontinued. He continues Seroquel therapy. Symptoms are stable. 12. Depression-this is significant. His duloxetine was discontinued as an outpatient. We resumed this several days back. Mirtazapine was continued. It will likely take several days for full effect to occur. 13. History of metastatic melanoma-we will remain aware, especially in the setting of unexplained and significant weight loss. 14. Supratherapeutic INR-Coumadin has been held. We will check a PT and INR in the a.m. He has no evidence of bleeding. 15. Disposition-at this point, patient continues to require halfway care in a hospital setting. We will plan discharge home once appropriate. cc: Jakub Peres MD
[2019-09-09] MEDS: PRAVACHOL PO SCH (20:36)
[2019-09-09] MEDS: REMERON PO SCH (20:36)
[2019-09-09] MEDS: SEROQUEL PO SCH (20:36)
[2019-09-10] MEDS: SODIUM CHLORIDE 75 MEQ in CLINIMIX E 4.25%-5% SOLUTION 1,000 ML IV SCH ×2 (01:20→13:04)
[2019-09-10] MEDS: ZOSYN 3.375 GM in NS 50 ML IV SCH ×4 (02:55→20:26)
[2019-09-10] MEDS: ALBUTEROL NEB INH SCH ×4 (03:57→21:51)
[2019-09-10] MEDS: NEXIUM PO SCH (06:31)
[2019-09-10 06:55] LABS: BASO# 0.01 X1000 (0.0-0.2); BASO% 0.1 % (0.0-0.8); EOS# 0.03 X1000 (0.0-0.7); EOS% 0.3 % (0.0-10.0); HEMATOCRIT 39.6 % (42.0-52.0); HEMOGLOBIN 13.3 g/dL (14.0-18.0); IMM GRAN# 0.03 X1000 (0.0-0.04); IMM GRAN% 0.3 % (0.0-0.5); LYMPH# 0.66 X1000 (1.2-3.4); LYMPH% 6.1 % (20.5-51.1); MCH 31.1 PG (27-31); MCHC 33.6 g/dL (33-37); MCV 92.7 FL (81-99); MONO# 0.71 X1000 (0.11-0.59); MONO% 6.5 % (1.7-9.3); MPV 11.8 FL (7.4-10.4); NEUT# 9.46 X1000 (1.4-6.5); NEUT% 86.7 % (42.2-75.2); PLT 138 X1000 (130-400); RBC 4.27 XMIL (4.7-6.1); RDW 20.9 % (11.5-14.5)
[2019-09-10 07:14] LABS: INR 8.11
[2019-09-10 07:46] LABS: LYMPHS 4 % (21-51); MONO 4 % (1-9); SEGS 92 % (42-75)
[2019-09-10 08:05] LABS: ALB/GLOB RATIO 0.7; CALCIUM 8.1 mg/dL (8.8-10.2); CREATININE 1.5 mg/dL (0.7-1.2); POTASSIUM 4.7 mmol/L (3.5-5.1); TOTAL BILIRUBIN 0.54 mg/dL (0.20-1.00); TOTAL PROTEIN 4.7 g/dL (6.3-8.3)
[2019-09-10] MEDS: PROSCAR PO SCH (08:41)
[2019-09-10] MEDS: MUCINEX PO SCH ×2 (08:41→20:27)
[2019-09-10] MEDS: VITAMIN D PO SCH (08:41)
[2019-09-10] MEDS: TENORMIN PO SCH ×2 (08:42→20:27)
[2019-09-10] MEDS: FLOMAX PO SCH (08:42)
[2019-09-10] MEDS: CYMBALTA PO SCH (08:42)
[2019-09-10] MEDS: ISOPTIN SR PO SCH (08:48)
[2019-09-10] MEDS ORDERED: VANCOMYCIN 1,200 MG in NS 250 ML IV SCH (12:00)
--- NOTE | 2019-09-10 12:35 | PROGRESS NOTE ---
DATE: 09/10/2019 SUBJECTIVE: Overnight no significant incidents were reported. This morning, upon my arrival, patient is somewhat somnolent. He is, however, easily arousable. Upon discussion, patient states he feels reasonably well. He continues to have pain in the right parotid region. He denies fevers, chills, nausea, vomiting, shortness of breath, or chest discomfort. Over the course of the last 24 hours, p.o. intake remains minimal. Energy level remains quite low. OBJECTIVE: T-max 97.6 degrees, heart rate 68 to 92, respirations 14 to 18, blood pressure 92 to 104/48 to 61.General: Chronically ill appearing, in no acute distress. Cardiovascular: Irregularly, irregular. No significant murmurs, rubs, or gallops. Pulmonary: Clear to auscultation anteriorly. Abdomen: Soft, nontender, nondistended. Positive bowel sounds. Extremities: Moves all extremities well. No significant clubbing, cyanosis or edema to the lower extremities. Right upper extremity has 1+ edema. Dermatologic: Evaluation reveals venous stasis changes to bilateral lower extremities. The right parotid region with a nodular density tender to palpation, decreased in size from yesterday. LABORATORY DATA: White blood cell count 10.90, hemoglobin 13.3, hematocrit 39.6, platelet count 138,000. PT 71.0, INR is 8.11. Sodium 135, potassium 4.7, chloride 104, bicarb 19, BUN 46, creatinine 1.5, glucose 131, calcium 8.1, total bilirubin 0.54, total protein 4.7, albumin 2.0, alkaline phosphatase 44, AST 15, ALT 9. ASSESSMENT AND PLAN: 1. Atrial fibrillation with rapid ventricular response-at present time, patient is rate controlled. He currently is being treated with atenolol and verapamil therapy. Blood pressure remains marginal. Should patient develop increasing heart rate over the course of the next 24 hours we will consider adding digoxin therapy as there is minimal room for increase of these medications with marginal blood pressure. 2. Acute kidney injury-creatinine upon admission was 1.4. This improved with IV fluids to 0.9. With discontinuing IV fluids, patient has taken in minimal p.o. Creatinine increased to 1.8 yesterday. With resuming IV fluids, creatinine today is 1.5. We will continue IV fluids at current dosing. 3. Dehydration-this is a consequence of minimal p.o. intake. IV fluids were initiated on . We will continue this. 4. Hypertension-this was diagnosed prior to hospitalization. With a significant decline in weight and p.o. intake, this has reversed. At present time, we are working towards maintaining adequate blood pressure in the setting of treatment for atrial fibrillation. We will treat as noted above. 5. Significant weight loss-recent CT scan suggested bilateral pleural effusions and mild ascites. CT scan of the neck suggested parotiditis. At this point, we will continue treatment of parotiditis as noted below. The risk of thoracentesis outweighs the benefits at present time. We will remain aware. With a history of melanoma his effusions could be malignant. I remain very concerned that depression is also contributing to his decreased p.o. intake. We will continue duloxetine therapy. We will continue to encourage p.o. intake routinely. 6. Right parotiditis-the patient is being treated with Zosyn and vancomycin therapy. He continues to have significant tenderness and inflammation, however, this has decreased from yesterday. White blood cell count has also decreased. We will continue to follow this. 7. Urinary retention-patient has an indwelling Coronel catheter. At present time, he is asymptomatic. 8. Chronic diastolic heart failure-patient has longstanding disease. Historically, he has been treated with diuretics. At present time, he requires no medical intervention. We will remain aware. 9. Reflux disease-we will continue aspiration precautions and omeprazole therapy. Symptoms are controlled. 10. Hyperlipidemia-we will continue patient on pravastatin therapy. 11. Dementia-this likely is contributing to his underlying depression. Aricept has been discontinued in the setting of decreased p.o. intake. We will continue Seroquel therapy. Symptoms are controlled. 12. Depression-as above, this has been significant in the past. I remain concerned that this is contributing to his decrease in p.o. intake. We will continue duloxetine and mirtazapine for now. 13. History of metastatic melanoma-this is historical, dating approximately 10 years ago. We will remain aware that his pleural effusions could be malignant, however, underlying diastolic heart failure seems more likely. 14. Supratherapeutic INR-INR increased slightly from yesterday. As he has no evidence of active bleeding, we will hold off on vitamin K intervention. We will continue to hold Coumadin therapy. Should INR remain elevated over the next several days, we will consider adding vitamin K. 15. Disposition. At this point, patient continues to require [facility] care in a hospital setting. As patient has minimal p.o. intake, I am concerned the patient may require hospice care as an outpatient. We will continue to discuss this with family. cc: Jakub Peres MD
[2019-09-10] MEDS: SEROQUEL PO SCH (20:27)
[2019-09-10] MEDS: REMERON PO SCH (20:27)
[2019-09-10] MEDS: PRAVACHOL PO SCH (20:27)
[2019-09-11] MEDS: ZOSYN 3.375 GM in NS 50 ML IV SCH ×4 (03:14→20:36)
[2019-09-11] MEDS: SODIUM CHLORIDE 75 MEQ in CLINIMIX E 4.25%-5% SOLUTION 1,000 ML IV SCH ×2 (03:15→17:34)
[2019-09-11] MEDS: ALBUTEROL NEB INH SCH ×5 (03:47→21:48)
[2019-09-11] MEDS: NEXIUM PO SCH (06:25)
[2019-09-11 07:13] LABS: INR 4.17; PROTIME 41.7 Seconds (11.0-16.0)
[2019-09-11 07:18] LABS: EOS# 0.07 X1000 (0.0-0.7); EOS% 0.8 % (0.0-10.0); HEMATOCRIT 38.8 % (42.0-52.0); HEMOGLOBIN 13.1 g/dL (14.0-18.0); LYMPH# 0.48 X1000 (1.2-3.4); LYMPH% 5.5 % (20.5-51.1); MCH 30.9 PG (27-31); MCHC 33.8 g/dL (33-37); MCV 91.5 FL (81-99); MONO# 0.57 X1000 (0.11-0.59); MONO% 6.5 % (1.7-9.3); MPV 12.1 FL (7.4-10.4); NEUT% 87.2 % (42.2-75.2); PLT 164 X1000 (130-400); RBC 4.24 XMIL (4.7-6.1); RDW 20.7 % (11.5-14.5); WBC 8.72 X1000 (4.8-10.8)
[2019-09-11 08:09] LABS: AGAP 14; BUN 42 mg/dL (8-22); CALCIUM 8.7 mg/dL (8.8-10.2); CHLORIDE 109 mmol/L (98-107); COSMO 294; ESTIMATED GFR > 60; GLUCOSE 113 mg/dL (70-104); POTASSIUM 4.6 mmol/L (3.5-5.1); SODIUM 142 mmol/L (136-145); TCO2 19 mmol/L (25-35)
[2019-09-11] MEDS: ISOPTIN SR PO SCH (08:56)
[2019-09-11] MEDS: FLOMAX PO SCH (08:56)
[2019-09-11] MEDS: CYMBALTA PO SCH (08:56)
[2019-09-11] MEDS: MUCINEX PO SCH ×2 (08:57→20:36)
[2019-09-11] MEDS: PROSCAR PO SCH (08:57)
[2019-09-11] MEDS: TENORMIN PO SCH ×2 (08:57→20:36)
[2019-09-11] MEDS: VITAMIN D PO SCH (08:57)
--- NOTE | 2019-09-11 13:01 | PROGRESS NOTE ---
DATE: 09/11/2019 SUBJECTIVE: He had an uneventful night. He was a little bit somnolent, but easy to arouse. States that he feels well. Continues to have a little discomfort in the right parotid region, although this is better. Denies any fever, chills, or nausea. OBJECTIVE: Vital Signs: Temperature 98.2 degrees, pulse 86, respirations 21, blood pressure 104/53. HEENT: Pupils are equal and round. Lungs: Clear in all lung [place]. Cardiovascular: Regular rhythm and rate without murmur or S3. His urine output was 3400 mL. ASSESSMENT AND PLAN: 1. Atrial fibrillation with rapid ventricular response when he presented. The patient's rate is controlled. Treated with atenolol and verapamil. Blood pressure is running between 87 and 110 systolic, and in the 50s diastolic. 2. Acute kidney injury. Creatinine on admission was 1.4. After intravenous fluids, it has improved to 0.9. He is taking minimal oral intake. We discontinued intravenous fluids, and his creatinine increased to 1.8, and so we are following it. Yesterday, it was down to 1.5, and today it is down to 1.0. 3. Dehydration secondary to poor oral intake. Intravenous fluids have helped. 4. Hypertension. This was diagnosed on prior hospitalization. Significant decline in weight and oral intake. This is reversed, and we are working toward maintaining adequate blood pressure. 5. Significant weight loss. Recent CT suggested bilateral pleural effusions, mild ascites. CT scan of the neck suggested parotiditis, so continue treatment. The risk of thoracentesis outweighs the benefits at the present time. He has a history of melanoma as effusion could be malignant, and concerned that his depression is contributing to his decreased oral intake. 6. Right parotiditis, treated with Zosyn and vancomycin. 7. Urinary retention. Has an indwelling Coronel. 8. Chronic diastolic heart failure. Has longstanding disease. Continue to treat with diuretics as necessary. Right now, blood pressure is marginal. 9. Reflux diuresis. Continue aspiration precautions, omeprazole therapy. 10. Hyperlipidemia. He is on pravastatin. 11. Dementia contributing to an underlying history of depression. Aricept has been discontinued in the setting of poor oral intake. 12. Depression. 13. Metastatic melanoma. This is historical, dating approximately 10 years ago. Remain aware that his pleural effusion could be malignant. History of underlying diastolic heart failure seems more likely to be the cause of his problems at this time. 14. Supratherapeutic INR. His ProTime is 41 today, so obviously holding Coumadin. REVIEW OF ORDERS: I do not see any change at this point. REVIEW OF LABORATORY DATA: As I said, ProTime is 41. INR is 4. Sodium 142, potassium 4.6, chloride 109, BUN 42, creatinine 1.0. CBC: White blood cell count 8720, hematocrit 38, hemoglobin 13. cc: MD Jakub Rios MD
[2019-09-11] MEDS: VANCOMYCIN 1,600 MG in NS 250 ML IV SCH (15:06)
[2019-09-11] MEDS: SEROQUEL PO SCH (20:36)
[2019-09-11] MEDS: REMERON PO SCH (20:36)
[2019-09-11] MEDS: PRAVACHOL PO SCH (20:36)
[2019-09-12] MEDS: ALBUTEROL NEB INH SCH ×4 (03:27→22:21)
[2019-09-12] MEDS: ZOSYN 3.375 GM in NS 50 ML IV SCH ×4 (03:37→20:54)
[2019-09-12] MEDS: SODIUM CHLORIDE 75 MEQ in CLINIMIX E 4.25%-5% SOLUTION 1,000 ML IV SCH ×2 (06:15→23:56)
[2019-09-12] MEDS: NEXIUM PO SCH (06:15)
[2019-09-12 08:17] LABS: BASO# 0.01 X1000 (0.0-0.2); BASO% 0.2 % (0.0-0.8); EOS# 0.17 X1000 (0.0-0.7); EOS% 3.2 % (0.0-10.0); HEMOGLOBIN 12.4 g/dL (14.0-18.0); LYMPH# 0.58 X1000 (1.2-3.4); MCH 31.9 PG (27-31); MCHC 33.5 g/dL (33-37); MCV 95.1 FL (81-99); MONO# 0.59 X1000 (0.11-0.59); MONO% 11.2 % (1.7-9.3); MPV 10.9 FL (7.4-10.4); NEUT# 3.94 X1000 (1.4-6.5); NEUT% 74.4 % (42.2-75.2); PLT 136 X1000 (130-400); RBC 3.89 XMIL (4.7-6.1); RDW 21.5 % (11.5-14.5); WBC 5.29 X1000 (4.8-10.8)
[2019-09-12] MEDS: ISOPTIN SR PO SCH (08:24)
[2019-09-12] MEDS: VITAMIN D PO SCH ×2 (08:24)
[2019-09-12] MEDS: PROSCAR PO SCH (08:24)
[2019-09-12] MEDS: FLOMAX PO SCH (08:24)
[2019-09-12] MEDS: CYMBALTA PO SCH (08:24)
[2019-09-12] MEDS: TENORMIN PO SCH ×2 (08:24→20:51)
[2019-09-12] MEDS: MUCINEX PO SCH ×2 (08:24→20:50)
[2019-09-12 08:28] LABS: INR 3.64; PROTIME 37.4 Seconds (11.0-16.0)
[2019-09-12 08:29] LABS: AGAP 11; BUN 34 mg/dL (8-22); CALCIUM 8.2 mg/dL (8.8-10.2); CHLORIDE 109 mmol/L (98-107); COSMO 287; CREATININE 0.7 mg/dL (0.7-1.2); ESTIMATED GFR > 60; GLUCOSE 94 mg/dL (70-104); POTASSIUM 4.7 mmol/L (3.5-5.1); SODIUM 140 mmol/L (136-145); TCO2 20 mmol/L (25-35)
[2019-09-12] MEDS: VANCOMYCIN 1,600 MG in NS 250 ML IV SCH (14:35)
[2019-09-12] MEDS: SEROQUEL PO SCH (20:50)
[2019-09-12] MEDS: REMERON PO SCH (20:50)
[2019-09-12] MEDS: PRAVACHOL PO SCH (20:50)
--- NOTE | 2019-09-12 21:10 | PROGRESS NOTE ---
DATE: 09/12/2019 SUBJECTIVE: Patient's chart was reviewed. In summary, patient's overall condition was largely unchanged during my absence on Thursday. Over the course of the last 24 hours, patient states he has done reasonably well. He denies fevers, chills, nausea, vomiting, shortness of breath, or chest discomfort. Upon my arrival this morning, he was resting in bed. Throughout the day, patient did have a slight increase in his p.o. intake. His energy level was slightly improved. This evening, patient was noted to have some confusion. He was, however, pleasant and interactive. He continues to have pain to his right parotid region. OBJECTIVE: Vital signs: T-max 98.3 degrees, heart rate 84 to 93, respirations 14 to 19, blood pressure 84 to 111 over 56 to 75. General: Chronically ill appearing, in no acute distress. Cardiovascular: Irregularly irregular. No significant murmurs, rubs, or gallops. Pulmonary: Clear to auscultation bilaterally. Abdomen: Soft, nontender, and nondistended. Positive bowel sounds. Extremities: No significant clubbing or cyanosis. There is 1+ lower extremity edema bilaterally. Dermatologic: Evaluation reveals venous stasis changes of bilateral lower extremities. Head and Neck: Reveals a tender enlarged right parotid gland, improved from Thursday. LABORATORY DATA: White blood cell count 5.29, hemoglobin 12.4, hematocrit 37.0, platelet count 136,000. PT 37.4, INR is 3.64. Sodium 140, potassium 4.7, chloride 109, bicarb 20, BUN 34, creatinine 0.7, glucose 94, calcium 8.2. ASSESSMENT AND PLAN: 1. Atrial fibrillation with rapid ventricular response: Patient is rate controlled. We will continue atenolol and verapamil therapy. 2. Acute kidney injury: Upon admission, creatinine was 1.4. Upon discontinuing intravenous fluids, creatinine increased to 1.8. With resuming intravenous fluids, creatinine today is 0.7. For now, we will continue intravenous fluids. If patient is unable to adequately hydrate, we will encourage the patient to continue improving hydration. 3. Dehydration: This is a consequence of minimal oral intake. With intravenous fluids, this has resolved. 4. Hypertension: Blood pressure remains marginal, but reasonably controlled. We will continue his current regimen. 5. Significant weight loss: CT scan suggested bilateral pleural effusions with mild ascites. No evidence of overt malignancy was identified. We will continue to encourage oral intake. Antidepressant medications have been resumed. I discussed case in detail with patient's family, as described below. 6. Right parotiditis: The patient is being treated with Zosyn and vancomycin therapy. Symptoms are slowly improving. White blood cell count is within normal limits. 7. Urinary retention: The patient's Coronel catheter remains intact. He is asymptomatic. 8. Chronic diastolic heart failure: Patient is retaining some fluid since starting intravenous replacement. We will remain aware. Historically, he has required Lasix therapy. 9. Reflux disease: We will continue aspiration precautions and omeprazole therapy. 10. Hyperlipidemia: We will continue patient on pravastatin therapy. 11. Dementia: The patient's Aricept was held in the setting of decreased oral intake. His Seroquel continues. Overall, he is doing reasonably well. As above, he did note mild confusion tonight. 12. History of metastatic melanoma: We will remain aware, especially in the setting of bilateral pleural effusions. At this point, the risk of thoracentesis outweighs the benefits. 13. Supratherapeutic INR: INR is trending downward. We will continue to hold Coumadin therapy. 14. Prognosis: I discussed case in detail with patient's son and patient's [id number]. At this point, if his oral intake does not improve, he likely will demonstrate a gradual decline. We discussed that continuing intravenous fluids was not a long-term option. We also discussed the potential complications associated with artificial feeding, including a percutaneous endoscopic gastrostomy tube. The patient's son will discuss this with his brothers. He will consider whether hospice/palliative care would be most appropriate. 15. Disposition: At this point, patient continues to require snf care in a hospital setting. We will plan discharge home once appropriate. cc: Jakub Peres MD
[2019-09-12 21:55] LABS: INR 3.27; PROTIME 34.3 Seconds (11.0-16.0)
[2019-09-13] MEDS: SODIUM CHLORIDE 75 MEQ in CLINIMIX E 4.25%-5% SOLUTION 1,000 ML IV SCH ×2
[2019-09-13] MEDS: ALBUTEROL NEB INH SCH ×4 (03:05→20:25)
[2019-09-13] MEDS: ZOSYN 3.375 GM in NS 50 ML IV SCH ×4 (03:17→20:11)
[2019-09-13] MEDS: NEXIUM PO SCH ×2 (05:58→06:23)
[2019-09-13] MEDS: MUCINEX PO SCH ×2 (08:38→20:10)
[2019-09-13] MEDS: VITAMIN D PO SCH (08:38)
[2019-09-13] MEDS: CYMBALTA PO SCH (08:38)
[2019-09-13] MEDS: FLOMAX PO SCH (08:38)
[2019-09-13] MEDS: ISOPTIN SR PO SCH (08:38)
[2019-09-13] MEDS: TENORMIN PO SCH ×2 (08:38→20:11)
[2019-09-13] MEDS: PROSCAR PO SCH (08:38)
[2019-09-13] MEDS ORDERED: SODIUM CHLORIDE 75 MEQ in CLINIMIX E 4.25%-5% SOLUTION 1,000 ML IV SCH (09:00)
[2019-09-13] MEDS: VANCOMYCIN 1,600 MG in NS 250 ML IV SCH (14:40)
[2019-09-13] MEDS ORDERED: CALMOSEPTINE OINTMENT TOP PRN (15:35)
[2019-09-13] MEDS: SEROQUEL PO SCH (20:10)
[2019-09-13] MEDS: PRAVACHOL PO SCH (20:10)
[2019-09-13] MEDS: REMERON PO SCH (20:10)
--- NOTE | 2019-09-13 21:01 | PROGRESS NOTE ---
DATE: 09/13/2019 SUBJECTIVE: Upon arrival this morning, patient was sitting upright in bed. He was quite interactive. I fed the patient 2 bites of a pancake. The patient assured me that he would eat more throughout the day. Throughout the day, patient did sit in a chair, but no further p.o. intake was noted. This evening, upon my arrival, he was sleeping. Upon waking, patient was fed a whole carton of Boost. The patient's son was at bedside. The patient was quite interactive. He denies fevers, chills, nausea, vomiting, shortness of breath, or chest discomfort. Right parotid gland enlargement is improving. OBJECTIVE: Vital signs: T-max 98.1 degrees, heart rate 84 to 101, respirations 18 to 20, blood pressure 93 to 131 over 52 to 68. General: Chronically ill appearing, in no acute distress. Cardiovascular: Irregularly irregular. No significant murmurs, rubs, or gallops. Pulmonary: Clear to auscultation bilaterally. Abdomen: Soft, nontender, and nondistended. Positive bowel sounds. Extremities: Moves all extremities well. No significant clubbing or cyanosis. There is 1+ lower extremity edema bilaterally. Dermatologic: Evaluation reveals venous stasis changes to bilateral lower extremities. Right parotid gland enlargement without evidence of erythema and tenderness to palpation. LABORATORY DATA: None. ASSESSMENT AND PLAN: 1. Atrial fibrillation with rapid ventricular response: Patient is rate controlled with atenolol and verapamil therapy. He is anticoagulated with Coumadin. 2. Acute kidney injury: Creatinine upon admission was 1.4. With decreasing intravenous fluids, creatinine increased to 1.8. Creatinine yesterday was acceptable. We will continue intravenous fluids for now, but plan to discontinue these in the near future. 3. Dehydration: The patient has achieved resolution with intravenous fluids. 4. Hypertension: Blood pressure is reasonably controlled on his current regimen. 5. Significant weight loss: This has been present over the course of the last several months. [place] CT scan revealed bilateral pleural effusions, mild ascites, and enlargement of the parotid gland. No evidence of definitive malignancy was identified. We will continue to encourage p.o. intake. With resuming his antidepressant, patient's p.o. intake has increased slightly. 6. Right parotitis: We will continue Zosyn and vancomycin therapy. Clinically, he is improved. 7. Urinary retention: We will continue the patient's Coronel catheter. He is asymptomatic. 8. Chronic diastolic heart failure: With nausea and vomiting fluids, the patient has developed some lower extremity edema. As an outpatient, he has been treated with Lasix in the past. We will remain aware. 9. Reflux disease: We will continue aspiration precautions and omeprazole therapy. 10. Hyperlipidemia: We will continue pravastatin therapy. 11. Dementia: The patient's Aricept has been held in the setting of decreased p.o. intake. Seroquel continues. Overall, patient is more interactive today. We will follow this. 12. History of metastatic melanoma: We will remain aware. At this point, this appears to be noncontributory. 13. Supratherapeutic INR: INR is trending downward. We will recheck INR today, trend it tomorrow. 14. Prognosis: I discussed the case in detail with patient's son. The patient will be made a Do Not Resuscitate level 1. With time, I plan to transfer patient back to long term. If he is unable to thrive at the long term, we will plan to transition to hospice care. 15. Disposition: At this point, the patient continues to require retirement care in a hospital setting. We will plan discharge home once appropriate. cc: Jakub Peres MD
[2019-09-14] MEDS: ALBUTEROL NEB INH SCH ×4 (03:34→20:45)
[2019-09-14] MEDS: ZOSYN 3.375 GM in NS 50 ML IV SCH ×4 (03:50→21:04)
[2019-09-14] MEDS: NEXIUM PO SCH (06:08)
[2019-09-14 06:17] LABS: BASO# 0.01 X1000 (0.0-0.2); BASO% 0.2 % (0.0-0.8); EOS# 0.32 X1000 (0.0-0.7); HEMATOCRIT 35.9 % (42.0-52.0); HEMOGLOBIN 11.7 g/dL (14.0-18.0); IMM GRAN# 0.02 X1000 (0.0-0.04); IMM GRAN% 0.4 % (0.0-0.5); INR 2.19; LYMPH% 13.1 % (20.5-51.1); MCH 30.8 PG (27-31); MCHC 32.6 g/dL (33-37); MCV 94.5 FL (81-99); MONO# 0.67 X1000 (0.11-0.59); MONO% 12.5 % (1.7-9.3); MPV 11.2 FL (7.4-10.4); NEUT# 3.62 X1000 (1.4-6.5); NEUT% 67.8 % (42.2-75.2); PLT 153 X1000 (130-400); PROTIME 24.9 Seconds (11.0-16.0); WBC 5.34 X1000 (4.8-10.8)
[2019-09-14 06:38] LABS: AGAP 8; ALB/GLOB RATIO 0.7; ALKALINE PHOSPHATASE 40 U/L (32-122); BUN 29 mg/dL (8-22); CALCIUM 8.4 mg/dL (8.8-10.2); CHLORIDE 108 mmol/L (98-107); COSMO 287; CREATININE 0.5 mg/dL (0.7-1.2); ESTIMATED GFR > 60; GLUCOSE 93 mg/dL (70-104); GOT 11 U/L (10-34); GPT 7 U/L (10-44); POTASSIUM 4.3 mmol/L (3.5-5.1); SODIUM 141 mmol/L (136-145); TCO2 25 mmol/L (25-35); TOTAL BILIRUBIN 0.61 mg/dL (0.20-1.00); TOTAL PROTEIN 4.9 g/dL (6.3-8.3)
[2019-09-14] MEDS ORDERED: SODIUM CHLORIDE 75 MEQ in CLINIMIX E 4.25%-5% SOLUTION 1,000 ML IV SCH (08:19)
[2019-09-14] MEDS: VITAMIN D PO SCH (09:13)
[2019-09-14] MEDS: CYMBALTA PO SCH (09:13)
[2019-09-14] MEDS: PROSCAR PO SCH (09:13)
[2019-09-14] MEDS: ISOPTIN SR PO SCH (09:13)
[2019-09-14] MEDS: FLOMAX PO SCH (09:13)
[2019-09-14] MEDS: TENORMIN PO SCH ×2 (09:13→21:04)
[2019-09-14] MEDS: MUCINEX PO SCH ×2 (09:13→21:03)
[2019-09-14] MEDS: VANCOMYCIN 1,600 MG in NS 250 ML IV SCH (15:12)
--- NOTE | 2019-09-14 17:14 | PROGRESS NOTE ---
DATE: 09/14/2019 SUBJECTIVE: Upon my arrival this morning, patient was resting. Upon arousal, patient states he rested well overnight. We attempted to again feed patient this morning. He accepted some of his Boost drink. He then told me he will decide if he was interested in eating. He stated that it was his choice whether he chose to ear or not. He understands the consequence of not eating. His right parotid gland pain is slowly improving. He denies fevers, chills, nausea, vomiting, shortness of breath, or chest discomfort. OBJECTIVE: T-max 98.5 degrees, heart rate 76 to 93, respirations 15 to 20, blood pressure 93 to 112/45 to 68.General: Chronically ill appearing, no acute distress. Cardiovascular: Irregularly irregular. No significant murmurs, rubs, or gallops. Pulmonary: Clear to auscultation bilaterally. Abdomen: Soft, nontender, nondistended. Positive bowel sounds. Extremities: Moves all extremities well. No significant clubbing or cyanosis. There is 1+ lower extremity edema bilaterally. Dermatologic: Evaluation reveals a mild rash to his groin. LABORATORY DATA: White blood cell count 5.34, hemoglobin 11.7, hematocrit 35.9, platelet count 153,000. PT 24.9, INR is 2.19 sodium 141, potassium 4.3, chloride 108, bicarb 25, BUN 29, creatinine 0.5 glucose 93, calcium 8.4, total bilirubin 0.61, total protein 4.9, albumin 2.0, alkaline phosphatase 40, AST 11, ALT 7. ASSESSMENT AND PLAN: 1. Atrial fibrillation with rapid ventricular response-patient is rate controlled with atenolol and verapamil. He is anticoagulated with Coumadin as described below. 2. Acute kidney injury-patient's creatinine has improved to baseline. We will need to monitor this with discontinuing IV fluids. 3. Dehydration-patient has achieved euvolemia with IV fluids. We will discontinue IV fluids in exchange for encouraging p.o. intake. 4. Hypertension - The patient's blood pressure is controlled on his current regimen. 5. Significant weight loss-no definitive etiology has been identified. Concern has been raised that this may be secondary to underlying depression. His duloxetine has been resumed. Mirtazapine has been increased. We will continue to encourage p.o. intake. 6. Right parotiditis-the patient's overall symptoms are improved with Zosyn and vancomycin therapy. We will continue this. 7. Urinary retention-the patient has a Coronel catheter intact. He is asymptomatic. 8. Chronic diastolic heart failure-with treating his dehydration with IV fluids, patient has now developed lower extremity edema. We will hold further IV fluids for now. We will hold off on resuming Lasix therapy. 9. Reflux disease-we will continue aspiration precautions and omeprazole therapy. 10. Hyperlipidemia-we will continue patient on pravastatin therapy. 11. Dementia-as described on previous notes, Aricept was held secondary to concern this may be decreasing his appetite. He continues to take Seroquel nightly. Symptoms are stable. 12. History of metastatic melanoma-we will remain aware. 13. Supratherapeutic INR-patient's INR has trended back to a therapeutic range. We will resume warfarin tonight. 14. Prognosis-I have discussed this again in detail with patient's son. We will continue supportive care. We anticipate discharge back to [facility] by the end of the week. If the patient chooses not to eat at that point, we will consider palliative measures. 15. Disposition. At this point, patient continues to require group home care in a hospital setting. We will plan discharge home once appropriate. cc: Jakub Peres MD
[2019-09-14] MEDS: SEROQUEL PO SCH (21:03)
[2019-09-14] MEDS: PRAVACHOL PO SCH (21:03)
[2019-09-14] MEDS: MYCOSTATIN POWDER TOP SCH (21:04)
[2019-09-14] MEDS: REMERON PO SCH (21:04)
[2019-09-14] MEDS: COUMADIN PO SCH (21:04)
[2019-09-15] MEDS: ALBUTEROL NEB INH SCH ×4 (03:53→21:05)
[2019-09-15] MEDS: ZOSYN 3.375 GM in NS 50 ML IV SCH ×4 (04:05→20:44)
[2019-09-15] MEDS: NEXIUM PO SCH (06:04)
[2019-09-15] MEDS: ISOPTIN SR PO SCH (09:31)
[2019-09-15] MEDS: FLOMAX PO SCH (09:31)
[2019-09-15] MEDS: VITAMIN D PO SCH (09:31)
[2019-09-15] MEDS: MYCOSTATIN POWDER TOP SCH ×2 (09:31→20:43)
[2019-09-15] MEDS: CYMBALTA PO SCH (09:31)
[2019-09-15] MEDS: MUCINEX PO SCH ×2 (09:31→20:42)
[2019-09-15] MEDS: TENORMIN PO SCH ×2 (09:31→20:42)
[2019-09-15] MEDS: PROSCAR PO SCH (09:31)
[2019-09-15] MEDS: VANCOMYCIN 1,600 MG in NS 250 ML IV SCH (13:54)
[2019-09-15] MEDS: COUMADIN PO SCH (20:43)
[2019-09-15] MEDS: PRAVACHOL PO SCH (20:43)
[2019-09-15] MEDS: SEROQUEL PO SCH (20:43)
[2019-09-15] MEDS: REMERON PO SCH (20:43)
--- NOTE | 2019-09-15 21:25 | PROGRESS NOTE ---
DATE: 09/15/2019 SUBJECTIVE: Upon my arrival this morning, patient was resting in bed. Upon waking, patient states he slept well. The patient was coaxed to drink a small amount of his Boost. At that time, patient stated he was not interested in eating and wanted to . Throughout the day, the patient's condition slightly improved. He had modest p.o. intake. This evening, upon my arrival, patient was in better spirits. The patient drank a full container of Boost. When asked while he was not eating, he stated that he felt as if he would vomit if he ate. I then asked if he wished to as he had said in the morning. Patient denied this. He currently denies fevers, chills, nausea, vomiting, shortness of breath, or chest discomfort. OBJECTIVE: T-max 98.6, heart rate 64 to 108, respirations 14 to 21 blood pressure 91 to 158/53 to 85.General: Chronically ill appearing, no acute distress. Cardiovascular: Irregularly irregular. No significant murmurs, rubs, or gallops. Pulmonary: Clear to auscultation bilaterally. Abdomen: Soft, nontender, nondistended. Positive bowel sounds. Extremities: Moves all extremities well. No significant clubbing or cyanosis. One to 2+ lower extremity edema bilaterally. Dermatologic: Evaluation reveals venous stasis changes of bilateral lower extremities. LABORATORY DATA: None. ASSESSMENT AND PLAN: 1. Atrial fibrillation with rapid ventricular response-patient is rate controlled with atenolol and verapamil therapy. He is anticoagulated with Coumadin therapy. We will check an INR in the a.m. 2. Acute kidney injury-the patient's creatinine upon admission was 1.4. With hydration, this has improved. We will recheck labs in the morning. The patient understands if he does not increase his p.o. intake, he likely will precipitate a kidney failure. 3. Dehydration-the patient has achieved improvement with IV hydration. We will continue to encourage increasing p.o. intake. 4. Hypertension-the patient's blood pressure is controlled on his current regimen. 5. Significant weight loss-this occurred prior to hospitalization. This likely is a consequence of decreasing p.o. intake. Medications have been adjusted. In the setting of some nausea with eating, we will start low-dose Reglan with meals. We will continue mirtazapine and duloxetine as depression likely is playing a role. 6. Right parotiditis-the patient is currently being treated with Zosyn and vancomycin therapy. We will plan to transition patient to oral medications at discharge. 7. Urinary retention-patient has a Coronel catheter. He is asymptomatic. 8. Chronic diastolic heart failure-with treating patient's dehydration with IV fluids, patient now has slight increase in volume with 2+ lower extremity edema. He has been treated with Lasix in the past. We will hold off on resuming therapy, but we will discontinue IV fluids. 9. Reflux disease-we will continue patient on aspiration precautions and omeprazole therapy. 10. Hyperlipidemia-we will continue patient on pravastatin therapy. 11. Dementia-the patient's Aricept has been held secondary to concern this may be causing some nausea. We will continue Seroquel therapy. Symptoms are reasonably controlled. 12. History of metastatic melanoma-we will remain aware. 13. Supratherapeutic INR-patient's last INR returned acceptable. We will recheck levels in the morning. 14. Prognosis-I have discussed patient's case in detail with his daughter in-law. If the patient chooses not to eat, at this point, I am unable to reverse this short of placing a PEG tube. At this point, patient's family is not interested. We will plan discharge to [facility] tomorrow with home health and physical therapy. We will continue to encourage p.o. intake. 15. Disposition. At this point, patient continues to require senior care care in the hospital setting. We anticipate discharge to [facility] tomorrow. cc: Jakub Peres MD
[2019-09-15] MEDS: AUGMENTIN PO SCH (22:00)
[2019-09-16] MEDS: ALBUTEROL NEB INH SCH ×2 (03:20→08:58)
[2019-09-16] MEDS: NEXIUM PO SCH (06:03)
[2019-09-16 06:13] LABS: BASO# 0.01 X1000 (0.0-0.2); BASO% 0.2 % (0.0-0.8); EOS# 0.16 X1000 (0.0-0.7); EOS% 2.9 % (0.0-10.0); HEMATOCRIT 34.7 % (42.0-52.0); HEMOGLOBIN 11.2 g/dL (14.0-18.0); LYMPH# 0.78 X1000 (1.2-3.4); LYMPH% 14.1 % (20.5-51.1); MCH 30.8 PG (27-31); MCHC 32.3 g/dL (33-37); MCV 95.3 FL (81-99); MONO# 1.03 X1000 (0.11-0.59); MONO% 18.6 % (1.7-9.3); MPV 11.1 FL (7.4-10.4); NEUT# 3.57 X1000 (1.4-6.5); NEUT% 64.2 % (42.2-75.2); PLT 141 X1000 (130-400); RBC 3.64 XMIL (4.7-6.1); RDW 20.6 % (11.5-14.5); WBC 5.55 X1000 (4.8-10.8)
[2019-09-16 06:18] LABS: INR 1.79; PROTIME 21.2 Seconds (11.0-16.0)
[2019-09-16 06:29] LABS: AGAP 7; ALB/GLOB RATIO 0.6; ALBUMIN 1.8 g/dL (3.5-5.0); ALKALINE PHOSPHATASE 46 U/L (32-122); BUN 21 mg/dL (8-22); CALCIUM 8.4 mg/dL (8.8-10.2); CHLORIDE 108 mmol/L (98-107); COSMO 280; CREATININE 0.6 mg/dL (0.7-1.2); ESTIMATED GFR > 60; GLUCOSE 86 mg/dL (70-104); GOT 14 U/L (10-34); GPT 7 U/L (10-44); POTASSIUM 4.3 mmol/L (3.5-5.1); SODIUM 139 mmol/L (136-145); TCO2 24 mmol/L (25-35); TOTAL BILIRUBIN 0.55 mg/dL (0.20-1.00); TOTAL PROTEIN 4.9 g/dL (6.3-8.3)
[2019-09-16] MEDS: AUGMENTIN PO SCH (08:49)
[2019-09-16] MEDS: VITAMIN D PO SCH (08:49)
[2019-09-16] MEDS: FLOMAX PO SCH (08:49)
[2019-09-16] MEDS: CYMBALTA PO SCH (08:49)
[2019-09-16] MEDS: ISOPTIN SR PO SCH (08:50)
[2019-09-16] MEDS: TENORMIN PO SCH (08:50)
[2019-09-16] MEDS: PROSCAR PO SCH (08:50)
[2019-09-16] MEDS: MUCINEX PO SCH (08:50)
[2019-09-16] MEDS: MYCOSTATIN POWDER TOP SCH (08:53)
[2019-09-16 11:38] VITALS: BP 92/52
--- NOTE | 2019-09-16 12:21 | DISCHARGE SUMMARY ---
ADMISSION DATE: 09/03/2019 DISCHARGE DATE: 09/16/2019 ADMISSION DIAGNOSIS: Low blood pressure. DISCHARGE DIAGNOSES: 1. Atrial fibrillation with rapid ventricular response, rate controlled. 2. Acute kidney injury, improved. 3. Dehydration, improved. 4. Hypertension, present on arrival. 5. Significant weight loss, multifactorial. 6. Right parotiditis, improving. 7. Urinary retention, present on arrival. 8. Chronic diastolic heart failure, present on arrival. 9. Reflux disease, present on arrival. 10. Hyperlipidemia, present on arrival. 11. Dementia, present on arrival. 12. History of metastatic melanoma, present on arrival. 13. Anticoagulation, present on arrival. CONSULTATIONS: Danny Sosa MD with Urology was consulted for further evaluation and management of urinary retention. PROCEDURES: 1. A CT scan of the chest, abdomen, and pelvis was performed on 09/06/2019, which revealed bilateral pleural effusions and atelectasis. Left gynecomastia. Minimal ascites. Diverticula in the bladder. Improved prostate enlargement. Possibility of cystitis cannot be excluded. Stable abdominal aortic aneurysm. 2. A CT scan of the neck was performed on 09/08/2019, which revealed mild skin thickening and subcutaneous inflammation of the right submandibular fossa. Suggests cellulitis. Moderate enlargement of the right parotid gland. This may be involved with cellulitis or may represent parotiditis. HISTORY AND PHYSICAL EXAMINATION: See admit note. PHYSICAL EXAMINATION PRIOR TO DISCHARGE: Vital signs: Temperature 98.0 degrees, heart rate 94, respirations 22, blood pressure is 114/71. General: Chronically ill-appearing, no acute distress. Cardiovascular: Irregularly, irregular. No significant murmurs, rubs, or gallops. Pulmonary: Clear to auscultation bilaterally. Abdomen: Soft, nontender, nondistended. Positive bowel sounds. Extremities: Moves all extremities well. No significant clubbing or cyanosis, 2+ lower extremity edema bilaterally. Dermatologic: Evaluation reveals venous stasis changes to bilateral lower extremities. LABORATORY DATA PRIOR TO DISCHARGE: White blood cell count 5.55, hemoglobin 11.2, hematocrit 34.7, platelet count a 141,000. PT of 21.2 INR is 1.79. Sodium 139, potassium 4.3 chloride 108, bicarbonate 24, BUN 21, creatinine 0.6, glucose 86, calcium 8.4, total bilirubin 0.55, total protein 4.9, albumin 1.8, alkaline phosphatase 46, AST 14, ALT 7. HOSPITAL COURSE: The patient was admitted as per history and physical examination. Hospital course per condition is as follows. 1. Atrial fibrillation with rapid ventricular response-upon admission, patient was noted to have atrial fibrillation with rapid ventricular response. This likely was a consequence of his decreased p.o. intake as well as possibly decreased medication intake. The patient was initially placed on a Cardizem drip. This rapidly was converted to adjustments in medication. At time of discharge, patient was rate controlled with atenolol and verapamil therapy. He is anticoagulated with Coumadin as described below. He is asymptomatic. 2. Acute renal failure-upon admission, patient's creatinine was 1.4. With hydration, this improved. While hospitalized, patient's IV fluids were discontinued. Unfortunately, with decreased p.o. intake, he again developed acute renal failure with creatinine rising as great is 1.8. Intravenous hydration was again initiated with improvement. Creatinine is acceptable at time of discharge. Patient understands the importance of p.o. intake to maintain adequate renal function. Once again, this will be followed. 3. Dehydration-upon admission, patient was noted to be dehydrated. This likely is secondary to decreased p.o. intake. With IV hydration, patient has achieved improvement. The patient will be discharged with 1 to 2+ lower extremity edema bilaterally. Historically, he has been treated with Lasix therapy. In the setting of decreasing p.o. intake, I do not feel resuming this is appropriate. We will change this only to as needed. I am concerned that if patient's p.o. intake remains minimal, he likely will become dehydrated again. 4. Hypertension-the patient's blood pressure remained controlled throughout hospitalization. He will be discharged on medication as adjusted while hospitalized. 5. Significant weight loss-this was diagnosed prior to hospitalization. This likely is a consequence of his decreasing p.o. intake. While hospitalized, CT scan of the chest, abdomen, and pelvis were performed. The only potential etiologies included a small pleural effusion and mild ascites. While this could represent malignant etiology, this likely was secondary to his diastolic dysfunction. The patient and I discussed this in detail. With his underlying depression, I am concerned that this is rather the cause of his weight loss. While hospitalized, patient's p.o. intake remained very marginal. He would drink Boost once or twice per day. Otherwise, he simply refused to eat. I discussed options including a PEG tube with family. At this point, this does not appear to be patient's wishes. For now, we will discharge patient with encouragement. If he chooses not to eat, the only other options would be that of Psychiatric consultation versus hospice care. The patient's family is fully aware. 6. Decreased bowel movements-while hospitalized, patient did not have a bowel movement, however his p.o. intake was minimal. He has no evidence of constipation at present time. This will need to be followed in the intermediate setting as well. 7. Right parotiditis-while hospitalized, patient developed significant right parotid gland enlargement and tenderness. He was treated with Zosyn and vancomycin while hospitalized. He tolerated this well. His swelling and pain improved considerably. Patient will be discharged with 7 additional days of Cipro and clindamycin therapy. 8. Urinary retention-the patient was diagnosed in the recent past by Dr. Sosa. A Coronel catheter is in place. Dr. Sosa has recommended routine Coronel catheter care and change every month. We will defer this to intermediate staff. 9. Chronic diastolic heart failure-patient has longstanding disease. Historically, he has had massive lower extremity edema. As he becomes dehydrated, his lower extremity edema has essentially resolved. With resuming hydration, he has again developed lower extremity edema. At this point, he will be discharged with 1 to 2+ lower extremity edema bilaterally. His Lasix will be held as there is no evidence of pulmonary concerns. This will need to be followed as well. As-needed Lasix will be offered. 10. Reflux disease-patient was treated with aspiration precautions and omeprazole while hospitalized with adequate response. 11. Hyperlipidemia-patient was continued on pravastatin therapy while hospitalized. 12. Dementia-upon admission, patient was treated with Aricept and Seroquel therapy. In the setting of decreased p.o. intake, I was concerned Aricept could be contributing. This was discontinued. Seroquel was continued. His mental status has remained fairly stable. 13. Profound depression-upon admission, patient was noted to be profoundly depressed. On several occasions, patient requested that I allow him to while hospitalized. The patient's duloxetine was resumed and increased to 60 mg while hospitalized. Remeron therapy was increased to 15 mg at bedtime. We will remain aware that underlying depression may be contributing to his lack of p.o. intake. I have discussed this in great detail with family as well. 14. History of metastatic melanoma-will remain aware that this could be contributing to his ascites and pleural effusions, however this seems less likely. We will remain aware. 15. Supratherapeutic INR-while hospitalized, patient's INR increased. His INR was held for several days. At time of discharge, patient is slightly subtherapeutic. Coumadin has been resumed. I would recommend rechecking levels in approximately 3 days. 16. Prognosis-I have discussed case in detail with patient's son and [id number]. They understand our hospitalized limitations. We will optimize his management here. He will need close followup and encouragement for p.o. intake as an outpatient. If he chooses not to eat, our only other options would be PEG tube versus Psychiatric consultation versus hospice consultation. The patient's family is aware of our limitations. We will discharge patient with Physical Therapy. DISCHARGE CONDITION: Stable, but very weak. DISPOSITION: Discharge to intermediate. MEDICATIONS: 1. Acetaminophen 325 mg every 6 hours as needed. 2. Atenolol 25 mg every 12 hours. 3. Vitamin D3 3000 units every morning. 4. Blistex as needed. 5. Duloxetine 60 mg daily. 6. Nexium 40 mg daily. 7. Finasteride 5 mg daily. 8. Mucinex 600 mg twice daily. 9. Calmoseptine ointment as needed. 10. Mirtazapine 15 mg at bedtime. 11. Nystatin powder to his groin twice daily as needed. 12. Zofran 4 mg every 6 hours as needed. 13. Pravastatin 20 mg at bedtime. 14. Seroquel 50 mg at bedtime. 15. Tamsulosin 0.4 mg daily. 16. Verapamil ER 180 mg daily. 17. Albuterol every 6 hours. 18. Ciprofloxacin 500 mg twice daily for 7 days. 19. Clindamycin 300 mg every 8 hours for 7 days. 20. Fenofibrate 145 mg at bedtime. 21. Lasix 80 mg daily as needed. 22. Nystatin swish and swallow 5 mL 4 times daily for 1 week then as needed. 1. Coumadin 2 mg at bedtime. FOLLOWUP: 1. The patient is to follow up with intermediate doctor as arranged. The patient is to follow up with Dr. Sosa as arranged. 2. Coronel catheter is to be replaced once a month this. cc: Jakub Peres MD
== END 2019-09-16 14:32 | DRG 309 ==
LOC: ED 18:58 → 2N 09-03 00:55 → SUATTDRO 09-03 00:55 → 2N 09-06 16:07
PROVIDERS: ADMIT Internal Medicine; ATTEND Internal Medicine